=== PATIENT | male | born 1965 | race Caucasian/White ===

== ENCOUNTER 2023-02-14 05:41 | Day surgery (SDC) | payer OTHER ==
[2023-02-14] MEDS ORDERED: ALPRAZolam 0.25 MG TAB PO PRN (05:58)
[2023-02-14] MEDS ORDERED: ASPIRIN 325 MG TAB PO ONE (05:58)
[2023-02-14] MEDS ORDERED: ALPRAZolam 0.5 MG TAB PO PRN (05:58)
[2023-02-14] MEDS ORDERED: NITROGLYCERIN SL TABS 0.4 MG TAB SUBLINGUAL PRN (05:58)
[2023-02-14] MEDS: SODIUM CHLORIDE 0.9% 1,000 ML in EMPTY BAG 1 BAG IV SCH ×2 (06:29→16:43)
[2023-02-14] MEDS ORDERED: ASPIRIN 81 MG ONE (06:32)
[2023-02-14 06:34] LABS: Basophils % (A) 1 %; Eosinophils # (A) 0.3 k/uL (0-0.7); Eosinophils % (A) 4 %; HCT 44.2 % (39.0-53.0); HGB 14.9 gm/dL (13.0-17.5); Lymphocytes # (A) 1.8 k/uL (1.0-4.8); Lymphocytes % (A) 24 %; MCH 29.5 pg (25.0-35.0); MCHC 33.8 g/dL (31.0-37.0); MCV 87.2 fL (80.0-100.0); Monocytes # (A) 0.7 k/uL (0-1.0); Monocytes % (A) 9 %; Neutrophils # (A) 4.8 k/uL (1.3-7.7); Neutrophils % (A) 61 %; Platelet Count 258 k/uL (150-450); RBC 5.06 m/uL (4.30-5.90); RDW 12.5 % (11.5-15.5); WBC 7.8 k/uL (3.8-10.6)
[2023-02-14 06:50] LABS: African American GFR (CKD) >90 (>60 ml/min/1.73 sqM); Anion Gap 8 mmol/L; Blood Urea Nitrogen 16 mg/dL (9-20); Calcium 9.4 mg/dL (8.4-10.2); Carbon Dioxide 26 mmol/L (22-30); Chloride 105 mmol/L (98-107); Glucose 138 mg/dL (74-99); Non-African American GFR(CKD) >90 (>60 ml/min/1.73 sqM); Potassium 4.5 mmol/L (3.5-5.1); Sodium 139 mmol/L (137-145)
[2023-02-14] MEDS ORDERED: HEPARIN SODIUM 1,000 UN/ML (10ML VL) ONE (07:32)
[2023-02-14] MEDS ORDERED: MIDAZOLAM 2 MG/2 ML VIAL IV ONE (07:51)
[2023-02-14] MEDS ORDERED: LIDOCAINE 1% INJ 10MG/ML (20 ML MDV) SQ ONE (07:54)
[2023-02-14] MEDS ORDERED: HEPARIN SODIUM 1,000 UN/ML (10ML VL) IV ONE (07:58)
[2023-02-14] MEDS ORDERED: CLOPIDOGREL 75 MG TAB ONE (08:20)
[2023-02-14] MEDS ORDERED: CLOPIDOGREL 75 MG TAB PO ONE (08:22)
[2023-02-14] MEDS ORDERED: IOPAMIDOL-370 100ML BTL INJ ONE (08:22)
--- NOTE | 2023-02-14 08:28 | P.PCN ---
Date of Procedure: 02/14/23 Operative Findings: PERCUTANEOUS CLOSURE OF FENESTRATED INTERATRIAL SEPTUM PERFORMING PHYSICIAN: Alfredo Tate MD, [facility] PROCEDURE PERFORMED: 1. Successful percutaneous closure of PFO using Amplatzer Occluder with an excellent results and without any residual shunt. 2. Intracardiac echocardiogram imaging. 3. Right atrial angiogram. 4. Ultrasound-guided access of the right common femoral vein 2 INDICATION: This is a 57-year-old gentleman who was diagnosed recently with a stroke. He underwent further workup including transesophageal echocardiogram and that revealed patent foramen ovale with [id number] shunt. APPROACH: Right common femoral vein 2 COMPLICATION: None. LEVEL OF SEDATION: Moderate with sedation length of 29 minutes. PROCEDURE DESCRIPTION: After obtaining informed consent, the patient was brought to the cardiac slab off mill tender. The right common femoral vein was cannulated x2 using micropuncture technique under ultrasound guidance, the micropuncture wire passed easily, then I placed two 8-Honduran sheath in the right groin. Subsequently I cannulated the left common femoral vein with the same technique and I placed an 8-Honduran sheath there as well. At that point, anticoagulation was initiated using heparin and the patient was given a bolus of 4,000 units of heparin IV with continuous ACT monitoring throughout the procedure. After that, the intracardiac echocardiogram probe was advanced through one of the venous sheath all the way to the right atrium where we did interrogate the interatrial septum and identified the patent foramen ovale which was measured about 25 mm. Subsequently, I did cross the defect using 0.035 J-wire with the backup support of multipurpose catheter. The wire was advanced all the way to the left upper pulmonary vein and subsequently the catheter was advanced over the wire to the left upper pulmonary vein. The 0.035 J-wire was pulled out and then I advanced a giovanna wire. Subsequently, the multipurpose catheter was withdrawn out and the wire was left in the left upper pulmonary vein. After that, I did prep the Amplatzer PFO occluder under saline. Subsequently, I did exchange my 8-Honduran sheath into the Shuttle sheath over a 0.035 giovanna wire. The sheath was advanced all the way under fluoroscopy guidance to the left atrium. Subsequently, the dilator of the sheath was withdrawn out along with the wire. After that, I did load the Amplatzer occluder under continuous saline flush to the sheath. The device was advanced all the way through the sheath were I did where I did deploy initially the left atrial occluder and then I pulled back the sheath and the left atrial occluder all the way to the interatrial septum and then I deployed the right atrial occluder after that. Before I released the device, I did interrogate the septum using ice images on multiple views. After I realized that the device was stable enough and in good position the device was released. Interrogation using ice was also performed after the device was released. By the end I did right atrial angiogram. The procedure was completed without any complication. POSTPROCEDURE MANAGEMENT: 1. Dual anti-platelet therapy. 2. An echo in 24 hours, in 1 week, in 4 weeks, as well as in 6 months.
[2023-02-14] MEDS ORDERED: SODIUM CHLORIDE 0.9% 1,000 ML IV SCH (09:00)
[2023-02-14] MEDS ORDERED: CLOPIDOGREL 75 MG TAB PO SCH (21:00)
[2023-02-14] MEDS ORDERED: ATORVASTATIN 80 MG TAB PO SCH (21:00)
[2023-02-15] MEDS: SODIUM CHLORIDE 0.9% 1,000 ML in EMPTY BAG 1 BAG IV SCH (05:09)
[2023-02-15 07:16] VITALS: BP 105/68; PULSE 72; RESP 15; TEMP 97.9
--- NOTE | 2023-02-15 08:38 | XR ---
EXAMINATION TYPE: XR chest 2V DATE OF EXAM: 02/15/2023 COMPARISON: None INDICATION: ASD PFO placement TECHNIQUE: Frontal and lateral views of the chest are obtained. FINDINGS: The heart size is normal. The pulmonary vasculature is normal. The lungs are clear. Loop recorder is over the chest. There is placement of a device in the cardiac region. IMPRESSION: 1. No acute pulmonary process.
[2023-02-15] MEDS ORDERED: ASPIRIN 81 MG PO SCH (09:00)
[2023-02-15 09:55] LABS: African American GFR (CKD) 96.4 (60.0-200.0); Anion Gap 10.2 mmol/L (10.00-18.00); BUN/Creat Ratio 11.9 Ratio (12.00-20.00); Blood Urea Nitrogen 11.9 mg/dL (9.0-27.0); Calcium 9.5 mg/dL (8.7-10.3); Carbon Dioxide 22.8 mmol/L (20.0-27.5); Non-African American GFR(CKD) 83.2 (60.0-200.0); Potassium 4.6 mmol/L (3.5-5.5)
[2023-02-15 10:38] LABS: Basophils # (A) 0.04 X 10*3/uL (0.00-0.10); Basophils % (A) 0.4 %; Eosinophils # (A) 0.22 X 10*3/uL (0.04-0.35); Eosinophils % (A) 2.5 %; HGB 14.6 g/dL (13.0-17.0); Immature Grans, Automated 0.6 %; Lymphocytes # (A) 1.73 X 10*3/uL (0.90-5.00); Lymphocytes % (A) 19.4 %; MCH 28.8 pg (27.0-32.0); MCHC 33.2 g/dL (32.0-37.0); MCV 86.8 fL (80.0-97.0); Mean Platelet Volume 9.6 fL (9.5-12.2); Monocytes # (A) 0.83 X 10*3/uL (0.20-1.00); Monocytes % (A) 9.3 %; NRBC Per 100 WBC 0 /100 WBCS (0.0-0.0); Neutrophils # (A) 6.04 X 10*3/uL (1.80-7.70); Neutrophils % (A) 67.8 %; Platelet Count 231 X 10*3/uL (140-440); RBC 5.07 X 10*6/uL (4.40-5.60); RDW 12.5 % (11.5-14.5); WBC 8.91 X 10*3/uL (4.50-10.00)
--- NOTE | 2023-02-15 20:51 | P.DS ---
Providers Attending physician: Alfredo Tate Primary care physician: Corwin Berger MD Hospital Course: The patient is a pleasant 57-year-old gentleman who underwent yesterday successful percutaneous closure of PFO with a good results and no complication. He was seen this morning. He is asymptomatic and hemodynamically stable. Right groin is soft and nontender with no bruises. The patient is going to be discharged home. Plan - Discharge Summary Discharge Rx Participant: No New Discharge Prescriptions: Continue Clopidogrel [Plavix] 75 mg PO HS Atorvastatin [Lipitor] 80 mg PO HS Aspirin 81 mg PO DAILY Discharge Medication List Atorvastatin [Lipitor] 80 mg PO HS 01/11/23 [History] Clopidogrel [Plavix] 75 mg PO HS 01/11/23 [History] Aspirin 81 mg PO DAILY 02/14/23 [History] Follow up Appointment(s)/Referral(s): Alfredo Tate MD [STAFF PHYSICIAN] - 03/15/23 5:00 pm (NEEDS A 1 WEEK, 1 MONTH, 6 MONTHS, AND 1 YEAR FOLLOW UP APPOINTMENT. patient to go to office in [place].) Patient Instructions/Handouts: Moderate Sedation (DC), Heart Catheterization (DC), Patent Foramen Ovale (DC) Activity/Diet/Wound Care/Special Instructions: *NO LIFTING, PUSHING, OR PULLING ANYTHING OVER 5 POUNDS FOR 5 DAYS *NO DRIVING FOR 3 DAYS *YOU CAN SHOWER TOMORROW BUT DO NOT SUBMERSE YOUR PUNCTURE SITE IN WATER FOR A FEW DAYS TO PREVENT INFECTION - SO NOT TUB BATHS, POOLS, HOT TUBS, DISHES..ETC *ANY SIGNS OF BLEEDING (HARDNESS, SWELLING, OR EXCESSIVE BRUISING) HOLD DIRECT PRESSURE ON YOUR PUNCTURE SITE AND COME TO THE NEAREST EMERGENCY ROOM TO GET YOUR PUNCTURE SITE LOOKED AT - DO NOT DRIVE YOURSELF! EITHER CALL EMS OR HAVE SOMEONE DRIVE YOU! Discharge Disposition: HOME SELF-CARE
--- NOTE | 2023-02-16 13:49 | CA ---
Transthoracic Echo Report Name: Itz Grace Age: 57 Gender: M : 1965 Exam Date: 02/15/2023 07:21 Exam Location: [place] [facility] Ht (in): 67 Wt (lb): 202 Ordering Physician: Alfredo Tate MD ([id number]) Attending/Referring Phys: Alfredo Tate MD ([id number]) Direct Sales Consultant Veronique Patterson RDCS Procedure CPT: Indications: Post ASD/PFO Insertion Cardiac Hx: Technical Quality: Good Contrast 1: Total Dose (mL): Contrast 2: Total Dose (mL): MEASUREMENTS (Male / Female) Normal Values 2D ECHO LV Diastolic Diameter PLAX 4.9 cm 4.2 - 5.9 / 3.9 - 5.3 cm LV Systolic Diameter PLAX 2.5 cm IVS Diastolic Thickness 1.1 cm 0.6 - 1.0 / 0.6 - 0.9 cm LVPW Diastolic Thickness 1.1 cm 0.6 - 1.0 / 0.6 - 0.9 cm LV Relative Wall Thickness 0.4 RV Internal Dim ED PLAX 2.7 cm LA Systolic Diameter LX 3.4 cm 3.0 - 4.0 / 2.7 - 3.8 cm LV Diastolic Volume MOD BP 77.3 cm??? 67 - 155 / 56 - 104 cm??? LV Systolic Volume MOD BP 39.7 cm??? 22 - 58 / 19 - 49 cm??? LV Ejection Fraction MOD BP 48.7 % >= 55 % LV Diastolic Volume MOD 4C 81.9 cm??? LV Systolic Volume MOD 4C 42.2 cm??? LV Ejection Fraction MOD 4C 48.5 % LV Diastolic Length 4C 8.1 cm LV Systolic Length 4C 6.3 cm LV Diastolic Volume MOD 2C 65.5 cm??? LV Systolic Volume MOD 2C 34.9 cm??? LV Ejection Fraction MOD 2C 46.6 % LV Diastolic Length 2C 7.0 cm LV Systolic Length 2C 6.8 cm LA Volume 38.2 cm??? 18 - 58 / 22 - 52 cm??? M-MODE Aortic Root Diameter MM 3.2 cm MV E Point Septal Separation 0.4 cm AV Cusp Separation MM 2.4 cm DOPPLER AV Peak Velocity 101.4 cm/s AV Peak Gradient 4.1 mmHg MV Area PHT 4.0 cm??? Mitral E Point Velocity 52.7 cm/s Mitral A Point Velocity 50.2 cm/s Mitral E to A Ratio 1.1 MV Deceleration Time 189.4 ms MV E' Velocity 6.3 cm/s Mitral E to MV E' Ratio 8.3 FINDINGS Left Ventricle Left ventricular ejection fraction is estimated at 50-55 %. Left ventricular cavity size normal. Borderline left ventricular hypertrophy. Normal left ventricular wall motion. Right Ventricle Normal right ventricular size and function. No TR Right Atrium Normal right atrial size. Closure device seen on the atrial level without evidence of shunt. Left Atrium Normal left atrial size. Mitral Valve Structurally normal mitral valve. No evidence for mitral valve prolapse. Trace mitral regurgitation. Aortic Valve Trileaflet aortic valve. No aortic valve stenosis or regurgitation. Tricuspid Valve Structurally normal tricuspid valve. No tricuspid stenosis, regurgitation or prolapse. Pulmonic Valve Structurally normal pulmonic valve. No pulmonic regurgitation. Pericardium Normal pericardium. No pericardial effusion. Aorta Normal size aortic root and proximal ascending aorta. CONCLUSIONS Left ventricular ejection fraction 50-55% Borderline increased left ventricular wall thickness Closure device seen in the interatrial septum without shunt Trace mitral regurgitation No pericardial effusion Previewed by: Dr. Darin Mendez DO (Electronically Signed) Final Date: 16 February 2023 13:49
== END 2023-02-15 11:20 | disposition home or self-care (01) ==
LOC: CATHCVL 05:41 → 6NMEDSUR 08:20 → CATHCVL 02-15 11:20
PROVIDERS: ATTEND Internal Medicine Interventional Cardiology
DX: Q21.12 Patent foramen ovale (principal); I63.9 Cerebral infarction, unspecified; E78.5 Hyperlipidemia, unspecified; Z95.818 Presence of other cardiac implants and grafts; Z79.01 Long term (current) use of anticoagulants; Z79.899 Other long term (current) drug therapy; Z82.49 Family history of ischemic heart disease and other diseases of the circulatory system
CPT/HCPCS: 93580; 93662; 99152; 99153; 93306; 80048 ×2; 85025 ×2; 71046; J2250; J0690; J2001; J1644; Q9967

== ENCOUNTER 2023-04-18 07:31 | Day surgery (SDC) | payer OTHER ==
[~2023-04-18 07:31] MED LIST: ALPRAZolam 0.25 MG TAB PO PRN; ALPRAZolam 0.5 MG TAB PO PRN; ASPIRIN 325 MG TAB PO STA; ATORVASTATIN 80 MG TAB PO STA; HEPARIN SODIUM,PORCINE 10,000 UNIT in SODIUM CHLORIDE 0.9% 1,000 ML IRRIGATION PRN; HEPARIN SODIUM,PORCINE 2,500 UNIT in SODIUM CHLORIDE 0.9% 250 ML IRRIGATION PRN; NITROGLYCERIN SL TABS 0.4 MG TAB SUBLINGUAL PRN; SODIUM CHLORIDE 0.9% 1,000 ML in EMPTY BAG 1 BAG IV SCH
[2023-04-18] MEDS ORDERED: SODIUM CHLORIDE 0.9% 1,000 ML IV ONE (07:38)
[2023-04-18 07:53] VITALS: RESP 18; TEMP 98.2
[2023-04-18] MEDS ORDERED: VERAPAMIL 2.5 MG/ML 2 ML AMP ONE ×2 (09:12→09:16)
[2023-04-18] MEDS ORDERED: MIDAZOLAM 2 MG/2 ML VIAL IV ONE ×2 (09:16→09:26)
[2023-04-18] MEDS ORDERED: LIDOCAINE 1% INJ 10MG/ML (5 ML VIAL-PF) SQ ONE (09:18)
[2023-04-18] MEDS ORDERED: VERAPAMIL SYRINGE (5 MG/10 ML) INTRAARTER ONE (09:19)
[2023-04-18] MEDS ORDERED: HEPARIN SODIUM 1,000 UN/ML (10ML VL) IV ONE (09:23)
[2023-04-18] MEDS ORDERED: IOPAMIDOL-370 100ML BTL INJ ONE (09:34)
[2023-04-18] MEDS ORDERED: RX INFO: IV CONTRAST WAS GIVEN 1 EACH MISC MISCELLANE PRN (09:37)
--- NOTE | 2023-04-18 09:43 | P.PCN ---
Date of Procedure: 04/18/23 Operative Findings: CARDIAC CATHETERIZATION PERFORMING PHYSICIAN: Alfredo Tate MD, RPVI PROCEDURE PERFORMED: 1. Selective right and left coronary angiogram 2. Left heart catheterization INDICATION: The patient is a 57-year-old gentleman with hypertension and dyslipidemia and recently diagnosed stroke status post percutaneous closure of patent foramen ovale. 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 The test came in to be abnormal. It did show evidence of ischemia. Definitely diagnosed as was requested by the patient. For that reason a heart catheterization was advised. COMPLICATION: None APPROACH: Right radial artery LEVEL OF SEDATION: Moderate with a sedation length of 20 minutes PROCEDURE DESCRIPTION: After obtaining an informed consent, the patient was brought to cardiac wharf labourer. Local anesthesia was performed using lidocaine subcutaneously. The right radial artery was cannulated using Seldinger technique, the guidewire passed easily, following that we advanced a 5-Finnish sheath dilator assembly, the wire and dilator were removed and sheath was flushed. Following that, 2 mg of verapamil along with 3000 unit heparin were given. Selective right and left coronary angiogram using a 6-Finnish JR4 and JL 3.5 catheters. Following that we did left heart catheterization using 6-Finnish pigtail catheter. The procedure was completed there was no complication. SELECTIVE CORONARY ANGIOGRAM: The right coronary artery: Large caliber vessel and a dominant vessel and calcified vessel. The mid RCA has a focal calcified lesion appears to be in the range of 70%. The RCA distally bifurcates into PDA and PLV branches. The PDA branch appeared to be angiographically normal and the PLV branch has a lesion appeared to be in the range of 60%. Left main: Calcified with disease appears to be in the range of 20-30%. Bifurcates into an ulcer he asked and LAD. The left circumflex: The LCx is chronically occluded and fills by ipsilateral collateral. The LCx appeared to be calcified as well. The ramus intermedius: Has an ostial lesion appears to be in the range of 80-90%. The left anterior descending artery: The LAD proximally has a lesion appears to be in the range of 80-90%. The mid and distal LAD appeared to have mild disease only. The LAD gives rises into the first diagonal branch which appeared to be disease as well and is about 2 mm vessel and also second diagonal branch which has an ostial lesion appears to be in the range of 60%. HEMODYNAMICS: The LVEDP was 8 mmHg was no significant gradient across aortic valve CONCLUSION: 1. Calcified right and left coronary system 2. Severe triple-vessel coronary artery disease. 3. Severe disease involving the mid RCA and PLV branch of the RCA 4. Occluded left circumflex coronary system 5. Severe disease involving the ostial ramus intermedius 6. Severe disease involving the proximal LAD POSTPROCEDURE MANAGEMENT: Giving the above anatomy I would advised the patient to be evaluated by cardiothoracic surgeon for evaluation of coronary artery that is grafting. Meanwhile aggressive cholesterol control including high intensity statin and anti-ischemic medications including beta emma.
[2023-04-18] MEDS ORDERED: SODIUM CHLORIDE 0.9% 1,000 ML IV SCH (09:45)
--- NOTE | 2023-04-18 11:48 | CT ---
EXAMINATION TYPE: CT chest wo con DATE OF EXAM: 04/18/2023 COMPARISON: NONE HISTORY: Eval aorta. Pre-op CABG CT DLP: 714 mGycm. Automated Exposure Control for Dose Reduction was Utilized. TECHNIQUE: CT scan of the thorax is performed without IV contrast. FINDINGS: LUNGS: The lungs are grossly clear, there is no concerning parenchymal mass or nodule identified. T here is no pleural effusion or pneumothorax seen. The tracheobronchial tree is patent. MEDIASTINUM: Lack of IV contrast is noted to limit evaluation for mediastinal and especially hilar ad enopathy. There are no definitive greater than 1 cm mediastinal lymph nodes. No cardiomegaly or per icardial effusion is seen. There is three-vessel coronary artery calcification and/or stents. There i s surgical change from atrial septal repair are noted. The aorta measures up to roughly 3.1 cm and th e root. Ascending aorta measures up to 3.5 cm in diameter axial image 27. There is normal three-vesse l origin from the aortic arch. No descending thoracic aortic aneurysm. OTHER: Contrast is being excreted in both kidneys presumed from recent angiogram evaluation. IMPRESSION: No acute findings are evident. Further details as noted above.
--- NOTE | 2023-04-18 12:18 | P.GSCN ---
History of Present Illness Consult date: 04/18/23 Reason for Consult: 3V CAD Requesting physician: Alfredo Tate History of present illness: This is a 57 year old male patient who follows outpatient with Nurse Practitioner Anastasia Nolan for primary care and Dr. Tate for cardiology. He recently had a stroke and workup revealed patent foramen ovale. He underwent PFO closure with Amplatzer Occluder in January 2023. Subsequently he underwent stress test as required by the [employer] for his job, and the stress test was abnormal. He was recommended to undergo heart catheterization which was completed today by Dr. Tate which demonstrated mid RCA stenosis 70%, PLV branch of the RCA 60%, VIDEO CLERK of the left circumflex, ostial ramus 80-90%, and proximal LAD with 80-90% with ostial diagonal #2 60%. Due to these findings consultation was placed for Dr. Barr from cardiothoracic surgery for surgical recommendations, and the case was discussed between Dr. Barr and Dr. Tate. Review of Systems Review of systems was completed and was negative Past Medical History Past Medical History: Coronary Artery Disease (CAD), CVA/TIA, Hyperlipidemia Additional Past Medical History / Comment(s): 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 recent abnormal stress test History of Any Multi-Drug Resistant Organisms: None Reported Additional Past Surgical History / Comment(s): PFO closure with amplatzer occluder 02/14/23 Past Anesthesia/Blood Transfusion Reactions: No Reported Reaction Type of Cardiac Device: Loop Past Psychological History: No Psychological Hx Reported Smoking Status: Never smoker Past Alcohol Use History: Daily Additional Past Alcohol Use History / Comment(s): "few beers daily"(never went thru withdrawal) Past Drug Use History: None Reported - Past Family History Father Family Medical History: No Reported History Additional Family Medical History / Comment(s): after gall bladder surgery Mother Family Medical History: No Reported History Medications and Allergies Home Medications Medication Instructions Recorded Confirmed Type Atorvastatin [Lipitor] 80 mg PO HS 01/11/23 04/18/23 History Clopidogrel [Plavix] 75 mg PO HS 01/11/23 04/18/23 History Allergies Allergy/AdvReac Type Severity Reaction Status Date / Time No Known Allergies Allergy Verified 04/18/23 09:06 Surgical - Exam Vital Signs Temp Pulse Resp BP Pulse Ox 98.2 F 74 18 145/83 97 04/18/23 07:51 04/18/23 07:51 04/18/23 07:51 04/18/23 07:51 04/18/23 07:51 CONSTITUTIONAL: Awake and alert, appears comfortable, cooperative, well- developed, well-nourished, no pain, no acute distress EYES: Pupils equal, round, reactive to light, normal ocular movement ENT: Moist mucous membranes without oral lesions present NECK: No masses, no bruits, trachea midline RESPIRATORY: Lungs sounds clear to auscultation bilaterally. Respirations even, nonlabored. Currently on room air with oxygen saturation 98%. Strong cough. No chest wall deformities. No clubbing or cyanosis present CARDIOVASCULAR: S1, S2 present. Regular rate and rhythm, sinus rhythm on telemetry. Palpable peripheral pulses bilaterally. No edema present. No calf pain or tenderness noted. No significant lower extremity varicosities noted. Left radial Dylan's test less than 8 seconds. GASTROINTESTINAL: Abdomen soft, nontender, nondistended without masses or organomegaly noted. There is no rebound or guarding present. Active bowel sounds present 4 quadrants. GENITOURINARY: Deferred INTEGUMENTARY: Skin is warm and dry with evidence of good perfusion. NEUROLOGIC: Cranial nerves II through XII intact, normal coordination, no obvious motor or sensory deficits, speech is normal MUSKULOSKELETAL: Able to move all extremities, strength equal bilaterally, normal posture PSYCHIATRIC: Alert and oriented to person place and time, appropriate affect, intact judgment and insight Results - Labs 04/18/23 14:35 - Imaging Additional studies: Heart cath films reviewed with Dr. Barr Assessment and Plan Assessment: Triple vessel coronary artery disease Recent CVA History of PFO status post closure in January 2023 Hyperlipidemia, treated Daily EtOH use Plan: The patient was seen and examined in the extended stay unit with Dr. Barr. Chart/diagnostics were reviewed. The case was discussed in detail between Dr. Sarah jean and Dr. Tate. The usual perioperative course of open heart surgery was discussed with the patient as well as his daughter, risks and benefits reviewed, all questions were answered. The patient does consent to surgery. Preoperative testing was initiated, once completed will calculate STS risk score and discuss with the patient. Once testing has been completed patient may be discharged to home to follow-up in the office with Dr. Barr next week to review test results and schedule surgery. This was discussed with the patient and he is agreeable. Recommend initiation of aspirin and beta emma therapy, continue Plavix and Lipitor. Plavix will need to be held for 1 week prior to surgery. More recommendations to follow. I have personally seen and examined the patient, performed the documentation and the assessment and plan as written. Number of minutes spent on the visit: 30. SUMAN FelicianoC Attending Addendum: Pt seen and evaluated with DEBEADER above. Agree with her assessment and plan. This is a 57 y/o M asymptomatic who underwent elective cardiac cath for a positive stress test. Cath reveals significant 3v disease. He is a good candidate for CABG, which we will plan for electively. I spent 35 minutes reviewing the data and discussing findings with the patient.
--- NOTE | 2023-04-18 13:15 | US ---
EXAMINATION TYPE: US carotid duplex BILAT DATE OF EXAM: 04/18/2023 COMPARISON: NONE CLINICAL INDICATION: Male, 57 years old with history of preop cardiac surgery; hx tia per patient. P reOP. No htn. TECHNIQUE: Carotid duplex ultrasound examination. Indirect Doppler criteria was utilized. FINDINGS: EXAM MEASUREMENTS: RIGHT: Peak Systolic Velocity (PSV) cm/sec ----- Right CCA: 72.1 ----- Right ICA: 89.2 ----- Right ECA: 80.1 ICA/CCA ratio: 1.2 RIGHT: End Diastole cm/sec ----- Right CCA: 16.0 ----- Right ICA: 16.7 ----- Right ECA: 12.8 LEFT: Peak Systolic Velocity (PSV) cm/sec ----- Left CCA: 88.5 ----- Left ICA: 114.5 ----- Left ECA: 89.2 ICA/CCA ratio: 1.3 LEFT: End Diastole cm/sec ----- Left CCA: 18.4 ----- Left ICA: 25.7 ----- Left ECA: 7.6 VERTEBRALS (direction of flow): Right Vertebral: Antegrade Left Vertebral: Antegrade Rhythm: Normal SHOW OPERATIONS SUPERVISOR NOTES: No significant stenosis, plaque, elevated velocities or wall thickening. IMPRESSION: No significant stenosis, plaque, elevated velocities or wall thickening. Criteria for Assigning % of Stenosis / Diameter reduction (Estimation based on the indirect measurements of the internal carotid artery velocities (ICA PSV). 1. Normal (no stenosis)=ICA PSV < 125 cm/s: ratio < 2.0: ICA EDV<40 cm/s. 2. Less than 50% stenosis=ICA PSV < 125 cm/s: ratio < 2.0: ICA EDV<40 cm/s. 3. 50 to 69% stenosis=ICA PSV of 125 to 230 cm/s: ration 2.0 ? 4.0: ICA EDV 40-100 cm/s. 4. Greater than 70% stenosis to near occlusion= ICA PSV > 230 cm/s: ratio > 4.0: ICA EDV > 100 cm/s. 5. Near occlusion= ICA PSV velocities may be low or undetectable: variable ratio and ICA EDV. 6. Total occlusion=unable to detect flow.
[2023-04-18 15:05] LABS: ALT 31 U/L (4-49); AST 28 U/L (17-59); African American GFR (CKD) >90 (>60 ml/min/1.73 sqM); Alkaline Phosphatase 101 U/L (38-126); Anion Gap 11 mmol/L; Blood Urea Nitrogen 13 mg/dL (9-20); Calcium 8.8 mg/dL (8.4-10.2); Carbon Dioxide 22 mmol/L (22-30); Chloride 105 mmol/L (98-107); Glucose 96 mg/dL (74-99); Magnesium 2.1 mg/dL (1.6-2.3); Non-African American GFR(CKD) >90 (>60 ml/min/1.73 sqM); Potassium 4.2 mmol/L (3.5-5.1); Sodium 138 mmol/L (137-145); Total Bilirubin 1.1 mg/dL (0.2-1.3); Total Protein 7.1 g/dL (6.3-8.2)
[2023-04-18 15:13] VITALS: BP 133/75; PULSE 76
[2023-04-18 16:23] LABS: Appearance,Urine Clear (Clear); Bilirubin,Urine Negative (Negative); Blood,Urine Negative (Negative); Color,Urine Yellow; Glucose,Urine (UA) 2+ (Negative); Ketones,Urine Negative (Negative); Leukocyte Esterase,Urine Negative (Negative); Nitrite,Urine Negative (Negative); Protein,Urine Negative (Negative); Specific Gravity,Urine 1.036 (1.001-1.035)
--- NOTE | 2023-04-18 17:11 | CA ---
Transthoracic Echo Report Name: Itz Grace Age: 57 Gender: M : 1965 Exam Date: 04/18/2023 10:39 Exam Location: [place] [facility] Ht (in): 67 Wt (lb): 204 Ordering Physician: Janet Adrian Attending/Referring Phys: [id number], [employer] Assembler Skinny Ramirez Procedure CPT: Indications: preop cardiac surgery Cardiac Hx: Technical Quality: Fair Contrast 1: Total Dose (mL): Contrast 2: Total Dose (mL): MEASUREMENTS (Male / Female) Normal Values 2D ECHO LV Diastolic Diameter PLAX 2.9 cm 4.2 - 5.9 / 3.9 - 5.3 cm LV Systolic Diameter PLAX 2.1 cm IVS Diastolic Thickness 0.9 cm 0.6 - 1.0 / 0.6 - 0.9 cm LVPW Diastolic Thickness 1.4 cm 0.6 - 1.0 / 0.6 - 0.9 cm LV Relative Wall Thickness 0.8 RV Internal Dim ED PLAX 2.5 cm LVOT Diameter 2.3 cm Aortic Root Diameter 3.0 cm LA Systolic Diameter LX 2.7 cm 3.0 - 4.0 / 2.7 - 3.8 cm LV Diastolic Volume MOD BP 50.4 cm??? 67 - 155 / 56 - 104 cm??? LV Systolic Volume MOD BP 19.1 cm??? 22 - 58 / 19 - 49 cm??? LV Ejection Fraction MOD BP 62.2 % >= 55 % LV Diastolic Volume MOD 4C 59.3 cm??? LV Systolic Volume MOD 4C 18.6 cm??? LV Ejection Fraction MOD 4C 68.7 % LV Diastolic Length 4C 6.8 cm LV Systolic Length 4C 5.9 cm LV Diastolic Volume MOD 2C 41.5 cm??? LV Systolic Volume MOD 2C 18.1 cm??? LV Ejection Fraction MOD 2C 56.3 % LV Diastolic Length 2C 6.6 cm LV Systolic Length 2C 5.4 cm LA Volume 40.6 cm??? 18 - 58 / 22 - 52 cm??? Ascending Aorta Diameter 2.8 cm DOPPLER AV Peak Velocity 116.4 cm/s AV Peak Gradient 5.4 mmHg LVOT Peak Velocity 69.2 cm/s LVOT Peak Gradient 1.9 mmHg AV Area Cont Eq pk 2.4 cm??? MV Peak Velocity 71.9 cm/s MV Peak Gradient 2.1 mmHg MV Mean Velocity 38.6 cm/s MV Mean Gradient 0.7 mmHg MV Velocity Time Integral 25.0 cm Mitral E Point Velocity 66.7 cm/s Mitral A Point Velocity 58.9 cm/s Mitral E to A Ratio 1.1 MV Deceleration Time 223.8 ms TR Peak Velocity 125.7 cm/s TR Peak Gradient 6.3 mmHg Right Ventricular Systolic Press 11.3 mmHg FINDINGS Left Ventricle Left ventricular ejection fraction is estimated at 55-60__ %. Right Ventricle Normal right ventricular size. Right Atrium Normal right atrial size. Left Atrium Normal left atrial size. Mitral Valve Structurally normal mitral valve. Mild MR. Aortic Valve Trileaflet aortic valve. No aortic valve stenosis or regurgitation. Tricuspid Valve Structurally normal tricuspid valve. Trace TR. Pulmonic Valve Pulmonic valve not well visualized. No pulmonic regurgitation. Pericardium Normal pericardium. Aorta Normal size aortic root and proximal ascending aorta. CONCLUSIONS Normal LV function Mild mitral regurgitation Previewed by: Dr. Braden Juárez MD (Electronically Signed) Final Date: 18 Apr 2023 17:10
[2023-04-18 20:37] LABS: Chol/HDL Ratio 4.87 Ratio; LDL Cholesterol,Calculated 101.4 mg/dL (0.0-131.0)
[2023-04-19 10:30] LABS: Hepatitis A Antibody IgM Nonreactive (Nonreactive); Hepatitis B Core IgM Nonreactive (Nonreactive); Hepatitis B Surface Antigen Nonreactive (Nonreactive); Hepatitis C IgG Antibody Nonreactive (Nonreactive)
--- NOTE | 2023-04-20 09:51 | US ---
EXAMINATION TYPE: US vein mapping BILAT DATE OF EXAM: 04/18/2023 1:02 PM COMPARISON: NONE CLINICAL INDICATION: Male, 57 years old with history of preop cardiac surgery; PreCABG SIDE PERFORMED: Bilateral TECHNIQUE: Lower extremity saphenous vein is examined and measured utilizing real time linear array sonography. Patient History: Heart Disease: Yes Vascular Surgery: No Discoloration: No Hypertension: No Diabetes: Unknown Paralysis: No Varicosities: No Edema: No DUPLEX FINDINGS: Greater Saphenous: Color flow seen Measurements in mm: Right Greater Saphenous: Groin: 5.9 x 5.9 mm High Thigh: 5.0 x 5.0 mm Mid Thigh: 4.1 x 3.7 mm Above Knee: 4.3 x 3.5 mm Knee: 4.2 x 3.2 mm Below Knee: 3.9 x 3.3 mm Mid Calf: 3.3 x 2.3 mm At Ankle: 3.2 x 2.3 mm Left Greater Saphenous: Groin: 6.0 x 5.1 mm High Thigh: 4.8 x 4.0 mm Mid Thigh: 4.4 x 3.2 mm Above Knee: 4.6 x 3.8 mm Knee: 3.9 x 3.5 mm Below Knee: 3.7 x 2.9 mm Mid Calf: 2.9 x 2.5 mm At Ankle: 3.3 x 2.5 mm IMPRESSION: 1. Bilateral GSV measurements listed above. 2. Performing surgeon to determine viability as conduit.
--- NOTE | 2023-04-20 09:51 | US ---
EXAMINATION TYPE: Pre-Operative Non-Invasive Evaluation of the hand for Potential Radial Artery Ba , Measurements only DATE OF EXAM: 04/18/2023 1:02 PM CLINICAL INDICATION: Male, 57 years old with history of measurements only; PreCABG. SIDE PERFORMED: Left TECHNIQUE: Radial artery is measured utilizing real time linear array sonography. Dominant hand: Left Duplex Findings: Radial Artery: Color flow seen Measurements in mm, transverse view: Left Radial: Proximal: 2.1 x 2.5 mm Mid: 2.8 x 2.3 mm Distal: 3.3 x 1.8 mm IMPRESSION: 1. Left radial artery measurements listed above. 2. Performing surgeon to determine viability as conduit.
--- NOTE | 2023-04-20 09:52 | US ---
EXAMINATION TYPE: US arterial LE single level DATE OF EXAM: 04/18/2023 1:55 PM CLINICAL INDICATION: Male, 57 years old with history of Ankle Brachial Index (LINDA); PreCabg History of: Hypertension: No Diabetic: No TIA/CVA: Yes Previous Vascular Surgery: No CAD: Yes Vascular Ulcers: No Claudication: No Gangrene: No Doppler Waveforms: Right: Monophasic to biphasic Left: Monophasic to biphasic Pulse Volume Recording: Pressure Gradients: Right Brachial Pressure: Deferred due to right radial heart cath approach today Left Brachial Pressure: 116 Ankle-Brachial Indices: Right: 1.2 Left: 1.2 Loss of phasicity is nonspecific. IMPRESSION: Normal bilateral LINDA values.
== END 2023-04-18 15:00 | disposition home or self-care (01) ==
LOC: CATHCVL 07:31
PROVIDERS: ATTEND Internal Medicine Interventional Cardiology
DX: I25.10 Atherosclerotic heart disease of native coronary artery without angina pectoris (principal); I10 Essential (primary) hypertension; E78.5 Hyperlipidemia, unspecified; I25.9 Chronic ischemic heart disease, unspecified; Z86.73 Personal history of transient ischemic attack (TIA), and cerebral infarction without residual deficits; Z98.890 Other specified postprocedural states; Z79.899 Other long term (current) drug therapy; Z79.02 Long term (current) use of antithrombotics/antiplatelets
CPT/HCPCS: 99152 ×2; 94150; 93306; 93458; 80061; 80053; 80074; 84443; 83735; 85730; 81003; 87070; 83036; 93931; 93970; 93922; 93880; 71250; C1769; C1894; J2250; J2001; J1644; Q9967

== ENCOUNTER → 2023-04-24 | Outpatient (CLI) | payer OTHER | END | disposition home or self-care (01) | LOC: LABPAT 15:37 | PROVIDERS: ATTEND Thoracic Surgery (Cardiothoracic Vascular Surgery) | DX: I25.10 Atherosclerotic heart disease of native coronary artery without angina pectoris (principal) | CPT/HCPCS: 86850; 86900; 86901 ==

== ENCOUNTER 2023-05-01 05:39 | Inpatient (IN) | payer OTHER ==
[~2023-05-01 05:39] MED LIST changes: +ALBUMIN HUMAN 25% 50 ML IV ONE; +ALBUMIN HUMAN 5% 500 ML IVPB ONE; -ALPRAZolam 0.25 MG TAB PO PRN; -ALPRAZolam 0.5 MG TAB PO PRN; +ASPIRIN 325 MG TAB PO ONE; -ASPIRIN 325 MG TAB PO STA; +ATORVASTATIN 10 MG TAB PO ONE; -ATORVASTATIN 80 MG TAB PO STA; +CALCIUM CHLORIDE 100 MG/ML 10 ML SYRINGE IV ONE; +CHLORHEXIDINE GLUCONATE 15 ML CUP MUCOUS MEM ONE; +CLEVIDIPINE BUTYRATE 25 MG in EMPTY BAG 1 BAG IV ONE; +DILTIAZEM 125 MG in SODIUM CHLORIDE 0.9% 100 ML IV ONE; +ELECTROLYTE-A SOLUTION 1,000 ML with POTASSIUM CHLORIDE 100 MEQ, MAGNESIUM SULFATE 16 M... IV ONE; +ELECTROLYTE-A SOLUTION 1,000 ML with POTASSIUM CHLORIDE 40 MEQ, MAGNESIUM SULFATE 16 ME... IV ONE; +HEPARIN SODIUM 1,000 UN/ML (10ML VL) IV ONE; -HEPARIN SODIUM,PORCINE 10,000 UNIT in SODIUM CHLORIDE 0.9% 1,000 ML IRRIGATION PRN; -HEPARIN SODIUM,PORCINE 2,500 UNIT in SODIUM CHLORIDE 0.9% 250 ML IRRIGATION PRN; +HEPARIN SODIUM,PORCINE 5,000 UNIT in SODIUM CHLORIDE 0.9% 500 ML 500 ML IV ONE; +INSULIN REGULAR 100 UNIT in SODIUM CHLORIDE 0.9% 100 ML IV ONE; +LACTATED RINGERS 1,000 ML IV ONE; +MAGNESIUM SULFATE 16.24 MEQ in EMPTY SYRINGE 1 SYR IV ONE; +MANNITOL 25% 12.5 GM/50 ML VIAL IV ONE; +METOPROLOL TARTRATE 12.5 MG TAB PO ONE; +NITROGLYCERIN SL TABS 0.4 MG TAB SUBLINGUAL ONE; -NITROGLYCERIN SL TABS 0.4 MG TAB SUBLINGUAL PRN; +NITROGLYCERIN-D5W PMX 25 MG/250 ML BTL IV ONE; +NITROGLYCERIN-D5W PMX 50 MG in DEXTROSE/WATER 1 250ML.BAG IV ONE; +NOREPINEPHRINE 4 MG in SODIUM CHLORIDE 0.9% 250 ML IV ONE; +PAPAVERINE 360 MG in SODIUM CHLORIDE 0.9% 90 ML IV ONE; +PHENYLEPHRINE 10 MG/ML VIAL IV ONE; +PHENYLEPHRINE 40 MG in SODIUM CHLORIDE 0.9% 250 ML IV ONE; +PROTAMINE SULFATE 10 MG/ML 25 ML VIAL IV ONE; +PROTAMINE SULFATE 250 MG in EMPTY BAG 1 BAG IV ONE; +SODIUM BICARB 8.4% 50 ML SYR (1 MEQ/ML) IV ONE; +SODIUM CHLORIDE 0.9% 1,000 ML IV ONE; -SODIUM CHLORIDE 0.9% 1,000 ML in EMPTY BAG 1 BAG IV SCH; +TRANEXAMIC ACID 2,000 MG in SODIUM CHLORIDE 0.9% 80 ML IV ONE; +ceFAZolin 1,000 MG in SODIUM CHLORIDE 0.9% IRRIGATIO 1,000 ML IRRIGATION ONE; +propofoL 1,000 MG/100 ML VIAL IV ONE
[2023-05-01 06:26] LABS: Glucose,Whole Blood 136 mg/dL (70-110)
[2023-05-01 07:04] LABS: Prothrombin Time 10.3 sec (9.0-12.0)
[2023-05-01] MEDS ORDERED: PROPOFOL 10 MG/ML 20 ML VIAL IV ONE (07:15)
[2023-05-01] MEDS ORDERED: MIDAZOLAM HCL 10 MG/10 ML VIAL ONE (07:15)
[2023-05-01] MEDS ORDERED: fentaNYL (PF) 50 MCG/ML 50 ML VIAL ONE (07:15)
[2023-05-01] MEDS ORDERED: SUCCINYLCHOLINE CHLORIDE 200 MG/10 ML VIAL IV ONE (07:15)
[2023-05-01] MEDS ORDERED: HEPARIN SODIUM,PORCINE 5,000 UNIT/ML 1 ML VIAL ONE (07:15)
[2023-05-01] MEDS ORDERED: HEPARIN SODIUM,PORCINE 10,000 UNIT/ML 1 ML VIAL ONE (07:15)
[2023-05-01] MEDS ORDERED: MAGNESIUM SULFATE 4 MEQ/ML 10ML VIAL ONE (07:15)
[2023-05-01] MEDS ORDERED: VECURONIUM 10 MG VIAL IV ONE (07:15)
[2023-05-01] MEDS ORDERED: ELECTROLYTE-R (PH 7.4) 1,000 ML IV.SOLN IV ONE (07:15)
[2023-05-01] MEDS ORDERED: TRANEXAMIC 1,000 MG/100ML-NACL PREMIX BAG ONE (07:15)
[2023-05-01] MEDS ORDERED: LIDOCAINE 2% INJ 20 MG/ML (2 ML VIAL) ONE (07:15)
[2023-05-01 07:19] LABS: Basophils % (A) 0 %; Eosinophils # (A) 0.2 k/uL (0-0.7); Eosinophils % (A) 2 %; HCT 39.3 % (39.0-53.0); HGB 13.3 gm/dL (13.0-17.5); Lymphocytes # (A) 1.3 k/uL (1.0-4.8); Lymphocytes % (A) 15 %; MCH 29.2 pg (25.0-35.0); MCHC 33.9 g/dL (31.0-37.0); Mean Platelet Volume 7.8; Monocytes # (A) 0.6 k/uL (0-1.0); Monocytes % (A) 7 %; Neutrophils # (A) 6.2 k/uL (1.3-7.7); Neutrophils % (A) 74 %; Platelet Count 240 k/uL (150-450); RBC 4.56 m/uL (4.30-5.90); RDW 12.6 % (11.5-15.5); WBC 8.4 k/uL (3.8-10.6)
[2023-05-01 08:13] LABS: ABG Base Excess -1.2 mmol/L; ABG Glucose Whole Blood 127 mg/dL (75-99); ABG HCO3 25 mmol/L (21-25); ABG Hematocrit 41 % (34.0-46.0); ABG Ionized Calcium 4.8 mg/dL (4.5-5.3); ABG Lactic Acid Whole Blood 1.3 mmol/L (0.5-1.6); ABG Oxygen Saturation 99.3 % (94-97); ABG PCO2 45 mmHg (35-45); ABG PH 7.35 (7.35-7.45); ABG PO2 333 mmHg (83-108); ABG Potassium Whole Blood 4.8 mmol/L (3.4-4.5); ABG Sodium Whole Blood 139 mmol/L (135-146); ABG TCO2 26 mmol/L (19-24)
--- NOTE | 2023-05-01 09:23 | P.ANPRN ---
Procedure Note - Anesthesia - Invasive Line Right Central Line Time Out Performed: Yes ([id number]) Date of Procedure: 05/01/23 Time of Procedure: 07:14 Location of Patient: Phase I Preparation: Sterile Prep, Sterile Dressing Arterial Line Location: Radial (already placed) Central Line Location: Internal Jugular (right) Ultrasound Used: Yes Purpose - Visualization and Identification of Vasculature: Yes Needle Guage: 18g angio Image Stored and Saved: Yes Narrative: Central line placement per sterile protocol utilized. right ij neck prepped and draped. Sterile protocol. local angio cvp jwire uneventful dilation and introduction right IJ cordis. Lumen bled and flushed
--- NOTE | 2023-05-01 09:24 | P.ANPRN ---
Procedure Note - Anesthesia - Invasive Line Right [place] Time Out Performed: Yes ([id number]) Date of Procedure: 05/01/23 Time of Procedure: 07:33 Location of Patient: PreOp Preparation: Sterile Prep, Sterile Dressing [place] Line Location: Internal Jugular (right) Ultrasound Used: No Purpose - Visualization and Identification of Vasculature: No Image Stored and Saved: No Narrative: Central line placement per sterile protocol utilized. swan floated in sheath to wedge at 53cm. b/d. w/d 5 cm and secured at 48cm.
--- NOTE | 2023-05-01 09:26 | P.ANPRN ---
Procedure Note - Anesthesia - GREGORY Intraop Pre Bypass GREGORY Intraop - Anesthesia Indication: CAD Date of Procedure: 05/01/23 Pre-operative Diagnosis: CAD Post-operative Diagnosis: CAD Surgeon: Azar Barr Left Ventricle: wnl Ejection Fraction: Normal Regional Wall Motion Abnormalities: None Left Ventricle Hypertrophy: No R. Ventricle Function: Normal Anatomy: Trileaflet Aortic Stenosis: None Aortic Regurgitation: None Mitral Stenosis: None Mitral Regurgitation: None Tricuspid Stenosis: None Tricuspid Regurgitation: None Pulmonic Stenosis: None Pulmonic Regurgitation: None R. Atrial Dilation: No R. Atrial PFO: No (previous closure) L. Atrial Dilation: No Aortic Dissection: No Aortic Calcification: Mild Plural Effusion: None
[2023-05-01 10:10] LABS: ABG Base Excess -1.8 mmol/L; ABG Glucose Whole Blood 192 mg/dL (75-99); ABG HCO3 22 mmol/L (21-25); ABG Hematocrit 38 % (34.0-46.0); ABG Ionized Calcium 4.6 mg/dL (4.5-5.3); ABG Lactic Acid Whole Blood 1.3 mmol/L (0.5-1.6); ABG PCO2 35 mmHg (35-45); ABG PH 7.41 (7.35-7.45); ABG PO2 207 mmHg (83-108); ABG Potassium Whole Blood 5.7 mmol/L (3.4-4.5); ABG Sodium Whole Blood 135 mmol/L (135-146); ABG TCO2 23 mmol/L (19-24)
[2023-05-01 10:42] LABS: ABG Base Excess -3.7 mmol/L; ABG Glucose Whole Blood 155 mg/dL (75-99); ABG HCO3 22 mmol/L (21-25); ABG Hematocrit 30 % (34.0-46.0); ABG Ionized Calcium 4.1 mg/dL (4.5-5.3); ABG Lactic Acid Whole Blood 1.5 mmol/L (0.5-1.6); ABG Oxygen Saturation 99.5 % (94-97); ABG PCO2 41 mmHg (35-45); ABG PH 7.34 (7.35-7.45); ABG PO2 353 mmHg (83-108); ABG Potassium Whole Blood 4.7 mmol/L (3.4-4.5); ABG Sodium Whole Blood 132 mmol/L (135-146); ABG TCO2 23 mmol/L (19-24)
[2023-05-01 11:20] LABS: ABG Base Excess -0.4 mmol/L; ABG Glucose Whole Blood 142 mg/dL (75-99); ABG HCO3 25 mmol/L (21-25); ABG Hematocrit 28 % (34.0-46.0); ABG Ionized Calcium 4.2 mg/dL (4.5-5.3); ABG Lactic Acid Whole Blood 1.8 mmol/L (0.5-1.6); ABG Oxygen Saturation 99.7 % (94-97); ABG PCO2 41 mmHg (35-45); ABG PH 7.39 (7.35-7.45); ABG PO2 378 mmHg (83-108); ABG Potassium Whole Blood 4.2 mmol/L (3.4-4.5); ABG Sodium Whole Blood 137 mmol/L (135-146); ABG TCO2 26 mmol/L (19-24)
[2023-05-01 11:50] LABS: ABG Base Excess -0.7 mmol/L; ABG Glucose Whole Blood 136 mg/dL (75-99); ABG HCO3 25 mmol/L (21-25); ABG Hematocrit 27 % (34.0-46.0); ABG Ionized Calcium 4.1 mg/dL (4.5-5.3); ABG Lactic Acid Whole Blood 1.9 mmol/L (0.5-1.6); ABG Oxygen Saturation 99.5 % (94-97); ABG PCO2 43 mmHg (35-45); ABG PH 7.37 (7.35-7.45); ABG PO2 350 mmHg (83-108); ABG Sodium Whole Blood 139 mmol/L (135-146); ABG TCO2 26 mmol/L (19-24)
[2023-05-01 12:48] LABS: ABG Base Excess -0.6 mmol/L; ABG Glucose Whole Blood 142 mg/dL (75-99); ABG HCO3 25 mmol/L (21-25); ABG Hematocrit 27 % (34.0-46.0); ABG Ionized Calcium 4.2 mg/dL (4.5-5.3); ABG Oxygen Saturation 99.4 % (94-97); ABG PCO2 45 mmHg (35-45); ABG PH 7.35 (7.35-7.45); ABG PO2 351 mmHg (83-108); ABG Potassium Whole Blood 4.1 mmol/L (3.4-4.5); ABG Sodium Whole Blood 139 mmol/L (135-146); ABG TCO2 27 mmol/L (19-24)
[2023-05-01 13:19] LABS: ABG Base Excess -0.5 mmol/L; ABG Glucose Whole Blood 178 mg/dL (75-99); ABG HCO3 25 mmol/L (21-25); ABG Hematocrit 26 % (34.0-46.0); ABG Ionized Calcium 4.2 mg/dL (4.5-5.3); ABG Lactic Acid Whole Blood 1.9 mmol/L (0.5-1.6); ABG Oxygen Saturation 99.5 % (94-97); ABG PCO2 42 mmHg (35-45); ABG PH 7.38 (7.35-7.45); ABG PO2 335 mmHg (83-108); ABG Potassium Whole Blood 4.2 mmol/L (3.4-4.5); ABG Sodium Whole Blood 140 mmol/L (135-146); ABG TCO2 26 mmol/L (19-24)
[2023-05-01 13:49] LABS: ABG Base Excess -1.7 mmol/L; ABG Glucose Whole Blood 169 mg/dL (75-99); ABG HCO3 25 mmol/L (21-25); ABG Hematocrit 26 % (34.0-46.0); ABG Ionized Calcium 4.2 mg/dL (4.5-5.3); ABG Oxygen Saturation 99.4 % (94-97); ABG PCO2 49 mmHg (35-45); ABG PH 7.31 (7.35-7.45); ABG PO2 336 mmHg (83-108); ABG Potassium Whole Blood 4.1 mmol/L (3.4-4.5); ABG Sodium Whole Blood 140 mmol/L (135-146); ABG TCO2 26 mmol/L (19-24)
[2023-05-01 14:09] LABS: ABG Lactic Acid Whole Blood 2.1 mmol/L (0.5-1.6)
[2023-05-01 14:11] LABS: ABG Lactic Acid Whole Blood 2.6 mmol/L (0.5-1.6)
[2023-05-01 14:39] LABS: ABG Base Excess -1.5 mmol/L; ABG Glucose Whole Blood 126 mg/dL (75-99); ABG HCO3 25 mmol/L (21-25); ABG Hematocrit 31 % (34.0-46.0); ABG Ionized Calcium 4.5 mg/dL (4.5-5.3); ABG Oxygen Saturation 98.2 % (94-97); ABG PCO2 49 mmHg (35-45); ABG PH 7.32 (7.35-7.45); ABG PO2 133 mmHg (83-108); ABG Sodium Whole Blood 141 mmol/L (135-146); ABG TCO2 27 mmol/L (19-24)
--- NOTE | 2023-05-01 15:03 | P.OP ---
Date of Procedure: 05/01/23 Preoperative Diagnosis: 3v CAD CVA HLD PFO s/p percutaneous closure Postoperative Diagnosis: Same Procedure(s) Performed: 1. Coronary artery bypass grafting x 5. Left internal thoracic artery sequential to 1st diagonal branch and left anterior descending artery. Radial artery from aorta to ramus intermedius. Saphenous vein from aorta sequential to posterior descending artery and postero-lateral artery. 2. Endoscopic left radial and left greater saphenous vein harvest 3. Left atrial appendage ligation with #35mm AtriClip 4. Trans-esophageal echo 5. Graft flow measurements using the medi-stim flow meter. Anesthesia: GETA Surgeon: Azar Barr Fast Food Assistant Restaurant Manager #1: Gabrielle Pulido Fast Food Assistant Restaurant Manager #2: Calvin Oshea Estimated Blood Loss (ml): 500 Condition: critical Disposition: ICU Indications for Procedure: This patient is a 57 year-old male with a history of CVA, PFO closure, HTN and HLD who had a stress test performed which was positive. He underwent elective coronary angiography which showed 3v CAD.
[2023-05-01 15:10] LABS: ABG Lactic Acid Whole Blood 2.5 mmol/L (0.5-1.6)
[2023-05-01] MEDS ORDERED: Magnesium Replacement Protocol 1 EACH MISC MISCELLANE PRN (15:12)
[2023-05-01] MEDS ORDERED: METOCLOPRAMIDE 5 MG/ML 2 ML VIAL IVP PRN (15:12)
[2023-05-01] MEDS ORDERED: ONDANSETRON 4 MG/2 ML VIAL IVP PRN (15:12)
[2023-05-01] MEDS ORDERED: DEXTROSE 5% IN WATER 100 ML with AMIODARONE 150 MG IV PRN (15:12)
[2023-05-01] MEDS ORDERED: AMIODARONE 450 MG in DEXTROSE 5% IN WATER 250 ML IV PRN ×2 (15:12)
[2023-05-01] MEDS ORDERED: hydrALAZINE HCL 20 MG/ML 1 ML VIAL IVP PRN (15:12)
[2023-05-01] MEDS ORDERED: Potassium Replacement Protocol 1 EACH MISC MISCELLANE PRN (15:12)
[2023-05-01] MEDS ORDERED: AMIODARONE 360 MG in DEXTROSE 5% IN WATER 200 ML IV PRN ×2 (15:12)
[2023-05-01] MEDS ORDERED: DEXTROSE 50% SYRINGE 50 ML IVP PRN ×2 (15:12)
[2023-05-01] MEDS ORDERED: BENZOCAINE/MENTHOL LOZENG 1 EACH LOZENGE MUCOUS MEM PRN (15:12)
[2023-05-01] MEDS ORDERED: IPRATROPIUM-ALBUTEROL 3 ML NEB INHALATION PRN (15:12)
[2023-05-01] MEDS ORDERED: DEXMEDETOMIDINE/0.9% NACL(PMX) 400 MCG in EMPTY BAG 1 BAG IV SCH (15:15)
[2023-05-01] MEDS ORDERED: NITROGLYCERIN-D5W PMX 50 MG in DEXTROSE/WATER 1 250ML.BAG IV SCH (15:15)
[2023-05-01] MEDS ORDERED: CLEVIDIPINE BUTYRATE 25 MG in EMPTY BAG 1 BAG IV SCH (15:15)
[2023-05-01 15:32] LABS: Glucose,Whole Blood 111 mg/dL (70-110)
[2023-05-01] MEDS: LACTATED RINGERS 1,000 ML IV SCH (15:38)
[2023-05-01] MEDS: NOREPINEPHRINE 4 MG in SODIUM CHLORIDE 0.9% 250 ML IV SCH (15:40)
[2023-05-01] MEDS: ALBUMIN HUMAN 5% 250 ML in EMPTY BAG 1 BAG IVPB PRN ×5 (15:41→23:09)
[2023-05-01 15:50] LABS: Basophils % (A) 0 %; Eosinophils % (A) 0 %; HGB 11.4 gm/dL (13.0-17.5); Lymphocytes # (A) 0.8 k/uL (1.0-4.8); Lymphocytes % (A) 3 %; MCH 29.7 pg (25.0-35.0); MCHC 33.5 g/dL (31.0-37.0); MCV 88.5 fL (80.0-100.0); Mean Platelet Volume 8.1; Monocytes # (A) 1.3 k/uL (0-1.0); Monocytes % (A) 5 %; Neutrophils # (A) 22.3 k/uL (1.3-7.7); Neutrophils % (A) 91 %; Platelet Count 160 k/uL (150-450); RBC 3.84 m/uL (4.30-5.90); RDW 12.7 % (11.5-15.5); WBC 24.5 k/uL (3.8-10.6)
[2023-05-01 15:55] LABS: ABG Base Excess -0.4 mmol/L; ABG HCO3 25 mmol/L (21-25); ABG PCO2 44 mmHg (35-45); ABG PH 7.36 (7.35-7.45); ABG PO2 246 mmHg (83-108); ABG TCO2 26 mmol/L (19-24); Allen Test Performed? Yes
[2023-05-01 15:59] LABS: Ionized Calcium 4.8 mg/dL (4.5-5.3)
[2023-05-01 16:02] LABS: INR 1.1 (<1.2); Prothrombin Time 11.4 sec (9.0-12.0)
--- NOTE | 2023-05-01 16:13 | XR ---
EXAMINATION TYPE: XR chest 1V portable DATE OF EXAM: 05/01/2023 Comparison: 02/15/2023 Clinical History: 57-year-old male Post Operative Cardiac Surgery Findings: Median sternotomy wires are present with post-CABG clips. Retained epicardial pacer leads. NG tube is present. ET tube tip may be low just at the entry of the right mainstem bronchus. Right IJ [place] cath eter catheter in place. Heart mildly enlarged. Interstitial prominence. Suspect trace effusions. No a ppreciable pneumothorax. Impression: 1. ET tube low, tip probably just entering the right mainstem bronchus opening. Pull back 3 cm and re assess at follow-up. Called to Nurse Rodriguez on 2SICU at 4:08pm. 2. Mild cardiomegaly. Trace pleural effusions and mild patchy postoperative atelectasis in the lower lungs.
[2023-05-01 16:16] LABS: ALT 28 U/L (4-49); AST 58 U/L (17-59); African American GFR (CKD) >90 (>60 ml/min/1.73 sqM); Albumin 2.9 g/dL (3.5-5.0); Alkaline Phosphatase 72 U/L (38-126); Anion Gap 6 mmol/L; Blood Urea Nitrogen 13 mg/dL (9-20); Calcium 7.8 mg/dL (8.4-10.2); Carbon Dioxide 25 mmol/L (22-30); Chloride 108 mmol/L (98-107); Glucose 98 mg/dL (74-99); Magnesium 2.7 mg/dL (1.6-2.3); Non-African American GFR(CKD) >90 (>60 ml/min/1.73 sqM); Potassium 4.4 mmol/L (3.5-5.1); Sodium 139 mmol/L (137-145); Total Bilirubin 0.8 mg/dL (0.2-1.3); Total Protein 5.1 g/dL (6.3-8.2)
[2023-05-01] MEDS: HEPARIN SODIUM,PORCINE/PF 5,000 UNIT/0.5 ML SYRINGE SQ SCH (16:19)
[2023-05-01 16:37] LABS: Glucose,Whole Blood 148 mg/dL (70-110)
[2023-05-01] MEDS: IPRATROPIUM-ALBUTEROL 3 ML NEB INHALATION SCH ×2 (16:52→20:28)
[2023-05-01] MEDS ORDERED: MILRINONE-D5W PMX 20 MG in DEXTROSE/WATER 1 100ML.BAG IV SCH (17:00)
[2023-05-01] MEDS: INSULIN REGULAR 100 UNIT in SODIUM CHLORIDE 0.9% 100 ML IV SCH (17:05)
[2023-05-01 17:37] LABS: Glucose,Whole Blood 176 mg/dL (70-110)
--- NOTE | 2023-05-01 17:43 | P.CONS ---
History of Present Illness - Reason for Consult Consult date: 05/01/23 - Chief Complaint post-CABG, medical management - History of Present Illness 57-year-old man with medical history of CAD, hyperlipidemia history of TIA present for CABG. Medicine consulted by cardio's thoracic surgery team for medical management. Patient recently had a left heart catheterization which showed mid RCA stenosis of 70%, PLV branch of the RCA was 60%, RN HOUSE SUPERVISOR of the left circumflex, ostial ramus was a 90%, proximal LAD was 8090% with ostial diagonal of 60% disease. He underwent CABG today with grafts from the OSPINA-D1-LAD, RA- Ramus, SVG-PDA-NIEVES, without any immediate postop complications. He is intubated and sedated at the time I examined cannot participate in history or review of systems. Upon my evaluation, patient was afebrile, 105/66, pulmonary artery pressure was 35/21, central venous pressure was 15, last cardiac output was noted to be 30.9, cardiac index is 1.9, heart rate was 101. CBC demonstrated leukocytosis to 24.5, hemoglobin of 11.4. Basic metabolic panel is unremarkable. Liver function tests showed low total protein of 5.1, albumin of 2.9. ABG demonst rated pH of 7.36, pO2 of 246, pCO2 of 44. EKG demonstrated normal sinus rhythm with normal axis, normal LA interval, normal QRS duration, normal R-wave progression, but overall low voltage. Chest x-ray showed cardiomegaly with left-sided pleural effusion. General: intubated, sedated HEENT: normocephalic, atraumatic, no tracheal deviation Respiratory: symmetric chest rise, no cyanosis, ventilator dependent CVS: perfusing all extremities, no distal gangrene, present pitting edema GI: soft, ND : no SPT, no CVAT, hutton is present Neuro: sedated Assessment: CAD status post CABG, postop day 0 Hyperlipidemia History of TIA Plan: Vital signs reviewed and noted in the HPI Lab work reviewed and noted in the HPI EKG and CXR are personally interpreted and noted in the HPI Continue insulin drip with target sugars between 140-180 Resume atorvastatin, but increase home dose from 10 mg daily to 80 mg at bedtime Continue aspirin, Plavix daily Continue metoprolol 12.5 mg twice a day Patient is full code Past Medical History Past Medical History: Coronary Artery Disease (CAD), CVA/TIA, Hyperlipidemia Additional Past Medical History / Comment(s): 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 recent abnormal stress test History of Any Multi-Drug Resistant Organisms: None Reported Past Surgical History: Heart Catheterization Additional Past Surgical History / Comment(s): PFO closure with amplatzer occluder 02/14/23 Past Anesthesia/Blood Transfusion Reactions: No Reported Reaction Additional Past Anesthesia/Blood Transfusion Reaction / Comm: no hx blood transfusion Type of Cardiac Device: Loop Smoking Status: Never smoker - Past Family History Father Family Medical History: No Reported History Additional Family Medical History / Comment(s): after gall bladder surgery Mother Family Medical History: No Reported History Medications and Allergies Home Medications Medication Instructions Recorded Confirmed Type Atorvastatin [Lipitor] 80 mg PO HS 01/11/23 04/25/23 History Clopidogrel [Plavix] 75 mg PO HS 01/11/23 04/25/23 History Allergies Allergy/AdvReac Type Severity Reaction Status Date / Time No Known Allergies Allergy Verified 05/01/23 06:13 Physical Exam Osteopathic Statement: *. No significant issues noted on an osteopathic structural exam other than those noted in the History and Physical/Consult. Vitals: Vital Signs Temp Pulse Pulse Pulse Resp BP BP 05/01/23 17:15 101 H 25 H 05/01/23 17:00 98.6 F 93 15 05/01/23 16:55 96 05/01/23 16:48 05/01/23 16:45 93 25 H 05/01/23 16:30 92 21 05/01/23 16:15 88 24 05/01/23 16:00 97.5 F L 88 18 05/01/23 15:45 85 18 05/01/23 15:30 97.5 F L 82 17 05/01/23 06:13 97.7 F 81 82 16 127/81 134/82 Pulse Ox FiO2 05/01/23 17:15 96 05/01/23 17:00 98 05/01/23 16:55 05/01/23 16:48 50 05/01/23 16:45 99 05/01/23 16:30 97 05/01/23 16:15 98 05/01/23 16:00 98 100 05/01/23 15:45 98 05/01/23 15:30 98 100 05/01/23 06:13 96 Intake and Output 05/01/23 05/01/23 05/01/23 06:59 14:59 22:59 Intake Total 54 739.552 Output Total 2450 600 Balance -2396 139.552 Intake: IV 54 80 cardiac output ns 80 Intake, IV Titration 659.552 Amount Albumin Human 5% 250 ml 500 In Empty Bag 1 bag @ 250 mls/hr IVPB Q1HR PRN Rx#: [id number] Lactated Ringers 1,000 ml 100 @ 50 mls/hr IV .Q20H ANITA Rx#:[id number] Norepinephrine 4 mg In 6.328 Sodium Chloride 0.9% 250 ml @ 0.02 MCG/KG/MIN 7. 445 mls/hr IV .Q24H ANITA Rx#:[id number] ceFAZolin 2 gm In Sodium 50 Chloride 0.9% 50 ml @ 100 mls/hr IVPB Q8HR ANITA Rx# :[id number] propofoL 1,000 mg In 3.224 Empty Bag 1 bag @ Titrate IV .Q0M ANITA Rx#: [id number] Output: Chest Tube Drainage [address] 70 Rt pleural Lt pleural CT 190 Drainage 0 Left Arm 0 Urine 650 340 Estimated Blood Loss 1800 Other: Weight 97.7 kg ABP, PAP, CO, CI - Last 8 Hours Arterial Blood Pressure 105/66 Arterial Blood Pressure 99/64 Arterial Blood Pressure 108/67 Arterial Blood Pressure 94/59 Arterial Blood Pressure 106/65 Arterial Blood Pressure 111/60 Arterial Blood Pressure 108/63 Pulmonary Artery Pressure 35/21 Pulmonary Artery Pressure 38/23 Pulmonary Artery Pressure 38/25 Pulmonary Artery Pressure 37/22 Pulmonary Artery Pressure 34/22 Pulmonary Artery Pressure 34/20 Pulmonary Artery Pressure 32/18 Pulmonary Artery Pressure 31/14 Cardiac Output 3.9 Cardiac Output 3.6 Cardiac Output 4.0 Cardiac Index 1.9 Cardiac Index 1.7 Cardiac Index 2.0 Results CBC & Chem 7: 05/01/23 15:30 05/01/23 15:30 Labs: Abnormal Lab Results - Last 24 Hours (Table) 04/24/23 05/01/23 05/01/23 Range/Units 16:00 06:25 08:16 WBC (3.8-10.6) k/uL RBC (4.30-5.90) m/uL Hgb (13.0-17.5) gm/dL Hct (39.0-53.0) % Neutrophils # (1.3-7.7) k/uL Lymphocytes # (1.0-4.8) k/uL Monocytes # (0-1.0) k/uL ABG pH (7.35-7.45) ABG pCO2 (35-45) mmHg ABG pO2 333 H (83-108) mmHg ABG Total CO2 26 H (19-24) mmol/L ABG O2 Saturation 99.3 H (94-97) % ABG Hematocrit (34.0-46.0) % ABG Sodium (135-146) mmol/L ABG Potassium 4.8 H (3.4-4.5) mmol/L ABG Ionized Calcium (4.5-5.3) mg/dL ABG Glucose 127 H (75-99) mg/dL ABG Lactic Acid (0.5-1.6) mmol/L Hemoglobin (13.0-17.5) gm/dL Chloride (98-107) mmol/L POC Glucose (mg/dL) 136 H (70-110) mg/dL Calcium (8.4-10.2) mg/dL Magnesium (1.6-2.3) mg/dL Total Protein (6.3-8.2) g/dL Albumin (3.5-5.0) g/dL Arterial Blood Potassium 4.8 H (3.4-4.5) mmol/L Arterial Blood Glucose 127 H (75-99) mg/dL Crossmatch See Detail 05/01/23 05/01/23 05/01/23 Range/Units 10:13 10:45 11:21 WBC (3.8-10.6) k/uL RBC (4.30-5.90) m/uL Hgb (13.0-17.5) gm/dL Hct (39.0-53.0) % Neutrophils # (1.3-7.7) k/uL Lymphocytes # (1.0-4.8) k/uL Monocytes # (0-1.0) k/uL ABG pH 7.34 L (7.35-7.45) ABG pCO2 (35-45) mmHg ABG pO2 207 H 353 H 378 H (83-108) mmHg ABG Total CO2 26 H (19-24) mmol/L ABG O2 Saturation 99.0 H 99.5 H 99.7 H (94-97) % ABG Hematocrit 30 L 28 L (34.0-46.0) % ABG Sodium 132 L (135-146) mmol/L ABG Potassium 5.7 H 4.7 H (3.4-4.5) mmol/L ABG Ionized Calcium 4.1 L 4.2 L (4.5-5.3) mg/dL ABG Glucose 192 H 155 H 142 H (75-99) mg/dL ABG Lactic Acid 1.8 H (0.5-1.6) mmol/L Hemoglobin 12.5 L 9.8 L 9.2 L (13.0-17.5) gm/dL Chloride (98-107) mmol/L POC Glucose (mg/dL) (70-110) mg/dL Calcium (8.4-10.2) mg/dL Magnesium (1.6-2.3) mg/dL Total Protein (6.3-8.2) g/dL Albumin (3.5-5.0) g/dL Arterial Blood Potassium 5.7 H 4.7 H (3.4-4.5) mmol/L Arterial Blood Glucose 192 H 155 H 142 H (75-99) mg/dL Crossmatch 05/01/23 05/01/23 05/01/23 Range/Units 11:53 12:51 13:21 WBC (3.8-10.6) k/uL RBC (4.30-5.90) m/uL Hgb (13.0-17.5) gm/dL Hct (39.0-53.0) % Neutrophils # (1.3-7.7) k/uL Lymphocytes # (1.0-4.8) k/uL Monocytes # (0-1.0) k/uL ABG pH (7.35-7.45) ABG pCO2 (35-45) mmHg ABG pO2 350 H 351 H 335 H (83-108) mmHg ABG Total CO2 26 H 27 H 26 H (19-24) mmol/L ABG O2 Saturation 99.5 H 99.4 H 99.5 H (94-97) % ABG Hematocrit 27 L 27 L 26 L (34.0-46.0) % ABG Sodium (135-146) mmol/L ABG Potassium (3.4-4.5) mmol/L ABG Ionized Calcium 4.1 L 4.2 L 4.2 L (4.5-5.3) mg/dL ABG Glucose 136 H 142 H 178 H (75-99) mg/dL ABG Lactic Acid 1.9 H 2.1 H 1.9 H (0.5-1.6) mmol/L Hemoglobin 8.9 L 8.8 L 8.6 L (13.0-17.5) gm/dL Chloride (98-107) mmol/L POC Glucose (mg/dL) (70-110) mg/dL Calcium (8.4-10.2) mg/dL Magnesium (1.6-2.3) mg/dL Total Protein (6.3-8.2) g/dL Albumin (3.5-5.0) g/dL Arterial Blood Potassium (3.4-4.5) mmol/L Arterial Blood Glucose 136 H 142 H 178 H (75-99) mg/dL Crossmatch 05/01/23 05/01/23 05/01/23 Range/Units 13:51 14:42 15:30 WBC (3.8-10.6) k/uL RBC (4.30-5.90) m/uL Hgb (13.0-17.5) gm/dL Hct (39.0-53.0) % Neutrophils # (1.3-7.7) k/uL Lymphocytes # (1.0-4.8) k/uL Monocytes # (0-1.0) k/uL ABG pH 7.31 L 7.32 L (7.35-7.45) ABG pCO2 49 H 49 H (35-45) mmHg ABG pO2 336 H 133 H (83-108) mmHg ABG Total CO2 26 H 27 H (19-24) mmol/L ABG O2 Saturation 99.4 H 98.2 H (94-97) % ABG Hematocrit 26 L 31 L (34.0-46.0) % ABG Sodium (135-146) mmol/L ABG Potassium (3.4-4.5) mmol/L ABG Ionized Calcium 4.2 L (4.5-5.3) mg/dL ABG Glucose 169 H 126 H (75-99) mg/dL ABG Lactic Acid 2.6 H* 2.5 H* (0.5-1.6) mmol/L Hemoglobin 8.4 L 10.2 L (13.0-17.5) gm/dL Chloride (98-107) mmol/L POC Glucose (mg/dL) 111 H (70-110) mg/dL Calcium (8.4-10.2) mg/dL Magnesium (1.6-2.3) mg/dL Total Protein (6.3-8.2) g/dL Albumin (3.5-5.0) g/dL Arterial Blood Potassium (3.4-4.5) mmol/L Arterial Blood Glucose 169 H 126 H (75-99) mg/dL Crossmatch 05/01/23 05/01/23 05/01/23 Range/Units 15:30 15:30 15:52 WBC 24.5 H (3.8-10.6) k/uL RBC 3.84 L (4.30-5.90) m/uL Hgb 11.4 L (13.0-17.5) gm/dL Hct 34.0 L (39.0-53.0) % Neutrophils # 22.3 H (1.3-7.7) k/uL Lymphocytes # 0.8 L (1.0-4.8) k/uL Monocytes # 1.3 H (0-1.0) k/uL ABG pH (7.35-7.45) ABG pCO2 (35-45) mmHg ABG pO2 246 H (83-108) mmHg ABG Total CO2 26 H (19-24) mmol/L ABG O2 Saturation 100.0 H (94-97) % ABG Hematocrit (34.0-46.0) % ABG Sodium (135-146) mmol/L ABG Potassium (3.4-4.5) mmol/L ABG Ionized Calcium (4.5-5.3) mg/dL ABG Glucose (75-99) mg/dL ABG Lactic Acid (0.5-1.6) mmol/L Hemoglobin (13.0-17.5) gm/dL Chloride 108 H (98-107) mmol/L POC Glucose (mg/dL) (70-110) mg/dL Calcium 7.8 L (8.4-10.2) mg/dL Magnesium 2.7 H (1.6-2.3) mg/dL Total Protein 5.1 L (6.3-8.2) g/dL Albumin 2.9 L (3.5-5.0) g/dL Arterial Blood Potassium (3.4-4.5) mmol/L Arterial Blood Glucose (75-99) mg/dL Crossmatch 05/01/23 Range/Units 16:35 WBC (3.8-10.6) k/uL RBC (4.30-5.90) m/uL Hgb (13.0-17.5) gm/dL Hct (39.0-53.0) % Neutrophils # (1.3-7.7) k/uL Lymphocytes # (1.0-4.8) k/uL Monocytes # (0-1.0) k/uL ABG pH (7.35-7.45) ABG pCO2 (35-45) mmHg ABG pO2 (83-108) mmHg ABG Total CO2 (19-24) mmol/L ABG O2 Saturation (94-97) % ABG Hematocrit (34.0-46.0) % ABG Sodium (135-146) mmol/L ABG Potassium (3.4-4.5) mmol/L ABG Ionized Calcium (4.5-5.3) mg/dL ABG Glucose (75-99) mg/dL ABG Lactic Acid (0.5-1.6) mmol/L Hemoglobin (13.0-17.5) gm/dL Chloride (98-107) mmol/L POC Glucose (mg/dL) 148 H (70-110) mg/dL Calcium (8.4-10.2) mg/dL Magnesium (1.6-2.3) mg/dL Total Protein (6.3-8.2) g/dL Albumin (3.5-5.0) g/dL Arterial Blood Potassium (3.4-4.5) mmol/L Arterial Blood Glucose (75-99) mg/dL Crossmatch
[2023-05-01] MEDS: ACETAMINOPHEN IV (For NPO) 1,000 MG in EMPTY BAG 1 BAG IVPB SCH (17:59)
[2023-05-01] MEDS ORDERED: MUPIROCIN 2% OINT 22 GM TUBE NASAL ONE (18:15)
[2023-05-01 18:46] LABS: Basophils % (A) 0 %; Eosinophils % (A) 0 %; HCT 29.8 % (39.0-53.0); HGB 10.1 gm/dL (13.0-17.5); Lymphocytes # (A) 0.4 k/uL (1.0-4.8); Lymphocytes % (A) 2 %; MCH 29.8 pg (25.0-35.0); MCHC 33.9 g/dL (31.0-37.0); Mean Platelet Volume 9.8; Monocytes # (A) 1.1 k/uL (0-1.0); Monocytes % (A) 5 %; Neutrophils % (A) 92 %; Platelet Count 174 k/uL (150-450); RBC 3.39 m/uL (4.30-5.90); RDW 12.6 % (11.5-15.5); WBC 20.6 k/uL (3.8-10.6)
[2023-05-01] MEDS ORDERED: ALBUMIN HUMAN 5% 250 ML in EMPTY BAG 1 BAG IVPB ONE (19:03)
[2023-05-01 19:11] LABS: Glucose,Whole Blood 160 mg/dL (70-110)
[2023-05-01] MEDS: VASOPRESSIN 60 UNIT in SODIUM CHLORIDE 0.9% 150 ML IV SCH (19:31)
[2023-05-01 19:48] LABS: Glucose,Whole Blood 175 mg/dL (70-110)
[2023-05-01 20:29] LABS: Basophils % (A) 0 %; Eosinophils # (A) 0.1 k/uL (0-0.7); Eosinophils % (A) 0 %; HCT 27.6 % (39.0-53.0); HGB 9.4 gm/dL (13.0-17.5); Lymphocytes # (A) 0.4 k/uL (1.0-4.8); Lymphocytes % (A) 2 %; MCH 29.9 pg (25.0-35.0); MCHC 33.9 g/dL (31.0-37.0); MCV 88.1 fL (80.0-100.0); Mean Platelet Volume 8.2; Monocytes # (A) 0.8 k/uL (0-1.0); Monocytes % (A) 5 %; Neutrophils # (A) 16.6 k/uL (1.3-7.7); Neutrophils % (A) 92 %; Platelet Count 176 k/uL (150-450); RBC 3.13 m/uL (4.30-5.90); RDW 12.7 % (11.5-15.5)
[2023-05-01 21:04] LABS: INR 1.1 (<1.2); Partial Thromboplastin Time 33.3 sec (22.0-30.0); Prothrombin Time 11.4 sec (9.0-12.0)
[2023-05-01 21:24] LABS: Glucose,Whole Blood 185 mg/dL (70-110)
[2023-05-01] MEDS ORDERED: HYDROmorphone 0.5 MG/0.5 ML SYRINGE IVP STA (21:25)
[2023-05-01] MEDS: PANTOPRAZOLE 40 MG/10 ML VIAL IVP SCH (21:31)
[2023-05-01] MEDS: ATORVASTATIN 80 MG TAB PO SCH (21:50)
[2023-05-01] MEDS: SENNOSIDES-DOCUSATE SODIUM 1 EACH TAB PO SCH (21:50)
[2023-05-01 22:10] LABS: ABG Base Excess -1.8 mmol/L; ABG HCO3 23 mmol/L (21-25); ABG PCO2 37 mmHg (35-45); ABG PO2 157 mmHg (83-108); ABG TCO2 24 mmol/L (19-24); Allen Test Performed? Yes; Glucose,Whole Blood 173 mg/dL (70-110)
[2023-05-01 23:23] LABS: Glucose,Whole Blood 167 mg/dL (70-110)
[2023-05-02] MEDS: ACETAMINOPHEN IV (For NPO) 1,000 MG in EMPTY BAG 1 BAG IVPB SCH (00:11)
[2023-05-02 00:20] LABS: Glucose,Whole Blood 156 mg/dL (70-110)
[2023-05-02] MEDS: HEPARIN SODIUM,PORCINE/PF 5,000 UNIT/0.5 ML SYRINGE SQ SCH ×3 (00:29→16:21)
[2023-05-02] MEDS: NOREPINEPHRINE 4 MG in SODIUM CHLORIDE 0.9% 250 ML IV SCH (00:32)
[2023-05-02] MEDS: HYDROcodone/APAP 5-325MG 1 EACH TAB PO PRN ×3 (00:41→22:21)
[2023-05-02 01:01] LABS: Glucose,Whole Blood 150 mg/dL (70-110)
--- NOTE | 2023-05-02 01:12 | P.CNPUL ---
History of Present Illness Consult date: 05/02/23 Requesting physician: Janet Adrian Reason for consult: other (ICU management) Chief complaint: Elective CABG History of present illness: I am seeing this patient in new consultation today 05/02/2023 in the intensive care unit status post operative day #1 for an elective coronary artery bypass g rafting 5 with a OSPINA to the diagonal branch and sequentially to the left anterior descending artery, radial artery from aorta to the ramus intermedius, saphenous vein graft from aorta sequential to the posterior descending artery and posteriolateral artery. Patient also had a left atrial appendage ligation. Patient is a 57-year-old white male with past medical history significant for CVA and patent PFO which was closed with Amplatzer Occluder in January,, coronary artery disease, hyperlipidemia. He is a never smoker. He did have a pulmonary function test preoperatively, which had poor patient effort. Based on the patient's best spirometry, he was at no increased operative risk. Po stoperatively, the patient was transferred to the intensive care unit intubated and on mechanical ventilator. On my evaluation, the patient was on pressure support of 5 and CPAP of 5 with an FiO2 of 50%. He is awake and alert and able to follow commands. Follow-up ABGs after 30 minutes on these settings show a PaO2 157, pCO2 of 37, pH of 7.4. Weaning parameters were all adequate with a positive cuff leak, RSBI 58, respiratory rate of 23, tidal volume 441, MV 9.5, and NIF -20, VC 5.79L. The patient was then extubated uneventfully to 4 L nasal cannula. He is comfortable without any respiratory distress. He appears neurologically intact without any focal deficits. Blood pressure and cardiac output/index are marginal with a blood pressure 80s over 40s and the last CO/CI of 4.6 and 2.2 respectively. PA pressures are 31/9, indicating some volume deficit. Patient has reportedly artery received 750 ML's of 5% albumin. He also received 2 L of crystalloid intraoperatively. Estimated blood loss was 1.8 L. Chest tube output has a total of 300 ML's of sanguinous drainage total from the mediastinal chest tube and 800 ML's of serosanguineous output from the right and left pleural chest tubes total. He has not required any blood product. Urine output is in order of 20 ML's per hour. Lactated Ringer's is infusing at 50 ML's per hour. He is requiring vasopressor support in the form of norepinephrine at 0.13 mcg/kg/m or approximately 13 mics per minute, vasopressin at physiological dose, and milrinone at 0.2 mcg/kg/m. Patient's nitroglycerin is currently on hold for hypotension. Patient does have a epicardial pacemaker and a backup of 60 bpm and settings of DDD. Intrinsic heart rhythm is normal sinus and heart rate is currently 96 bpm. Most recent CBC shows a WBC count of 18, hemoglobin 9.4, hematocrit 27.6, platelets 176. Most recent BMP shows a sodium 139, potassium 4.4, chloride 108, serum CO2 25, BUN 13, creatinine 0.74, glucose 98. LFTs are not elevated. Insulin is infusing at 4.5 units per hour per protocol. Patient will be monitored in intensive care unit. Review of Systems REVIEW OF SYSTEMS: CONSTITUTIONAL: Denies any recent significant weight loss or weight gain. EYES: Denies change in vision. EARS, NOSE, MOUTH, THROAT: Denies headaches, denies sore throat. CARDIOVASCULAR: Denies chest pain, palpitations or syncopal episodes. RESPIRATORY: Denies shortness of breath, cough, congestion or hemoptysis. GASTROINTESTINAL: Denies change in appetite, abdominal pain, nausea and vomiting, or diarrhea GENITOURINARY: Denies hematuria, denies infections. MUSKULOSKELETAL: Denies pain, denies swelling. INTEGUMENTARY: Denies rash, denies eczema. NEUROLOGICAL: Denies recent memory loss, no recent seizure activity. PSYCHIATRIC: Denies anxiety, denies depression. HEMATOLOGIC/LYMPHATIC: Denies anemia, denies enlarged lymph node Past Medical History Past Medical History: Coronary Artery Disease (CAD), CVA/TIA, Hyperlipidemia Additional Past Medical History / Comment(s): 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 recent abnormal stress test History of Any Multi-Drug Resistant Organisms: None Reported Past Surgical History: Heart Catheterization Additional Past Surgical History / Comment(s): PFO closure with amplatzer occluder 02/14/23 Past Anesthesia/Blood Transfusion Reactions: No Reported Reaction Additional Past Anesthesia/Blood Transfusion Reaction / Comment(s): no hx blood transfusion Type of Cardiac Device: Loop Smoking Status: Never smoker - Past Family History Father Family Medical History: No Reported History Additional Family Medical History / Comment(s): after gall bladder surgery Mother Family Medical History: No Reported History Medications and Allergies Home Medications Medication Instructions Recorded Confirmed Type Atorvastatin [Lipitor] 80 mg PO HS 01/11/23 04/25/23 History Clopidogrel [Plavix] 75 mg PO HS 01/11/23 04/25/23 History Allergies Allergy/AdvReac Type Severity Reaction Status Date / Time No Known Allergies Allergy Verified 05/01/23 06:13 Physical Exam Vitals: Vital Signs Temp Pulse Pulse Pulse Resp BP BP 05/01/23 23:45 105 H 12 87/46 05/01/23 23:30 106 H 21 05/01/23 23:15 107 H 21 87/46 05/01/23 23:00 106 H 12 05/01/23 22:45 120 H 20 05/01/23 22:31 05/01/23 22:30 112 H 22 05/01/23 22:15 120 H 23 86/53 05/01/23 22:00 120 H 24 05/01/23 21:45 116 H 25 H 05/01/23 21:41 05/01/23 21:30 107 H 22 05/01/23 21:16 105 H 25 H 78/59 05/01/23 21:00 110 H 23 05/01/23 20:45 108 H 25 H 05/01/23 20:30 110 H 23 05/01/23 20:29 105 H 05/01/23 20:24 05/01/23 20:15 101 H 24 81/55 05/01/23 20:00 99.9 F H 105 H 23 05/01/23 19:45 108 H 24 05/01/23 19:30 111 H 29 H 05/01/23 19:15 101 H 25 H 85/57 05/01/23 19:00 99.5 F 103 H 25 H 83/58 05/01/23 18:45 103 H 21 79/59 05/01/23 18:30 113 H 26 H 05/01/23 18:15 110 H 26 H 05/01/23 18:00 99.3 F 106 H 26 H 05/01/23 17:45 105 H 28 H 05/01/23 17:30 104 H 28 H 05/01/23 17:15 101 H 25 H 05/01/23 17:00 98.6 F 93 15 05/01/23 16:55 96 05/01/23 16:48 05/01/23 16:45 93 25 H 05/01/23 16:30 92 21 05/01/23 16:15 88 24 05/01/23 16:00 97.5 F L 88 18 05/01/23 15:45 85 18 05/01/23 15:30 97.5 F L 82 17 05/01/23 06:13 97.7 F 81 82 16 127/81 BP Pulse Ox FiO2 05/01/23 23:45 96 05/01/23 23:30 92 L 05/01/23 23:15 96 05/01/23 23:00 96 05/01/23 22:45 96 05/01/23 22:31 97 05/01/23 22:30 96 05/01/23 22:15 98 50 05/01/23 22:00 98 50 05/01/23 21:45 98 50 05/01/23 21:41 50 05/01/23 21:30 98 05/01/23 21:16 98 50 05/01/23 21:00 97 50 05/01/23 20:45 97 50 05/01/23 20:30 98 50 05/01/23 20:29 05/01/23 20:24 50 05/01/23 20:15 99 50 05/01/23 20:00 99 50 05/01/23 19:45 99 50 05/01/23 19:30 98 50 05/01/23 19:15 99 50 05/01/23 19:00 98 05/01/23 18:45 98 05/01/23 18:30 98 05/01/23 18:15 98 05/01/23 18:00 98 05/01/23 17:45 97 05/01/23 17:30 98 05/01/23 17:15 96 05/01/23 17:00 98 05/01/23 16:55 05/01/23 16:48 50 05/01/23 16:45 99 05/01/23 16:30 97 05/01/23 16:15 98 05/01/23 16:00 98 100 05/01/23 15:45 98 05/01/23 15:30 98 100 05/01/23 06:13 134/82 96 Intake and Output 05/01/23 05/01/23 05/02/23 14:59 22:59 06:59 Intake Total 54 1573.255 58.767 Output Total 2450 1593 108 Balance -2396 -19.745 -49.233 Intake: IV 54 210 30 cardiac output ns 210 30 Intake, IV Titration 1363.255 28.767 Amount ACETAMINOPHEN IV (For NPO 100 ) 1,000 mg In Empty Bag 1 bag @ 400 mls/hr IVPB Q6HR [facility] Rx#:[id number] Albumin Human 5% 250 ml 250 In Empty Bag 1 bag @ 250 mls/hr IVPB ONCE ONE Rx#: [id number] Albumin Human 5% 250 ml 500 In Empty Bag 1 bag @ 250 mls/hr IVPB Q1HR PRN Rx#: [id number] Dexmedetomidine/0.9% NaCl 15.795 (Pmx) 400 mcg In Empty Bag 1 bag @ Titrate IV . Q0M [facility] Rx#:[id number] Insulin Regular 100 unit 15.697 5.378 In Sodium Chloride 0.9% 100 ml @ Per Protocol IV .Q0M [facility] Rx#:[id number] Lactated Ringers 1,000 ml 200 @ 50 mls/hr IV .Q20H [facility] Rx#:[id number] Milrinone-D5w Pmx 20 mg 11.6 In Dextrose/Water 1 100ml .bag @ 0.2 MCG/KG/MIN 5. 862 mls/hr IV .Q17H4M [facility] Rx#:[id number] Norepinephrine 4 mg In 162.667 23.389 Sodium Chloride 0.9% 250 ml @ 0.02 MCG/KG/MIN 7. 445 mls/hr IV .Q24H [facility] Rx#:[id number] ceFAZolin 2 gm In Sodium 50 Chloride 0.9% 50 ml @ 100 mls/hr IVPB Q8HR [facility] Rx# :[id number] propofoL 1,000 mg In 57.496 Empty Bag 1 bag @ Titrate IV .Q0M [facility] Rx#: [id number] Output: Chest Tube Drainage [address] 290 20 Rt pleural Lt pleural CT 740 60 Drainage 0 Left Arm 0 Urine 650 563 28 Estimated Blood Loss 1800 Other: Voiding Method Indwelling Catheter ABP, PAP, CO, CI - Last 8 Hours Arterial Blood Pressure 104/55 Arterial Blood Pressure 99/50 Arterial Blood Pressure 95/53 Arterial Blood Pressure 91/52 Arterial Blood Pressure 75/45 Arterial Blood Pressure 79/48 Arterial Blood Pressure 85/43 Arterial Blood Pressure 86/51 Arterial Blood Pressure 70/41 Arterial Blood Pressure 85/53 Arterial Blood Pressure 81/52 Arterial Blood Pressure 78/51 Arterial Blood Pressure 71/45 Arterial Blood Pressure 74/49 Arterial Blood Pressure 80/51 Arterial Blood Pressure 83/55 Arterial Blood Pressure 79/52 Arterial Blood Pressure 95/60 Arterial Blood Pressure 88/55 Arterial Blood Pressure 94/57 Arterial Blood Pressure 85/52 Arterial Blood Pressure 90/54 Arterial Blood Pressure 92/57 Arterial Blood Pressure 93/56 Arterial Blood Pressure 97/56 Arterial Blood Pressure 98/59 Arterial Blood Pressure 105/66 Arterial Blood Pressure 99/64 Arterial Blood Pressure 108/67 Arterial Blood Pressure 94/59 Pulmonary Artery Pressure 30/10 Pulmonary Artery Pressure 31/12 Pulmonary Artery Pressure 29/11 Pulmonary Artery Pressure 28/12 Pulmonary Artery Pressure 29/12 Pulmonary Artery Pressure 29/15 Pulmonary Artery Pressure 31/14 Pulmonary Artery Pressure 35/16 Pulmonary Artery Pressure 31/12 Pulmonary Artery Pressure 32/19 Pulmonary Artery Pressure 27/14 Pulmonary Artery Pressure 25/15 Pulmonary Artery Pressure 30/16 Pulmonary Artery Pressure 35/17 Pulmonary Artery Pressure 28/15 Pulmonary Artery Pressure 29/16 Pulmonary Artery Pressure 28/17 Pulmonary Artery Pressure 33/16 Pulmonary Artery Pressure 33/17 Pulmonary Artery Pressure 29/15 Pulmonary Artery Pressure 30/15 Pulmonary Artery Pressure 33/18 Pulmonary Artery Pressure 32/21 Pulmonary Artery Pressure 37/23 Pulmonary Artery Pressure 36/17 Pulmonary Artery Pressure 40/20 Pulmonary Artery Pressure 35/21 Pulmonary Artery Pressure 38/23 Pulmonary Artery Pressure 38/25 Pulmonary Artery Pressure 37/22 Cardiac Output 4.7 Cardiac Output 4.6 Cardiac Output 4.6 Cardiac Output 4.5 Cardiac Output 4.5 Cardiac Output 4.8 Cardiac Output 4.4 Cardiac Output 5.8 Cardiac Output 3.9 Cardiac Index 2.2 Cardiac Index 2.2 Cardiac Index 2.2 Cardiac Index 2.2 Cardiac Index 2.2 Cardiac Index 2.3 Cardiac Index 2.1 Cardiac Index 2.8 Cardiac Index 1.9 GENERAL EXAM: Alert, 57-year-old white male, comfortable in no apparent distress. HEAD: Normocephalic and atraumatic EYES: Normal reaction of pupils, equal size. NOSE: Clear with pink turbinates. THROAT: No erythema or exudates. NECK: No masses, no JVD. There is a right-sided introducer sheath with [place]- [place] catheter coursing through the right internal jugular vein CHEST: No chest wall deformity or crepitus. There is a midline sternal incision which is approximated. Chest tubes are in place LUNGS: Equal air entry with no crackles, wheeze, rhonchi or dullness. On 4 L nasal cannula. No conversational dyspnea or accessory muscle use.. CVS: S1 and S2 normal with no audible murmur, regular rhythm. There is a faint pericardial friction rub. ABDOMEN: No hepatosplenomegaly, hypoactive bowel sounds, no guarding or rigidity. SPINE: No scoliosis or deformity SKIN: No rashes CENTRAL NERVOUS SYSTEM: No focal deficits, tone is normal in all 4 extremities. EXTREMITIES: There is no peripheral edema, clubbing, or cyanosis. Peripheral pulses are intact. Bilateral lower extremities are dressed and compression bandages. Left radial harvest site is clean, dry, approximated. Results - Laboratory Findings CBC and BMP: 05/01/23 19:58 05/01/23 15:30 ABG ABG pH 7.40 (7.35-7.45) 05/01/23 22:08 ABG pCO2 37 mmHg (35-45) 05/01/23 22:08 ABG pO2 157 mmHg (83-108) H 05/01/23 22:08 ABG O2 Saturation 100.0 % (94-97) H 05/01/23 22:08 PT/INR, D-dimer PT 11.4 sec (9.0-12.0) 05/01/23 19:58 INR 1.1 (<1.2) 05/01/23 19:58 Abnormal lab findings: Abnormal Labs 04/24/23 05/01/23 05/01/23 16:00 06:25 08:16 WBC RBC Hgb Hct Neutrophils # Lymphocytes # Monocytes # APTT ABG pH ABG pCO2 ABG pO2 333 H ABG Total CO2 26 H ABG O2 Saturation 99.3 H ABG Hematocrit ABG Sodium ABG Potassium 4.8 H ABG Ionized Calcium ABG Glucose 127 H ABG Lactic Acid Hemoglobin Chloride POC Glucose (mg/dL) 136 H Calcium Magnesium Total Protein Albumin Arterial Blood Potassium 4.8 H Arterial Blood Glucose 127 H Crossmatch See Detail 05/01/23 05/01/23 05/01/23 10:13 10:45 11:21 WBC RBC Hgb Hct Neutrophils # Lymphocytes # Monocytes # APTT ABG pH 7.34 L ABG pCO2 ABG pO2 207 H 353 H 378 H ABG Total CO2 26 H ABG O2 Saturation 99.0 H 99.5 H 99.7 H ABG Hematocrit 30 L 28 L ABG Sodium 132 L ABG Potassium 5.7 H 4.7 H ABG Ionized Calcium 4.1 L 4.2 L ABG Glucose 192 H 155 H 142 H ABG Lactic Acid 1.8 H Hemoglobin 12.5 L 9.8 L 9.2 L Chloride POC Glucose (mg/dL) Calcium Magnesium Total Protein Albumin Arterial Blood Potassium 5.7 H 4.7 H Arterial Blood Glucose 192 H 155 H 142 H Crossmatch 05/01/23 05/01/23 05/01/23 11:53 12:51 13:21 WBC RBC Hgb Hct Neutrophils # Lymphocytes # Monocytes # APTT ABG pH ABG pCO2 ABG pO2 350 H 351 H 335 H ABG Total CO2 26 H 27 H 26 H ABG O2 Saturation 99.5 H 99.4 H 99.5 H ABG Hematocrit 27 L 27 L 26 L ABG Sodium ABG Potassium ABG Ionized Calcium 4.1 L 4.2 L 4.2 L ABG Glucose 136 H 142 H 178 H ABG Lactic Acid 1.9 H 2.1 H 1.9 H Hemoglobin 8.9 L 8.8 L 8.6 L Chloride POC Glucose (mg/dL) Calcium Magnesium Total Protein Albumin Arterial Blood Potassium Arterial Blood Glucose 136 H 142 H 178 H Crossmatch 05/01/23 05/01/23 05/01/23 13:51 14:42 15:30 WBC RBC Hgb Hct Neutrophils # Lymphocytes # Monocytes # APTT ABG pH 7.31 L 7.32 L ABG pCO2 49 H 49 H ABG pO2 336 H 133 H ABG Total CO2 26 H 27 H ABG O2 Saturation 99.4 H 98.2 H ABG Hematocrit 26 L 31 L ABG Sodium ABG Potassium ABG Ionized Calcium 4.2 L ABG Glucose 169 H 126 H ABG Lactic Acid 2.6 H* 2.5 H* Hemoglobin 8.4 L 10.2 L Chloride POC Glucose (mg/dL) 111 H Calcium Magnesium Total Protein Albumin Arterial Blood Potassium Arterial Blood Glucose 169 H 126 H Crossmatch 05/01/23 05/01/23 05/01/23 15:30 15:30 15:52 WBC 24.5 H RBC 3.84 L Hgb 11.4 L Hct 34.0 L Neutrophils # 22.3 H Lymphocytes # 0.8 L Monocytes # 1.3 H APTT ABG pH ABG pCO2 ABG pO2 246 H ABG Total CO2 26 H ABG O2 Saturation 100.0 H ABG Hematocrit ABG Sodium ABG Potassium ABG Ionized Calcium ABG Glucose ABG Lactic Acid Hemoglobin Chloride 108 H POC Glucose (mg/dL) Calcium 7.8 L Magnesium 2.7 H Total Protein 5.1 L Albumin 2.9 L Arterial Blood Potassium Arterial Blood Glucose Crossmatch 05/01/23 05/01/23 05/01/23 16:35 17:36 18:40 WBC 20.6 H RBC 3.39 L Hgb 10.1 L Hct 29.8 L Neutrophils # 19.0 H Lymphocytes # 0.4 L Monocytes # 1.1 H APTT ABG pH ABG pCO2 ABG pO2 ABG Total CO2 ABG O2 Saturation ABG Hematocrit ABG Sodium ABG Potassium ABG Ionized Calcium ABG Glucose ABG Lactic Acid Hemoglobin Chloride POC Glucose (mg/dL) 148 H 176 H Calcium Magnesium Total Protein Albumin Arterial Blood Potassium Arterial Blood Glucose Crossmatch 05/01/23 05/01/23 05/01/23 19:09 19:46 19:58 WBC RBC Hgb Hct Neutrophils # Lymphocytes # Monocytes # APTT 33.3 H ABG pH ABG pCO2 ABG pO2 ABG Total CO2 ABG O2 Saturation ABG Hematocrit ABG Sodium ABG Potassium ABG Ionized Calcium ABG Glucose ABG Lactic Acid Hemoglobin Chloride POC Glucose (mg/dL) 160 H 175 H Calcium Magnesium Total Protein Albumin Arterial Blood Potassium Arterial Blood Glucose Crossmatch 05/01/23 05/01/23 05/01/23 19:58 21:23 22:08 WBC 18.0 H RBC 3.13 L Hgb 9.4 L Hct 27.6 L Neutrophils # 16.6 H Lymphocytes # 0.4 L Monocytes # APTT ABG pH ABG pCO2 ABG pO2 157 H ABG Total CO2 ABG O2 Saturation 100.0 H ABG Hematocrit ABG Sodium ABG Potassium ABG Ionized Calcium ABG Glucose ABG Lactic Acid Hemoglobin Chloride POC Glucose (mg/dL) 185 H Calcium Magnesium Total Protein Albumin Arterial Blood Potassium Arterial Blood Glucose Crossmatch 05/01/23 05/01/23 22:08 23:21 WBC RBC Hgb Hct Neutrophils # Lymphocytes # Monocytes # APTT ABG pH ABG pCO2 ABG pO2 ABG Total CO2 ABG O2 Saturation ABG Hematocrit ABG Sodium ABG Potassium ABG Ionized Calcium ABG Glucose ABG Lactic Acid Hemoglobin Chloride POC Glucose (mg/dL) 173 H 167 H Calcium Magnesium Total Protein Albumin Arterial Blood Potassium Arterial Blood Glucose Crossmatch - Diagnostic Findings Chest x-ray: image reviewed Assessment and Plan Assessment: Post operative day #1 for an elective coronary artery bypass grafting 5 with a OSPINA to the diagonal branch and sequentially to the left anterior descending artery, radial artery from aorta to the ramus intermedius, saphenous vein graft from aorta sequential to the posterior descending artery and posteriolateral artery. Patient also had a left atrial appendage ligation. CO/CIs are marginal but adequate on milrinone infusion. Acute hypoxemic respiratory failure, was successfully extubated from mechanical ventilator to 4 L nasal cannula. Hypotension, requiring vasopressor support in the form of norepinephrine and vasopressin infusions Acute blood loss anemia, expected outcome surgery Leukocytosis, secondary to above Coronary artery disease History of CVA and patent dor[place] ovale status post closure with Amplatzer Occluder in January, Hyperlipidemia Plan: Patient's medications, labs, chest x-ray were reviewed Patient was extubated successfully to 4 L nasal cannula Continue supplemental oxygen and maintain oxygen saturation of 92% or greater Continue hemodynamic support in the form of norepinephrine, vasopressin, and m ilrinone infusions. Would recommend an additional dose of 5% albumin, PA diastolic was low at 9 Monitor chest tube output Repeat chest x-ray in the morning Encourage incentive spirometer Insulin infusion per protocol Heparin for DVT prophylaxis Protonix for GI prophylaxis Pain appears adequately managed We will continue to follow I have personally seen and examined the patient, performed the documentation and the assessment and plan as written. Number of minutes spent on the visit:20 Time with Patient: Greater than 30
[2023-05-02 02:08] LABS: Glucose,Whole Blood 138 mg/dL (70-110)
[2023-05-02 02:56] LABS: Glucose,Whole Blood 127 mg/dL (70-110)
[2023-05-02 04:07] LABS: Glucose,Whole Blood 112 mg/dL (70-110)
[2023-05-02 04:24] LABS: Basophils % (A) 0 %; Eosinophils % (A) 0 %; HCT 22.6 % (39.0-53.0); Lymphocytes # (A) 0.6 k/uL (1.0-4.8); Lymphocytes % (A) 6 %; MCH 29.9 pg (25.0-35.0); MCHC 33.9 g/dL (31.0-37.0); MCV 88.2 fL (80.0-100.0); Mean Platelet Volume 9.3; Monocytes # (A) 0.8 k/uL (0-1.0); Monocytes % (A) 7 %; Neutrophils # (A) 9.1 k/uL (1.3-7.7); Neutrophils % (A) 86 %; Platelet Count 130 k/uL (150-450); RBC 2.56 m/uL (4.30-5.90); RDW 12.6 % (11.5-15.5); WBC 10.6 k/uL (3.8-10.6)
[2023-05-02 04:33] LABS: Ionized Calcium 4.7 mg/dL (4.5-5.3)
[2023-05-02 04:39] LABS: ALT 22 U/L (4-49); AST 51 U/L (17-59); African American GFR (CKD) >90 (>60 ml/min/1.73 sqM); Albumin 3.1 g/dL (3.5-5.0); Alkaline Phosphatase 46 U/L (38-126); Anion Gap 5 mmol/L; Blood Urea Nitrogen 15 mg/dL (9-20); Calcium 7.7 mg/dL (8.4-10.2); Carbon Dioxide 25 mmol/L (22-30); Chloride 107 mmol/L (98-107); Glucose 99 mg/dL (74-99); Magnesium 2.2 mg/dL (1.6-2.3); Non-African American GFR(CKD) >90 (>60 ml/min/1.73 sqM); Potassium 4.4 mmol/L (3.5-5.1); Sodium 137 mmol/L (137-145); Total Bilirubin 1.1 mg/dL (0.2-1.3); Total Protein 5.1 g/dL (6.3-8.2)
[2023-05-02 04:47] LABS: HGB 7.7 gm/dL (13.0-17.5)
[2023-05-02 05:09] LABS: Glucose,Whole Blood 156 mg/dL (70-110)
[2023-05-02 06:14] LABS: Glucose,Whole Blood 197 mg/dL (70-110)
[2023-05-02] MEDS: ALBUMIN HUMAN 5% 250 ML in EMPTY BAG 1 BAG IVPB PRN (06:36)
[2023-05-02] MEDS ORDERED: ACETAMINOPHEN TAB 325 MG TAB PO PRN (06:53)
[2023-05-02 07:04] LABS: Glucose,Whole Blood 190 mg/dL (70-110)
[2023-05-02] MEDS: FERROUS SULFATE 325 MG TAB PO SCH ×2 (07:21→16:21)
[2023-05-02] MEDS: ASCORBIC ACID 500 MG TAB PO SCH ×2 (07:22→16:21)
[2023-05-02 08:08] LABS: Glucose,Whole Blood 151 mg/dL (70-110)
--- NOTE | 2023-05-02 08:16 | P.PN ---
Subjective Progress Note Date: 05/02/23 Principal diagnosis: Triple-vessel coronary artery disease. History of recent CVA without residual effect, PFO status post closure in January 2023, hyperlipidemia, daily EtOH use, n ever smoker POD #1 coronary artery bypass grafting 5, left internal mammary artery sequential to the first diagonal branch then left anterior descending artery, left radial artery from the aorta to the ramus intermedius, reverse saphenous vein graft from the aorta sequentially to the posterior descending artery and posterior lateral branch of the right coronary artery, endoscopic left radial and left greater saphenous vein harvest, left atrial appendage ligation with a 35 mm AtriClip, intraoperative transesophageal echocardiogram performed by anesthesia, graft flow measurements using the Sparkbuystim Postoperative acute blood loss anemia and thrombocytopenia, expected given hemodilution and cardiopulmonary bypass pump Hypotension, currently on pressors The patient was seen and examined this morning sitting up in a recliner in no acute distress although he does complain of postsurgical pain with deep inspiration and coughing. He was successfully extubated last night at 22:25. Currently in sinus tach with heart rate in the low 100s, blood pressure soft on IV levo, vaso-, Primacor. Patient has had approximately 1.5 L output from his 3 chest tubes, and has received approximately 1.5 L of albumin since surgery. Urine output stable this time. Chest x-ray, lab work reviewed. Right internal jugular [place]/Cordis, mediastinal/left/right pleural chest tubes, right radial arterial line, left radial SEGUNDO drain all remain. Objective - Vital Signs Vital signs: Vital Signs Temp 99.7 F H 05/02/23 04:00 Pulse 107 H 05/02/23 04:15 Resp 15 05/02/23 04:15 BP 100/62 05/02/23 04:15 Pulse Ox 97 05/02/23 04:15 FiO2 50 05/01/23 22:15 Intake & Output 05/01/23 05/01/23 05/02/23 06:59 18:59 06:59 Intake Total 8542.865 6429.414 Output Total 3420 1536 Balance -2370.318 109.414 Weight 97.7 kg Intake: IV 154 900 ACETAMINOPHEN IV (For NPO 100 ) 1,000 mg In Empty Bag 1 bag @ 400 mls/hr IVPB Q6HR [facility] Rx#:[id number] Lactated Ringers 1,000 ml 550 @ 50 mls/hr IV .Q20H [facility] Rx#:[id number] cardiac output ns 100 200 ceFAZolin 2 gm In Sodium 50 Chloride 0.9% 50 ml @ 100 mls/hr IVPB Q8HR [facility] Rx# :[id number] Intake, IV Titration 895.682 745.414 Amount ACETAMINOPHEN IV (For NPO 100 ) 1,000 mg In Empty Bag 1 bag @ 400 mls/hr IVPB Q6HR [facility] Rx#:[id number] Albumin Human 5% 250 ml 250 In Empty Bag 1 bag @ 250 mls/hr IVPB ONCE ONE Rx#: [id number] Albumin Human 5% 250 ml 500 In Empty Bag 1 bag @ 250 mls/hr IVPB Q1HR [facility]N Rx#: [id number] Dexmedetomidine/0.9% NaCl 35.378 (Pmx) 400 mcg In Empty Bag 1 bag @ Titrate IV . Q0M [facility] Rx#:[id number] Insulin Regular 100 unit 0.808 51.400 In Sodium Chloride 0.9% 100 ml @ Per Protocol IV .Q0M [facility] Rx#:[id number] Lactated Ringers 1,000 ml 150 50 @ 50 mls/hr IV .Q20H [facility] Rx#:[id number] Milrinone-D5w Pmx 20 mg 5.8 59.633 In Dextrose/Water 1 100ml .bag @ 0.2 MCG/KG/MIN 5. 862 mls/hr IV .Q17H4M [facility] Rx#:[id number] Nitroglycerin-D5w Pmx 50 8.225 mg In Dextrose/Water 1 250ml.bag @ 5 MCG/MIN 1.5 mls/hr IV .Q24H [facility] Rx#: [id number] Norepinephrine 4 mg In 31.578 290.778 Sodium Chloride 0.9% 250 ml @ 0.02 MCG/KG/MIN 7. 445 mls/hr IV .Q24H [facility] Rx#:[id number] ceFAZolin 2 gm In Sodium 50 Chloride 0.9% 50 ml @ 100 mls/hr IVPB Q8HR [facility] Rx# :[id number] propofoL 1,000 mg In 57.496 Empty Bag 1 bag @ Titrate IV .Q0M [facility] Rx#: [id number] Output: Chest Tube Drainage [address] 140 240 Rt pleural Lt pleural CT 370 710 Gastric Drainage 125 Drainage 0 Left Arm 0 Urine 1110 461 Estimated Blood Loss 1800 Other: Voiding Method Indwelling Catheter Indwelling Catheter ABP, PAP, CO, CI - Last Documented Arterial Blood Pressure 111/60 Pulmonary Artery Pressure 35/16 Cardiac Output 6.5 Cardiac Index 3.1 - Exam CONSTITUTIONAL: Appears somewhat comfortable, cooperative, no acute distress RESPIRATORY: Lungs sounds diminished bilaterally. Respirations even, nonlabored. Currently on 3 L nasal cannula with oxygen saturation 97%. Able to achieve 750 mL on incentive spirometry. Weak cough. CARDIOVASCULAR: S1, S2 present. Tachy but regular rate and rhythm, sinus tach on telemetry. Sternum stable. Palpable peripheral pulses bilaterally. No ed jessika present. No calf pain or tenderness noted. Heart hugger in place with patient demonstrating appropriate use. Antiembolism stockings, SCDs present. GASTROINTESTINAL: Abdomen soft, nontender, nondistended. Hypoactive bowel sounds present 4 quadrants. Tolerating minimal clear liquids. Denies flatus GENITOURINARY: Hutton present draining clear, yellow urine. Output overnight 20-75 mL per hour INTEGUMENTARY: Skin is warm and dry with evidence of good perfusion. Anterior chest incision well approximated and covered with dry intact dressing. Left radial artery harvest site as well as left lower extremity EVH site well approximated without redness NEUROLOGIC: Cranial nerves II through XII intact MUSKULOSKELETAL: Able to move all extremities, strength equal bilaterally PSYCHIATRIC: Alert and oriented to person place and time, appropriate affect, intact judgment and insight INVASIVE LINES AND TUBES: Mediastinal/left/right pleural chest tubes present and connected to wall suction, no air leaks present. Mediastinal tube with 80 mL serosanguineous drainage overnight, 380 mL since surgery. Left/right pleural chest tubes with 340 mL sanguineous drainage overnight, 1150 mL since surgery. A/V epicardial pacemaker wires present, connected to generator, generator off. Right internal jugular [place]ordis, right radial arterial line present. Last CO/CI 6.5/3.1, PA 34/12, CVP 9. - Labs CBC & Chem 7: 05/02/23 04:05 05/02/23 04:05 Labs: Abnormal Lab Results - Last 24 Hours (Table) 04/24/23 05/01/23 05/01/23 Range/Units 16:00 08:16 10:13 WBC (3.8-10.6) k/uL RBC (4.30-5.90) m/uL Hgb (13.0-17.5) gm/dL Hct (39.0-53.0) % Plt Count (150-450) k/uL Neutrophils # (1.3-7.7) k/uL Lymphocytes # (1.0-4.8) k/uL Monocytes # (0-1.0) k/uL APTT (22.0-30.0) sec ABG pH (7.35-7.45) ABG pCO2 (35-45) mmHg ABG pO2 333 H 207 H (83-108) mmHg ABG Total CO2 26 H (19-24) mmol/L ABG O2 Saturation 99.3 H 99.0 H (94-97) % ABG Hematocrit (34.0-46.0) % ABG Sodium (135-146) mmol/L ABG Potassium 4.8 H 5.7 H (3.4-4.5) mmol/L ABG Ionized Calcium (4.5-5.3) mg/dL ABG Glucose 127 H 192 H (75-99) mg/dL ABG Lactic Acid (0.5-1.6) mmol/L Hemoglobin 12.5 L (13.0-17.5) gm/dL Chloride (98-107) mmol/L POC Glucose (mg/dL) (70-110) mg/dL Calcium (8.4-10.2) mg/dL Magnesium (1.6-2.3) mg/dL Total Protein (6.3-8.2) g/dL Albumin (3.5-5.0) g/dL Arterial Blood Potassium 4.8 H 5.7 H (3.4-4.5) mmol/L Arterial Blood Glucose 127 H 192 H (75-99) mg/dL Crossmatch See Detail 05/01/23 05/01/23 05/01/23 Range/Units 10:45 11:21 11:53 WBC (3.8-10.6) k/uL RBC (4.30-5.90) m/uL Hgb (13.0-17.5) gm/dL Hct (39.0-53.0) % Plt Count (150-450) k/uL Neutrophils # (1.3-7.7) k/uL Lymphocytes # (1.0-4.8) k/uL Monocytes # (0-1.0) k/uL APTT (22.0-30.0) sec ABG pH 7.34 L (7.35-7.45) ABG pCO2 (35-45) mmHg ABG pO2 353 H 378 H 350 H (83-108) mmHg ABG Total CO2 26 H 26 H (19-24) mmol/L ABG O2 Saturation 99.5 H 99.7 H 99.5 H (94-97) % ABG Hematocrit 30 L 28 L 27 L (34.0-46.0) % ABG Sodium 132 L (135-146) mmol/L ABG Potassium 4.7 H (3.4-4.5) mmol/L ABG Ionized Calcium 4.1 L 4.2 L 4.1 L (4.5-5.3) mg/dL ABG Glucose 155 H 142 H 136 H (75-99) mg/dL ABG Lactic Acid 1.8 H 1.9 H (0.5-1.6) mmol/L Hemoglobin 9.8 L 9.2 L 8.9 L (13.0-17.5) gm/dL Chloride (98-107) mmol/L POC Glucose (mg/dL) (70-110) mg/dL Calcium (8.4-10.2) mg/dL Magnesium (1.6-2.3) mg/dL Total Protein (6.3-8.2) g/dL Albumin (3.5-5.0) g/dL Arterial Blood Potassium 4.7 H (3.4-4.5) mmol/L Arterial Blood Glucose 155 H 142 H 136 H (75-99) mg/dL Crossmatch 05/01/23 05/01/23 05/01/23 Range/Units 12:51 13:21 13:51 WBC (3.8-10.6) k/uL RBC (4.30-5.90) m/uL Hgb (13.0-17.5) gm/dL Hct (39.0-53.0) % Plt Count (150-450) k/uL Neutrophils # (1.3-7.7) k/uL Lymphocytes # (1.0-4.8) k/uL Monocytes # (0-1.0) k/uL APTT (22.0-30.0) sec ABG pH 7.31 L (7.35-7.45) ABG pCO2 49 H (35-45) mmHg ABG pO2 351 H 335 H 336 H (83-108) mmHg ABG Total CO2 27 H 26 H 26 H (19-24) mmol/L ABG O2 Saturation 99.4 H 99.5 H 99.4 H (94-97) % ABG Hematocrit 27 L 26 L 26 L (34.0-46.0) % ABG Sodium (135-146) mmol/L ABG Potassium (3.4-4.5) mmol/L ABG Ionized Calcium 4.2 L 4.2 L 4.2 L (4.5-5.3) mg/dL ABG Glucose 142 H 178 H 169 H (75-99) mg/dL ABG Lactic Acid 2.1 H 1.9 H 2.6 H* (0.5-1.6) mmol/L Hemoglobin 8.8 L 8.6 L 8.4 L (13.0-17.5) gm/dL Chloride (98-107) mmol/L POC Glucose (mg/dL) (70-110) mg/dL Calcium (8.4-10.2) mg/dL Magnesium (1.6-2.3) mg/dL Total Protein (6.3-8.2) g/dL Albumin (3.5-5.0) g/dL Arterial Blood Potassium (3.4-4.5) mmol/L Arterial Blood Glucose 142 H 178 H 169 H (75-99) mg/dL Crossmatch 05/01/23 05/01/23 05/01/23 Range/Units 14:42 15:30 15:30 WBC 24.5 H (3.8-10.6) k/uL RBC 3.84 L (4.30-5.90) m/uL Hgb 11.4 L (13.0-17.5) gm/dL Hct 34.0 L (39.0-53.0) % Plt Count (150-450) k/uL Neutrophils # 22.3 H (1.3-7.7) k/uL Lymphocytes # 0.8 L (1.0-4.8) k/uL Monocytes # 1.3 H (0-1.0) k/uL APTT (22.0-30.0) sec ABG pH 7.32 L (7.35-7.45) ABG pCO2 49 H (35-45) mmHg ABG pO2 133 H (83-108) mmHg ABG Total CO2 27 H (19-24) mmol/L ABG O2 Saturation 98.2 H (94-97) % ABG Hematocrit 31 L (34.0-46.0) % ABG Sodium (135-146) mmol/L ABG Potassium (3.4-4.5) mmol/L ABG Ionized Calcium (4.5-5.3) mg/dL ABG Glucose 126 H (75-99) mg/dL ABG Lactic Acid 2.5 H* (0.5-1.6) mmol/L Hemoglobin 10.2 L (13.0-17.5) gm/dL Chloride (98-107) mmol/L POC Glucose (mg/dL) 111 H (70-110) mg/dL Calcium (8.4-10.2) mg/dL Magnesium (1.6-2.3) mg/dL Total Protein (6.3-8.2) g/dL Albumin (3.5-5.0) g/dL Arterial Blood Potassium (3.4-4.5) mmol/L Arterial Blood Glucose 126 H (75-99) mg/dL Crossmatch 05/01/23 05/01/23 05/01/23 Range/Units 15:30 15:52 16:35 WBC (3.8-10.6) k/uL RBC (4.30-5.90) m/uL Hgb (13.0-17.5) gm/dL Hct (39.0-53.0) % Plt Count (150-450) k/uL Neutrophils # (1.3-7.7) k/uL Lymphocytes # (1.0-4.8) k/uL Monocytes # (0-1.0) k/uL APTT (22.0-30.0) sec ABG pH (7.35-7.45) ABG pCO2 (35-45) mmHg ABG pO2 246 H (83-108) mmHg ABG Total CO2 26 H (19-24) mmol/L ABG O2 Saturation 100.0 H (94-97) % ABG Hematocrit (34.0-46.0) % ABG Sodium (135-146) mmol/L ABG Potassium (3.4-4.5) mmol/L ABG Ionized Calcium (4.5-5.3) mg/dL ABG Glucose (75-99) mg/dL ABG Lactic Acid (0.5-1.6) mmol/L Hemoglobin (13.0-17.5) gm/dL Chloride 108 H (98-107) mmol/L POC Glucose (mg/dL) 148 H (70-110) mg/dL Calcium 7.8 L (8.4-10.2) mg/dL Magnesium 2.7 H (1.6-2.3) mg/dL Total Protein 5.1 L (6.3-8.2) g/dL Albumin 2.9 L (3.5-5.0) g/dL Arterial Blood Potassium (3.4-4.5) mmol/L Arterial Blood Glucose (75-99) mg/dL Crossmatch 05/01/23 05/01/23 05/01/23 Range/Units 17:36 18:40 19:09 WBC 20.6 H (3.8-10.6) k/uL RBC 3.39 L (4.30-5.90) m/uL Hgb 10.1 L (13.0-17.5) gm/dL Hct 29.8 L (39.0-53.0) % Plt Count (150-450) k/uL Neutrophils # 19.0 H (1.3-7.7) k/uL Lymphocytes # 0.4 L (1.0-4.8) k/uL Monocytes # 1.1 H (0-1.0) k/uL APTT (22.0-30.0) sec ABG pH (7.35-7.45) ABG pCO2 (35-45) mmHg ABG pO2 (83-108) mmHg ABG Total CO2 (19-24) mmol/L ABG O2 Saturation (94-97) % ABG Hematocrit (34.0-46.0) % ABG Sodium (135-146) mmol/L ABG Potassium (3.4-4.5) mmol/L ABG Ionized Calcium (4.5-5.3) mg/dL ABG Glucose (75-99) mg/dL ABG Lactic Acid (0.5-1.6) mmol/L Hemoglobin (13.0-17.5) gm/dL Chloride (98-107) mmol/L POC Glucose (mg/dL) 176 H 160 H (70-110) mg/dL Calcium (8.4-10.2) mg/dL Magnesium (1.6-2.3) mg/dL Total Protein (6.3-8.2) g/dL Albumin (3.5-5.0) g/dL Arterial Blood Potassium (3.4-4.5) mmol/L Arterial Blood Glucose (75-99) mg/dL Crossmatch 05/01/23 05/01/23 05/01/23 Range/Units 19:46 19:58 19:58 WBC 18.0 H (3.8-10.6) k/uL RBC 3.13 L (4.30-5.90) m/uL Hgb 9.4 L (13.0-17.5) gm/dL Hct 27.6 L (39.0-53.0) % Plt Count (150-450) k/uL Neutrophils # 16.6 H (1.3-7.7) k/uL Lymphocytes # 0.4 L (1.0-4.8) k/uL Monocytes # (0-1.0) k/uL APTT 33.3 H (22.0-30.0) sec ABG pH (7.35-7.45) ABG pCO2 (35-45) mmHg ABG pO2 (83-108) mmHg ABG Total CO2 (19-24) mmol/L ABG O2 Saturation (94-97) % ABG Hematocrit (34.0-46.0) % ABG Sodium (135-146) mmol/L ABG Potassium (3.4-4.5) mmol/L ABG Ionized Calcium (4.5-5.3) mg/dL ABG Glucose (75-99) mg/dL ABG Lactic Acid (0.5-1.6) mmol/L Hemoglobin (13.0-17.5) gm/dL Chloride (98-107) mmol/L POC Glucose (mg/dL) 175 H (70-110) mg/dL Calcium (8.4-10.2) mg/dL Magnesium (1.6-2.3) mg/dL Total Protein (6.3-8.2) g/dL Albumin (3.5-5.0) g/dL Arterial Blood Potassium (3.4-4.5) mmol/L Arterial Blood Glucose (75-99) mg/dL Crossmatch 05/01/23 05/01/23 05/01/23 Range/Units 21:23 22:08 22:08 WBC (3.8-10.6) k/uL RBC (4.30-5.90) m/uL Hgb (13.0-17.5) gm/dL Hct (39.0-53.0) % Plt Count (150-450) k/uL Neutrophils # (1.3-7.7) k/uL Lymphocytes # (1.0-4.8) k/uL Monocytes # (0-1.0) k/uL APTT (22.0-30.0) sec ABG pH (7.35-7.45) ABG pCO2 (35-45) mmHg ABG pO2 157 H (83-108) mmHg ABG Total CO2 (19-24) mmol/L ABG O2 Saturation 100.0 H (94-97) % ABG Hematocrit (34.0-46.0) % ABG Sodium (135-146) mmol/L ABG Potassium (3.4-4.5) mmol/L ABG Ionized Calcium (4.5-5.3) mg/dL ABG Glucose (75-99) mg/dL ABG Lactic Acid (0.5-1.6) mmol/L Hemoglobin (13.0-17.5) gm/dL Chloride (98-107) mmol/L POC Glucose (mg/dL) 185 H 173 H (70-110) mg/dL Calcium (8.4-10.2) mg/dL Magnesium (1.6-2.3) mg/dL Total Protein (6.3-8.2) g/dL Albumin (3.5-5.0) g/dL Arterial Blood Potassium (3.4-4.5) mmol/L Arterial Blood Glucose (75-99) mg/dL Crossmatch 05/01/23 05/02/2323 Range/Units 23:21 00:18 00:59 WBC (3.8-10.6) k/uL RBC (4.30-5.90) m/uL Hgb (13.0-17.5) gm/dL Hct (39.0-53.0) % Plt Count (150-450) k/uL Neutrophils # (1.3-7.7) k/uL Lymphocytes # (1.0-4.8) k/uL Monocytes # (0-1.0) k/uL APTT (22.0-30.0) sec ABG pH (7.35-7.45) ABG pCO2 (35-45) mmHg ABG pO2 (83-108) mmHg ABG Total CO2 (19-24) mmol/L ABG O2 Saturation (94-97) % ABG Hematocrit (34.0-46.0) % ABG Sodium (135-146) mmol/L ABG Potassium (3.4-4.5) mmol/L ABG Ionized Calcium (4.5-5.3) mg/dL ABG Glucose (75-99) mg/dL ABG Lactic Acid (0.5-1.6) mmol/L Hemoglobin (13.0-17.5) gm/dL Chloride (98-107) mmol/L POC Glucose (mg/dL) 167 H 156 H 150 H (70-110) mg/dL Calcium (8.4-10.2) mg/dL Magnesium (1.6-2.3) mg/dL Total Protein (6.3-8.2) g/dL Albumin (3.5-5.0) g/dL Arterial Blood Potassium (3.4-4.5) mmol/L Arterial Blood Glucose (75-99) mg/dL Crossmatch 05/02/23 05/02/23 05/02/23 Range/Units 02:06 02:55 04:05 WBC (3.8-10.6) k/uL RBC 2.56 L (4.30-5.90) m/uL Hgb 7.7 L D (13.0-17.5) gm/dL Hct 22.6 L (39.0-53.0) % Plt Count 130 L (150-450) k/uL Neutrophils # 9.1 H (1.3-7.7) k/uL Lymphocytes # 0.6 L (1.0-4.8) k/uL Monocytes # (0-1.0) k/uL APTT (22.0-30.0) sec ABG pH (7.35-7.45) ABG pCO2 (35-45) mmHg ABG pO2 (83-108) mmHg ABG Total CO2 (19-24) mmol/L ABG O2 Saturation (94-97) % ABG Hematocrit (34.0-46.0) % ABG Sodium (135-146) mmol/L ABG Potassium (3.4-4.5) mmol/L ABG Ionized Calcium (4.5-5.3) mg/dL ABG Glucose (75-99) mg/dL ABG Lactic Acid (0.5-1.6) mmol/L Hemoglobin (13.0-17.5) gm/dL Chloride (98-107) mmol/L POC Glucose (mg/dL) 138 H 127 H (70-110) mg/dL Calcium (8.4-10.2) mg/dL Magnesium (1.6-2.3) mg/dL Total Protein (6.3-8.2) g/dL Albumin (3.5-5.0) g/dL Arterial Blood Potassium (3.4-4.5) mmol/L Arterial Blood Glucose (75-99) mg/dL Crossmatch 05/02/23 05/02/23 05/02/23 Range/Units 04:05 04:05 05:06 WBC (3.8-10.6) k/uL RBC (4.30-5.90) m/uL Hgb (13.0-17.5) gm/dL Hct (39.0-53.0) % Plt Count (150-450) k/uL Neutrophils # (1.3-7.7) k/uL Lymphocytes # (1.0-4.8) k/uL Monocytes # (0-1.0) k/uL APTT (22.0-30.0) sec ABG pH (7.35-7.45) ABG pCO2 (35-45) mmHg ABG pO2 (83-108) mmHg ABG Total CO2 (19-24) mmol/L ABG O2 Saturation (94-97) % ABG Hematocrit (34.0-46.0) % ABG Sodium (135-146) mmol/L ABG Potassium (3.4-4.5) mmol/L ABG Ionized Calcium (4.5-5.3) mg/dL ABG Glucose (75-99) mg/dL ABG Lactic Acid (0.5-1.6) mmol/L Hemoglobin (13.0-17.5) gm/dL Chloride (98-107) mmol/L POC Glucose (mg/dL) 112 H 156 H (70-110) mg/dL Calcium 7.7 L (8.4-10.2) mg/dL Magnesium (1.6-2.3) mg/dL Total Protein 5.1 L (6.3-8.2) g/dL Albumin 3.1 L (3.5-5.0) g/dL Arterial Blood Potassium (3.4-4.5) mmol/L Arterial Blood Glucose (75-99) mg/dL Crossmatch 05/02/23 Range/Units 06:13 WBC (3.8-10.6) k/uL RBC (4.30-5.90) m/uL Hgb (13.0-17.5) gm/dL Hct (39.0-53.0) % Plt Count (150-450) k/uL Neutrophils # (1.3-7.7) k/uL Lymphocytes # (1.0-4.8) k/uL Monocytes # (0-1.0) k/uL APTT (22.0-30.0) sec ABG pH (7.35-7.45) ABG pCO2 (35-45) mmHg ABG pO2 (83-108) mmHg ABG Total CO2 (19-24) mmol/L ABG O2 Saturation (94-97) % ABG Hematocrit (34.0-46.0) % ABG Sodium (135-146) mmol/L ABG Potassium (3.4-4.5) mmol/L ABG Ionized Calcium (4.5-5.3) mg/dL ABG Glucose (75-99) mg/dL ABG Lactic Acid (0.5-1.6) mmol/L Hemoglobin (13.0-17.5) gm/dL Chloride (98-107) mmol/L POC Glucose (mg/dL) 197 H (70-110) mg/dL Calcium (8.4-10.2) mg/dL Magnesium (1.6-2.3) mg/dL Total Protein (6.3-8.2) g/dL Albumin (3.5-5.0) g/dL Arterial Blood Potassium (3.4-4.5) mmol/L Arterial Blood Glucose (75-99) mg/dL Crossmatch Assessment and Plan Assessment: Triple-vessel coronary artery disease, status post 5 vessel CABG History of recent CVA without residual effect PFO status post closure in January 2023 Hyperlipidemia, Daily EtOH use Never smoker Postoperative acute blood loss anemia and thrombocytopenia, expected Hypotension Plan: Continue to maximize medical therapy with aspirin, statin, plavix, beta emma. Will increase beta emma therapy when able Wean pressors as able, will give more albumin. Primacor DC'd Wean oxygen as tolerated. Encourage incentive spirometry 10x every hour while awake. Bronchodilators per pulmonology Increase activity, ambulate as tolerated. PT/OT/cardiac rehab consulted Will monitor daily labs and CXRs. Electrolyte replacement per protocol. Will obtain coags STAT GI/DVT prophylaxis Pain control with current medication regimen Insulin managment per internal medicine, patient is not diabetic, preoperative HgA1c 6% Will continue swan for now Continue chest tubes for another 24 hours, monitor output Continue hutton catheter for another 24 hours for strict accurate intake and output Daily weights Will discontinue SEGUNDO drain More recommendations to follow depending on patient's progress
[2023-05-02] MEDS: IPRATROPIUM-ALBUTEROL 3 ML NEB INHALATION SCH ×4 (08:26→19:35)
--- NOTE | 2023-05-02 08:28 | XR ---
EXAMINATION TYPE: XR chest 1V portable DATE OF EXAM: 05/02/2023 COMPARISON: 05/01/2023 HISTORY: ET tube TECHNIQUE: Single frontal view of the chest is obtained. FINDINGS: ET tube and NG tube have been removed. There is postoperative change with mediastinal drai n, [place] catheter and chest tubes stable in position. Bilateral consolidation and small effusion. Tiny less than 5%. Epicardial leads noted. Atrophic degenerative changes of the spine. IMPRESSION: 1. There is a tiny less than 5% right pneumothorax. Bilateral infiltrate and small effusion are stabl e.
[2023-05-02] MEDS: HYDROcodone/APAP 10-325MG 1 EACH TAB PO PRN ×3 (08:42→16:21)
[2023-05-02 08:49] LABS: INR 1.1 (<1.2); Partial Thromboplastin Time 22.9 sec (22.0-30.0); Prothrombin Time 11.2 sec (9.0-12.0)
[2023-05-02] MEDS ORDERED: PANTOPRAZOLE 40 MG/10 ML VIAL IVP SCH (09:00)
[2023-05-02] MEDS ORDERED: bisacodyL 10 MG SUPP RECTAL PRN (09:00)
[2023-05-02] MEDS ORDERED: MAGNESIUM HYDROXIDE 2,400 MG/10 ML CUP PO PRN (09:00)
[2023-05-02 09:05] LABS: Glucose,Whole Blood 140 mg/dL (70-110)
[2023-05-02] MEDS: CLOPIDOGREL 75 MG TAB PO SCH (09:20)
[2023-05-02] MEDS: PANTOPRAZOLE 40 MG/10 ML VIAL IVP SCH (09:20)
[2023-05-02] MEDS: ASPIRIN 325 MG TAB PO SCH (09:20)
[2023-05-02] MEDS: METOPROLOL TARTRATE 12.5 MG TAB PO SCH ×3 (09:20→21:02)
[2023-05-02 10:06] LABS: Glucose,Whole Blood 121 mg/dL (70-110)
[2023-05-02] MEDS: AMIODARONE 200 MG TAB PO SCH ×2 (10:14→16:21)
[2023-05-02 11:04] LABS: Glucose,Whole Blood 109 mg/dL (70-110)
--- NOTE | 2023-05-02 11:44 | P.PN ---
Subjective Progress Note Date: 05/02/23 Subjective: Patient seen and examined at bedside. No acute events overnight. He is on 3 L nasal cannula. Continues to have [address] and SEGUNDO drain. Also has a Crystal catheter in place. Pertinent positives and negatives as discussed above, a complete review of systems was performed and all other systems are negative. Vitals Signs Reviewed. General: nontoxic, no distress, appears at stated age Derm: warm, dry, dressing clean, dry, intact Head: atraumatic, normocephalic, symmetric Eyes: EOMI, no lid lag, anicteric sclera Mouth: no lip lesion, mucus membranes moist Cardiovascular: S1S2 reg, tachycardic, no murmur Lungs: CTA bilateral, no rhonchi, no rales , no accessory muscle use, supplemental oxygen Abdominal: soft, nontender to palpation, no guarding, no appreciable organomegaly Ext: no gross muscle atrophy, no edema, no contractures Neuro: CN II-XI grossly intact, no focal neuro deficits Psych: Alert, oriented, appropriate affect Data Reviewed Today: Pertinent Labs: WBC 10.6, hemoglobin 7.7, platelet 130, sodium 137, potassium 4.4, creatinine 0.89, magnesium 2.2, blood glucose range between 99-190 Imaging: Chest x-ray independently interpreted, shows poor inspiratory effort, bilateral pleural effusions, chest tubes in place, pulmonary vascular congestion Assessment and Plan: CAD status post CABG Postoperative hypotension, expected outcome Postoperative acute blood loss anemia, expected outcome Dyslipidemia History of TIA Sinus tachycardia Prediabetes, A1c 6.0 -Cardiothoracic surgery note reviewed, likely discontinue SEGUNDO drain today -Pulmonology note reviewed, continue supportive care, recommending albumin infusion if surgery agrees -Continue aspirin, Plavix, atorvastatin -Continue to wean norepinephrine, patient already off of vasopressin -Continue to monitor for any acute blood loss, CBC tomorrow -Also on IV amiodarone, being transitioned to oral amiodarone -Not requiring any IV insulin at the moment, we'll transition to sliding scale insulin once oral intake improves -Continue to monitor sugars -DVT prophylaxis and pain management per surgery Thank you for allowing us to participate in the care of this pleasant patient. Do not hesitate to contact us with questions. Someone can be reached from the [facility] hospitalist group all hours of the day at [phone] or via perfect serve. Objective - Vital Signs Vital signs: Vital Signs Temp 99.3 F 05/02/23 08:00 Pulse 109 H 05/02/23 11:15 Resp 13 05/02/23 11:15 BP 109/70 05/02/23 11:15 Pulse Ox 96 05/02/23 11:15 FiO2 50 05/01/23 22:15 Intake & Output 05/01/23 05/02/23 05/02/23 18:59 06:59 18:59 Intake Total 6111.487 9290.179 394.185 Output Total 3420 1536 415 Balance -2370.318 154.179 -20.815 Weight 95.6 kg Intake: IV 154 930 310 ACETAMINOPHEN IV (For NPO 100 ) 1,000 mg In Empty Bag 1 bag @ 400 mls/hr IVPB Q6HR ANITA Rx#:[id number] Lactated Ringers 1,000 ml 550 250 @ 20 mls/hr IV .Q24H ANITA Rx#:[id number] cardiac output ns 100 230 60 ceFAZolin 2 gm In Sodium 50 Chloride 0.9% 50 ml @ 100 mls/hr IVPB Q8HR ANITA Rx# :[id number] Intake, IV Titration 895.682 760.179 84.185 Amount ACETAMINOPHEN IV (For NPO 100 ) 1,000 mg In Empty Bag 1 bag @ 400 mls/hr IVPB Q6HR ANITA Rx#:[id number] Albumin Human 5% 250 ml 250 In Empty Bag 1 bag @ 250 mls/hr IVPB ONCE ONE Rx#: [id number] Albumin Human 5% 250 ml 500 In Empty Bag 1 bag @ 250 mls/hr IVPB Q1HR PRN Rx#: [id number] Dexmedetomidine/0.9% NaCl 35.378 (Pmx) 400 mcg In Empty Bag 1 bag @ Titrate IV . Q0M ANITA Rx#:[id number] Insulin Regular 100 unit 0.808 51.400 35.543 In Sodium Chloride 0.9% 100 ml @ Per Protocol IV .Q0M ANITA Rx#:[id number] Lactated Ringers 1,000 ml 150 50 @ 20 mls/hr IV .Q24H ANITA Rx#:[id number] Milrinone-D5w Pmx 20 mg 5.8 59.633 15.388 In Dextrose/Water 1 100ml .bag @ 0.2 MCG/KG/MIN 5. 862 mls/hr IV .Q17H4M ANITA Rx#:[id number] Nitroglycerin-D5w Pmx 50 8.225 mg In Dextrose/Water 1 250ml.bag @ 5 MCG/MIN 1.5 mls/hr IV .Q24H ANITA Rx#: [id number] Norepinephrine 4 mg In 31.578 305.543 33.254 Sodium Chloride 0.9% 250 ml @ 0.02 MCG/KG/MIN 7. 445 mls/hr IV .Q24H ANITA Rx#:[id number] ceFAZolin 2 gm In Sodium 50 Chloride 0.9% 50 ml @ 100 mls/hr IVPB Q8HR ANITA Rx# :[id number] propofoL 1,000 mg In 57.496 Empty Bag 1 bag @ Titrate IV .Q0M ANITA Rx#: [id number] Output: Chest Tube Drainage [address] 140 240 60 Rt pleural Lt pleural CT 370 710 210 Gastric Drainage 125 Drainage 0 Left Arm 0 Urine 1110 461 145 Estimated Blood Loss 1800 Other: Voiding Method Indwelling Catheter Indwelling Catheter Indwelling Catheter ABP, PAP, CO, CI - Last Documented Arterial Blood Pressure 109/51 Pulmonary Artery Pressure 34/12 Cardiac Output 5.7 Cardiac Index 2.7 - Labs CBC & Chem 7: 05/02/23 04:05 05/02/23 04:05 Labs: Abnormal Lab Results - Last 24 Hours (Table) 04/24/23 05/01/23 05/01/23 Range/Units 16:00 08:16 10:13 WBC (3.8-10.6) k/uL RBC (4.30-5.90) m/uL Hgb (13.0-17.5) gm/dL Hct (39.0-53.0) % Plt Count (150-450) k/uL Neutrophils # (1.3-7.7) k/uL Lymphocytes # (1.0-4.8) k/uL Monocytes # (0-1.0) k/uL APTT (22.0-30.0) sec ABG pH (7.35-7.45) ABG pCO2 (35-45) mmHg ABG pO2 333 H 207 H (83-108) mmHg ABG Total CO2 26 H (19-24) mmol/L ABG O2 Saturation 99.3 H 99.0 H (94-97) % ABG Hematocrit (34.0-46.0) % ABG Sodium (135-146) mmol/L ABG Potassium 4.8 H 5.7 H (3.4-4.5) mmol/L ABG Ionized Calcium (4.5-5.3) mg/dL ABG Glucose 127 H 192 H (75-99) mg/dL ABG Lactic Acid (0.5-1.6) mmol/L Hemoglobin 12.5 L (13.0-17.5) gm/dL Chloride (98-107) mmol/L POC Glucose (mg/dL) (70-110) mg/dL Calcium (8.4-10.2) mg/dL Magnesium (1.6-2.3) mg/dL Total Protein (6.3-8.2) g/dL Albumin (3.5-5.0) g/dL Arterial Blood Potassium 4.8 H 5.7 H (3.4-4.5) mmol/L Arterial Blood Glucose 127 H 192 H (75-99) mg/dL Crossmatch See Detail 05/01/23 05/01/23 05/01/23 Range/Units 10:45 11:21 11:53 WBC (3.8-10.6) k/uL RBC (4.30-5.90) m/uL Hgb (13.0-17.5) gm/dL Hct (39.0-53.0) % Plt Count (150-450) k/uL Neutrophils # (1.3-7.7) k/uL Lymphocytes # (1.0-4.8) k/uL Monocytes # (0-1.0) k/uL APTT (22.0-30.0) sec ABG pH 7.34 L (7.35-7.45) ABG pCO2 (35-45) mmHg ABG pO2 353 H 378 H 350 H (83-108) mmHg ABG Total CO2 26 H 26 H (19-24) mmol/L ABG O2 Saturation 99.5 H 99.7 H 99.5 H (94-97) % ABG Hematocrit 30 L 28 L 27 L (34.0-46.0) % ABG Sodium 132 L (135-146) mmol/L ABG Potassium 4.7 H (3.4-4.5) mmol/L ABG Ionized Calcium 4.1 L 4.2 L 4.1 L (4.5-5.3) mg/dL ABG Glucose 155 H 142 H 136 H (75-99) mg/dL ABG Lactic Acid 1.8 H 1.9 H (0.5-1.6) mmol/L Hemoglobin 9.8 L 9.2 L 8.9 L (13.0-17.5) gm/dL Chloride (98-107) mmol/L POC Glucose (mg/dL) (70-110) mg/dL Calcium (8.4-10.2) mg/dL Magnesium (1.6-2.3) mg/dL Total Protein (6.3-8.2) g/dL Albumin (3.5-5.0) g/dL Arterial Blood Potassium 4.7 H (3.4-4.5) mmol/L Arterial Blood Glucose 155 H 142 H 136 H (75-99) mg/dL Crossmatch 05/01/23 05/01/23 05/01/23 Range/Units 12:51 13:21 13:51 WBC (3.8-10.6) k/uL RBC (4.30-5.90) m/uL Hgb (13.0-17.5) gm/dL Hct (39.0-53.0) % Plt Count (150-450) k/uL Neutrophils # (1.3-7.7) k/uL Lymphocytes # (1.0-4.8) k/uL Monocytes # (0-1.0) k/uL APTT (22.0-30.0) sec ABG pH 7.31 L (7.35-7.45) ABG pCO2 49 H (35-45) mmHg ABG pO2 351 H 335 H 336 H (83-108) mmHg ABG Total CO2 27 H 26 H 26 H (19-24) mmol/L ABG O2 Saturation 99.4 H 99.5 H 99.4 H (94-97) % ABG Hematocrit 27 L 26 L 26 L (34.0-46.0) % ABG Sodium (135-146) mmol/L ABG Potassium (3.4-4.5) mmol/L ABG Ionized Calcium 4.2 L 4.2 L 4.2 L (4.5-5.3) mg/dL ABG Glucose 142 H 178 H 169 H (75-99) mg/dL ABG Lactic Acid 2.1 H 1.9 H 2.6 H* (0.5-1.6) mmol/L Hemoglobin 8.8 L 8.6 L 8.4 L (13.0-17.5) gm/dL Chloride (98-107) mmol/L POC Glucose (mg/dL) (70-110) mg/dL Calcium (8.4-10.2) mg/dL Magnesium (1.6-2.3) mg/dL Total Protein (6.3-8.2) g/dL Albumin (3.5-5.0) g/dL Arterial Blood Potassium (3.4-4.5) mmol/L Arterial Blood Glucose 142 H 178 H 169 H (75-99) mg/dL Crossmatch 05/01/23 05/01/23 05/01/23 Range/Units 14:42 15:30 15:30 WBC 24.5 H (3.8-10.6) k/uL RBC 3.84 L (4.30-5.90) m/uL Hgb 11.4 L (13.0-17.5) gm/dL Hct 34.0 L (39.0-53.0) % Plt Count (150-450) k/uL Neutrophils # 22.3 H (1.3-7.7) k/uL Lymphocytes # 0.8 L (1.0-4.8) k/uL Monocytes # 1.3 H (0-1.0) k/uL APTT (22.0-30.0) sec ABG pH 7.32 L (7.35-7.45) ABG pCO2 49 H (35-45) mmHg ABG pO2 133 H (83-108) mmHg ABG Total CO2 27 H (19-24) mmol/L ABG O2 Saturation 98.2 H (94-97) % ABG Hematocrit 31 L (34.0-46.0) % ABG Sodium (135-146) mmol/L ABG Potassium (3.4-4.5) mmol/L ABG Ionized Calcium (4.5-5.3) mg/dL ABG Glucose 126 H (75-99) mg/dL ABG Lactic Acid 2.5 H* (0.5-1.6) mmol/L Hemoglobin 10.2 L (13.0-17.5) gm/dL Chloride (98-107) mmol/L POC Glucose (mg/dL) 111 H (70-110) mg/dL Calcium (8.4-10.2) mg/dL Magnesium (1.6-2.3) mg/dL Total Protein (6.3-8.2) g/dL Albumin (3.5-5.0) g/dL Arterial Blood Potassium (3.4-4.5) mmol/L Arterial Blood Glucose 126 H (75-99) mg/dL Crossmatch 05/01/23 05/01/23 05/01/23 Range/Units 15:30 15:52 16:35 WBC (3.8-10.6) k/uL RBC (4.30-5.90) m/uL Hgb (13.0-17.5) gm/dL Hct (39.0-53.0) % Plt Count (150-450) k/uL Neutrophils # (1.3-7.7) k/uL Lymphocytes # (1.0-4.8) k/uL Monocytes # (0-1.0) k/uL APTT (22.0-30.0) sec ABG pH (7.35-7.45) ABG pCO2 (35-45) mmHg ABG pO2 246 H (83-108) mmHg ABG Total CO2 26 H (19-24) mmol/L ABG O2 Saturation 100.0 H (94-97) % ABG Hematocrit (34.0-46.0) % ABG Sodium (135-146) mmol/L ABG Potassium (3.4-4.5) mmol/L ABG Ionized Calcium (4.5-5.3) mg/dL ABG Glucose (75-99) mg/dL ABG Lactic Acid (0.5-1.6) mmol/L Hemoglobin (13.0-17.5) gm/dL Chloride 108 H (98-107) mmol/L POC Glucose (mg/dL) 148 H (70-110) mg/dL Calcium 7.8 L (8.4-10.2) mg/dL Magnesium 2.7 H (1.6-2.3) mg/dL Total Protein 5.1 L (6.3-8.2) g/dL Albumin 2.9 L (3.5-5.0) g/dL Arterial Blood Potassium (3.4-4.5) mmol/L Arterial Blood Glucose (75-99) mg/dL Crossmatch 05/01/23 05/01/23 05/01/23 Range/Units 17:36 18:40 19:09 WBC 20.6 H (3.8-10.6) k/uL RBC 3.39 L (4.30-5.90) m/uL Hgb 10.1 L (13.0-17.5) gm/dL Hct 29.8 L (39.0-53.0) % Plt Count (150-450) k/uL Neutrophils # 19.0 H (1.3-7.7) k/uL Lymphocytes # 0.4 L (1.0-4.8) k/uL Monocytes # 1.1 H (0-1.0) k/uL APTT (22.0-30.0) sec ABG pH (7.35-7.45) ABG pCO2 (35-45) mmHg ABG pO2 (83-108) mmHg ABG Total CO2 (19-24) mmol/L ABG O2 Saturation (94-97) % ABG Hematocrit (34.0-46.0) % ABG Sodium (135-146) mmol/L ABG Potassium (3.4-4.5) mmol/L ABG Ionized Calcium (4.5-5.3) mg/dL ABG Glucose (75-99) mg/dL ABG Lactic Acid (0.5-1.6) mmol/L Hemoglobin (13.0-17.5) gm/dL Chloride (98-107) mmol/L POC Glucose (mg/dL) 176 H 160 H (70-110) mg/dL Calcium (8.4-10.2) mg/dL Magnesium (1.6-2.3) mg/dL Total Protein (6.3-8.2) g/dL Albumin (3.5-5.0) g/dL Arterial Blood Potassium (3.4-4.5) mmol/L Arterial Blood Glucose (75-99) mg/dL Crossmatch 05/01/23 05/01/23 05/01/23 Range/Units 19:46 19:58 19:58 WBC 18.0 H (3.8-10.6) k/uL RBC 3.13 L (4.30-5.90) m/uL Hgb 9.4 L (13.0-17.5) gm/dL Hct 27.6 L (39.0-53.0) % Plt Count (150-450) k/uL Neutrophils # 16.6 H (1.3-7.7) k/uL Lymphocytes # 0.4 L (1.0-4.8) k/uL Monocytes # (0-1.0) k/uL APTT 33.3 H (22.0-30.0) sec ABG pH (7.35-7.45) ABG pCO2 (35-45) mmHg ABG pO2 (83-108) mmHg ABG Total CO2 (19-24) mmol/L ABG O2 Saturation (94-97) % ABG Hematocrit (34.0-46.0) % ABG Sodium (135-146) mmol/L ABG Potassium (3.4-4.5) mmol/L ABG Ionized Calcium (4.5-5.3) mg/dL ABG Glucose (75-99) mg/dL ABG Lactic Acid (0.5-1.6) mmol/L Hemoglobin (13.0-17.5) gm/dL Chloride (98-107) mmol/L POC Glucose (mg/dL) 175 H (70-110) mg/dL Calcium (8.4-10.2) mg/dL Magnesium (1.6-2.3) mg/dL Total Protein (6.3-8.2) g/dL Albumin (3.5-5.0) g/dL Arterial Blood Potassium (3.4-4.5) mmol/L Arterial Blood Glucose (75-99) mg/dL Crossmatch 05/01/23 05/01/23 05/01/23 Range/Units 21:23 22:08 22:08 WBC (3.8-10.6) k/uL RBC (4.30-5.90) m/uL Hgb (13.0-17.5) gm/dL Hct (39.0-53.0) % Plt Count (150-450) k/uL Neutrophils # (1.3-7.7) k/uL Lymphocytes # (1.0-4.8) k/uL Monocytes # (0-1.0) k/uL APTT (22.0-30.0) sec ABG pH (7.35-7.45) ABG pCO2 (35-45) mmHg ABG pO2 157 H (83-108) mmHg ABG Total CO2 (19-24) mmol/L ABG O2 Saturation 100.0 H (94-97) % ABG Hematocrit (34.0-46.0) % ABG Sodium (135-146) mmol/L ABG Potassium (3.4-4.5) mmol/L ABG Ionized Calcium (4.5-5.3) mg/dL ABG Glucose (75-99) mg/dL ABG Lactic Acid (0.5-1.6) mmol/L Hemoglobin (13.0-17.5) gm/dL Chloride (98-107) mmol/L POC Glucose (mg/dL) 185 H 173 H (70-110) mg/dL Calcium (8.4-10.2) mg/dL Magnesium (1.6-2.3) mg/dL Total Protein (6.3-8.2) g/dL Albumin (3.5-5.0) g/dL Arterial Blood Potassium (3.4-4.5) mmol/L Arterial Blood Glucose (75-99) mg/dL Crossmatch 05/01/23 05/02/23 05/02/23 Range/Units 23:21 00:18 00:59 WBC (3.8-10.6) k/uL RBC (4.30-5.90) m/uL Hgb (13.0-17.5) gm/dL Hct (39.0-53.0) % Plt Count (150-450) k/uL Neutrophils # (1.3-7.7) k/uL Lymphocytes # (1.0-4.8) k/uL Monocytes # (0-1.0) k/uL APTT (22.0-30.0) sec ABG pH (7.35-7.45) ABG pCO2 (35-45) mmHg ABG pO2 (83-108) mmHg ABG Total CO2 (19-24) mmol/L ABG O2 Saturation (94-97) % ABG Hematocrit (34.0-46.0) % ABG Sodium (135-146) mmol/L ABG Potassium (3.4-4.5) mmol/L ABG Ionized Calcium (4.5-5.3) mg/dL ABG Glucose (75-99) mg/dL ABG Lactic Acid (0.5-1.6) mmol/L Hemoglobin (13.0-17.5) gm/dL Chloride (98-107) mmol/L POC Glucose (mg/dL) 167 H 156 H 150 H (70-110) mg/dL Calcium (8.4-10.2) mg/dL Magnesium (1.6-2.3) mg/dL Total Protein (6.3-8.2) g/dL Albumin (3.5-5.0) g/dL Arterial Blood Potassium (3.4-4.5) mmol/L Arterial Blood Glucose (75-99) mg/dL Crossmatch 05/02/23 05/02/23 05/02/23 Range/Units 02:06 02:55 04:05 WBC (3.8-10.6) k/uL RBC 2.56 L (4.30-5.90) m/uL Hgb 7.7 L D (13.0-17.5) gm/dL Hct 22.6 L (39.0-53.0) % Plt Count 130 L (150-450) k/uL Neutrophils # 9.1 H (1.3-7.7) k/uL Lymphocytes # 0.6 L (1.0-4.8) k/uL Monocytes # (0-1.0) k/uL APTT (22.0-30.0) sec ABG pH (7.35-7.45) ABG pCO2 (35-45) mmHg ABG pO2 (83-108) mmHg ABG Total CO2 (19-24) mmol/L ABG O2 Saturation (94-97) % ABG Hematocrit (34.0-46.0) % ABG Sodium (135-146) mmol/L ABG Potassium (3.4-4.5) mmol/L ABG Ionized Calcium (4.5-5.3) mg/dL ABG Glucose (75-99) mg/dL ABG Lactic Acid (0.5-1.6) mmol/L Hemoglobin (13.0-17.5) gm/dL Chloride (98-107) mmol/L POC Glucose (mg/dL) 138 H 127 H (70-110) mg/dL Calcium (8.4-10.2) mg/dL Magnesium (1.6-2.3) mg/dL Total Protein (6.3-8.2) g/dL Albumin (3.5-5.0) g/dL Arterial Blood Potassium (3.4-4.5) mmol/L Arterial Blood Glucose (75-99) mg/dL Crossmatch 05/02/23 05/02/23 05/02/23 Range/Units 04:05 04:05 05:06 WBC (3.8-10.6) k/uL RBC (4.30-5.90) m/uL Hgb (13.0-17.5) gm/dL Hct (39.0-53.0) % Plt Count (150-450) k/uL Neutrophils # (1.3-7.7) k/uL Lymphocytes # (1.0-4.8) k/uL Monocytes # (0-1.0) k/uL APTT (22.0-30.0) sec ABG pH (7.35-7.45) ABG pCO2 (35-45) mmHg ABG pO2 (83-108) mmHg ABG Total CO2 (19-24) mmol/L ABG O2 Saturation (94-97) % ABG Hematocrit (34.0-46.0) % ABG Sodium (135-146) mmol/L ABG Potassium (3.4-4.5) mmol/L ABG Ionized Calcium (4.5-5.3) mg/dL ABG Glucose (75-99) mg/dL ABG Lactic Acid (0.5-1.6) mmol/L Hemoglobin (13.0-17.5) gm/dL Chloride (98-107) mmol/L POC Glucose (mg/dL) 112 H 156 H (70-110) mg/dL Calcium 7.7 L (8.4-10.2) mg/dL Magnesium (1.6-2.3) mg/dL Total Protein 5.1 L (6.3-8.2) g/dL Albumin 3.1 L (3.5-5.0) g/dL Arterial Blood Potassium (3.4-4.5) mmol/L Arterial Blood Glucose (75-99) mg/dL Crossmatch 05/02/23 05/02/23 05/02/23 Range/Units 06:13 07:02 08:07 WBC (3.8-10.6) k/uL RBC (4.30-5.90) m/uL Hgb (13.0-17.5) gm/dL Hct (39.0-53.0) % Plt Count (150-450) k/uL Neutrophils # (1.3-7.7) k/uL Lymphocytes # (1.0-4.8) k/uL Monocytes # (0-1.0) k/uL APTT (22.0-30.0) sec ABG pH (7.35-7.45) ABG pCO2 (35-45) mmHg ABG pO2 (83-108) mmHg ABG Total CO2 (19-24) mmol/L ABG O2 Saturation (94-97) % ABG Hematocrit (34.0-46.0) % ABG Sodium (135-146) mmol/L ABG Potassium (3.4-4.5) mmol/L ABG Ionized Calcium (4.5-5.3) mg/dL ABG Glucose (75-99) mg/dL ABG Lactic Acid (0.5-1.6) mmol/L Hemoglobin (13.0-17.5) gm/dL Chloride (98-107) mmol/L POC Glucose (mg/dL) 197 H 190 H 151 H (70-110) mg/dL Calcium (8.4-10.2) mg/dL Magnesium (1.6-2.3) mg/dL Total Protein (6.3-8.2) g/dL Albumin (3.5-5.0) g/dL Arterial Blood Potassium (3.4-4.5) mmol/L Arterial Blood Glucose (75-99) mg/dL Crossmatch 05/02/23 05/02/23 Range/Units 09:03 10:04 WBC (3.8-10.6) k/uL RBC (4.30-5.90) m/uL Hgb (13.0-17.5) gm/dL Hct (39.0-53.0) % Plt Count (150-450) k/uL Neutrophils # (1.3-7.7) k/uL Lymphocytes # (1.0-4.8) k/uL Monocytes # (0-1.0) k/uL APTT (22.0-30.0) sec ABG pH (7.35-7.45) ABG pCO2 (35-45) mmHg ABG pO2 (83-108) mmHg ABG Total CO2 (19-24) mmol/L ABG O2 Saturation (94-97) % ABG Hematocrit (34.0-46.0) % ABG Sodium (135-146) mmol/L ABG Potassium (3.4-4.5) mmol/L ABG Ionized Calcium (4.5-5.3) mg/dL ABG Glucose (75-99) mg/dL ABG Lactic Acid (0.5-1.6) mmol/L Hemoglobin (13.0-17.5) gm/dL Chloride (98-107) mmol/L POC Glucose (mg/dL) 140 H 121 H (70-110) mg/dL Calcium (8.4-10.2) mg/dL Magnesium (1.6-2.3) mg/dL Total Protein (6.3-8.2) g/dL Albumin (3.5-5.0) g/dL Arterial Blood Potassium (3.4-4.5) mmol/L Arterial Blood Glucose (75-99) mg/dL Crossmatch
[2023-05-02 12:10] LABS: Glucose,Whole Blood 155 mg/dL (70-110)
[2023-05-02 13:06] LABS: Glucose,Whole Blood 211 mg/dL (70-110)
--- NOTE | 2023-05-02 13:24 | CONS ---
CONSULTATION HISTORY OF PRESENT ILLNESS: This is a 57-year-old gentleman, who underwent aortocoronary bypass surgery yesterday performed by Dr. Azar Barr. This gentleman had severe triple-vessel disease and total occlusion of circumflex based on a cardiac catheterization by Dr. Tate that was performed on April 18, 2023. The patient had severe triple-vessel disease involving mid RCA, PLV branch of RCA, occluded circumflex system, severe disease in the ramus, and also proximal LAD. He underwent aortocoronary bypass surgery yesterday. He had OSPINA to LAD sequentially to the diagonal, a free radial artery graft from aorta to the ramus intermedius, and another saphenous vein graft sequentially to PDA and PLV branches of RCA. The patient is doing well. He has been extubated. He is on a small dose of Levophed, making fairly decent urine output. EKG did not reveal any acute changes. He is resting comfortably, working with incentive spirometry. He also received some albumin infusions. He is on a small dose of Levophed and slightly tachycardic with a heart rate of 100 in sinus rhythm and also just beta-blockers have been started. PAST MEDICAL HISTORY: 1. CAD with severe triple-vessel disease. 2. History of hypertension. 3. TIA in the past. 4. Hyperlipidemia. Please refer to the detailed note by Dr. Tate from April 18, and also note from Dr. Barr. PHYSICAL EXAMINATION: VITAL SIGNS: Blood pressure is 108/70. Pulse rate is about 100, sinus. HEENT: Unremarkable. Fundus not examined. HEART: Reveals S1 and S2. No significant murmurs. LUNGS: Reveal bilateral fair air entry. ABDOMEN: Soft. EXTREMITIES: Lower extremities reveal diminished pulses. CENTRAL NERVOUS SYSTEM: No focal deficits. IMPRESSION: 1. Status post five-vessel bypass surgery. 2. Hypertension. 3. History of transient ischemic attack in the past. RECOMMENDATIONS: I have recommended that we continue current medications, gradually wean off the pressors, and do incentive spirometry and pulmonary toilet. The patient is making decent progress. MMODL / IJN: [id number] /
[2023-05-02 13:33] VITALS: BMI 33.0
[2023-05-02 14:19] LABS: Glucose,Whole Blood 192 mg/dL (70-110)
[2023-05-02 15:08] LABS: Glucose,Whole Blood 169 mg/dL (70-110)
[2023-05-02] MEDS: INSULIN REGULAR 100 UNIT in SODIUM CHLORIDE 0.9% 100 ML IV SCH (16:23)
[2023-05-02 16:31] LABS: Glucose,Whole Blood 137 mg/dL (70-110)
[2023-05-02 17:09] LABS: Glucose,Whole Blood 182 mg/dL (70-110)
[2023-05-02 18:04] LABS: Glucose,Whole Blood 174 mg/dL (70-110)
[2023-05-02 19:09] LABS: Glucose,Whole Blood 146 mg/dL (70-110)
[2023-05-02] MEDS: LACTATED RINGERS 1,000 ML IV SCH (20:00)
[2023-05-02 20:59] LABS: Glucose,Whole Blood 159 mg/dL (70-110)
[2023-05-02] MEDS: INSULIN ASPART (NovoLOG) 100 UNIT/ML VIAL SQ SCH (21:02)
[2023-05-02] MEDS: ATORVASTATIN 80 MG TAB PO SCH (21:02)
[2023-05-02] MEDS: SENNOSIDES-DOCUSATE SODIUM 1 EACH TAB PO SCH (21:02)
[2023-05-02] MEDS: VASOPRESSIN 60 UNIT in SODIUM CHLORIDE 0.9% 150 ML IV SCH (21:03)
[2023-05-03] MEDS: HEPARIN SODIUM,PORCINE/PF 5,000 UNIT/0.5 ML SYRINGE SQ SCH ×3 (00:34→15:59)
[2023-05-03] MEDS: AMIODARONE 200 MG TAB PO SCH ×3 (00:34→15:59)
[2023-05-03 03:04] LABS: Glucose,Whole Blood 179 mg/dL (70-110)
[2023-05-03] MEDS: HYDROcodone/APAP 5-325MG 1 EACH TAB PO PRN ×3 (04:18→15:59)
[2023-05-03 04:52] LABS: Basophils % (A) 0 %; Eosinophils % (A) 0 %; Lymphocytes # (A) 0.8 k/uL (1.0-4.8); Lymphocytes % (A) 6 %; MCH 30.1 pg (25.0-35.0); MCHC 33.5 g/dL (31.0-37.0); MCV 89.8 fL (80.0-100.0); Mean Platelet Volume 9.2; Monocytes # (A) 0.9 k/uL (0-1.0); Monocytes % (A) 7 %; Neutrophils # (A) 12.2 k/uL (1.3-7.7); Neutrophils % (A) 87 %; Platelet Count 106 k/uL (150-450); RDW 13.2 % (11.5-15.5)
[2023-05-03 04:57] LABS: HCT 19.8 % (39.0-53.0); HGB 6.6 gm/dL (13.0-17.5)
[2023-05-03 05:05] LABS: Ionized Calcium 4.7 mg/dL (4.5-5.3)
[2023-05-03 05:11] LABS: ALT 22 U/L (4-49); AST 54 U/L (17-59); African American GFR (CKD) >90 (>60 ml/min/1.73 sqM); Alkaline Phosphatase 55 U/L (38-126); Anion Gap 5 mmol/L; Blood Urea Nitrogen 15 mg/dL (9-20); Calcium 7.8 mg/dL (8.4-10.2); Carbon Dioxide 24 mmol/L (22-30); Chloride 104 mmol/L (98-107); Glucose 158 mg/dL (74-99); Non-African American GFR(CKD) >90 (>60 ml/min/1.73 sqM); Potassium 4.5 mmol/L (3.5-5.1); Sodium 133 mmol/L (137-145); Total Bilirubin 1.2 mg/dL (0.2-1.3); Total Protein 5.1 g/dL (6.3-8.2)
[2023-05-03 06:41] LABS: Glucose,Whole Blood 197 mg/dL (70-110)
[2023-05-03] MEDS: INSULIN ASPART (NovoLOG) 100 UNIT/ML VIAL SQ SCH ×4 (07:03→21:18)
[2023-05-03] MEDS: FERROUS SULFATE 325 MG TAB PO SCH ×2 (07:04→18:26)
[2023-05-03] MEDS: ASCORBIC ACID 500 MG TAB PO SCH ×2 (07:04→18:26)
[2023-05-03] MEDS: PANTOPRAZOLE 40 MG TABLET PO SCH (07:04)
--- NOTE | 2023-05-03 07:13 | XR ---
EXAMINATION TYPE: XR chest 1V portable DATE OF EXAM: 05/03/2023 COMPARISON: 05/02/2023 HISTORY: Posterior TECHNIQUE: Single frontal view of the chest is obtained. FINDINGS: There is postoperative change with mediastinal drain, [place]-Randall catheter and chest tubes s table in position. Bilateral consolidation and small effusion. Tiny less than 5%. Epicardial leads no kathryn. Atrophic degenerative changes of the spine. IMPRESSION: Stable postoperative change with bilateral consolidation and pleural effusion. Less than 5% right apical stable
--- NOTE | 2023-05-03 07:37 | P.PN ---
Subjective Progress Note Date: 05/03/23 Principal diagnosis: Triple-vessel coronary artery disease. History of recent CVA without residual effect, PFO status post closure in January 2023, hyperlipidemia, daily EtOH use, n ever smoker POD #2 coronary artery bypass grafting 5, left internal mammary artery sequential to the first diagonal branch then left anterior descending artery, left radial artery from the aorta to the ramus intermedius, reverse saphenous vein graft from the aorta sequentially to the posterior descending artery and posterior lateral branch of the right coronary artery, endoscopic left radial and left greater saphenous vein harvest, left atrial appendage ligation with a 35 mm AtriClip, intraoperative transesophageal echocardiogram performed by anesthesia, graft flow measurements using the Lumetastim Postoperative acute blood loss anemia and thrombocytopenia, expected given hemodilution and cardiopulmonary bypass pump Hypotension, currently off pressors The patient was seen and examined this morning sitting up in a recliner in no acute distress eating breakfast. States post surgical pain is slightly better controlled, appears comfortable, denies shortness of breath. Currently in sinus tach with heart rate in the low 100s, blood pressure stable off levo, vaso-, Primacor. Hemoglobin 6.6 this morning, receiving 1 unit packed red blood cells. Urine output stable this time. Chest x-ray, lab work reviewed. Patient to ambulate short distances history with assistance which he tolerated well. Right internal jugular [place]/Cordis, mediastinal/left/right pleural chest tubes, right radial arterial line all remain. No other new concerns. Objective - Vital Signs Vital signs: Vital Signs Temp 99.5 F 05/03/23 07:15 Pulse 101 H 05/03/23 07:15 Resp 22 05/03/23 07:15 BP 110/49 05/03/23 07:15 Pulse Ox 96 05/03/23 07:15 FiO2 50 05/01/23 22:15 Intake & Output 05/02/23 05/03/23 05/03/23 18:59 06:59 18:59 Intake Total 1264.607 707.372 50 Output Total 775 740 40 Balance 489.607 -32.628 10 Weight 95.6 kg 97.4 kg Intake: IV 720 690 50 Lactated Ringers 1,000 ml 600 600 50 @ 20 mls/hr IV .Q24H [facility] Rx#:[id number] cardiac output ns 120 90 Intake, IV Titration 244.607 17.372 Amount Insulin Regular 100 unit 49.667 17.372 In Sodium Chloride 0.9% 100 ml @ Per Protocol IV .Q0M [facility] Rx#:[id number] Milrinone-D5w Pmx 20 mg 15.388 In Dextrose/Water 1 100ml .bag @ 0.2 MCG/KG/MIN 5. 862 mls/hr IV .Q17H4M [facility] Rx#:[id number] Norepinephrine 4 mg In 46.901 Sodium Chloride 0.9% 250 ml @ 0.02 MCG/KG/MIN 7. 445 mls/hr IV .Q24H [facility] Rx#:[id number] Vasopressin 60 unit In 132.651 Sodium Chloride 0.9% 150 ml @ 0.04 UNITS/MIN 6.12 mls/hr IV .Q24H [facility] Rx#: [id number] Oral 300 Blood Product 0 Rc Pheresis 2 As3 Unit 0 [id number] Output: Chest Tube Drainage [address] 120 60 0 Rt pleural Lt pleural CT 310 200 20 Urine 345 480 20 Other: Voiding Method Indwelling Catheter Indwelling Catheter ABP, PAP, CO, CI - Last Documented Arterial Blood Pressure 107/54 Pulmonary Artery Pressure 34/13 Cardiac Output 8 Cardiac Index 3.9 - Exam CONSTITUTIONAL: Appears comfortable, cooperative, no acute distress RESPIRATORY: Lungs sounds diminished bilaterally. Respirations even, nonlabored. Currently on 2 L nasal cannula with oxygen saturation 95%. Able to achieve 750 mL on incentive spirometry. Weak cough. CARDIOVASCULAR: S1, S2 present. Tachy but regular rate and rhythm, sinus tach on telemetry. Sternum stable. Palpable peripheral pulses bilaterally. No edema present. No calf pain or tenderness noted. Heart hugger in place with patient demonstrating appropriate use. Antiembolism stockings, SCDs present. GASTROINTESTINAL: Abdomen soft, nontender, nondistended. Active bowel sounds present 4 quadrants. Tolerating clear liquids. Positive flatus GENITOURINARY: Hutton present draining clear, yellow urine. Output overnight 30-75 mL per hour, 825 mL in the last 24 hours INTEGUMENTARY: Skin is warm and dry with evidence of good perfusion. Anterior chest incision well approximated and covered with dry intact dressing. Left radial artery harvest site as well as left lower extremity EVH site well approximated without redness NEUROLOGIC: Cranial nerves II through XII intact MUSKULOSKELETAL: Able to move all extremities, strength equal bilaterally PSYCHIATRIC: Alert and oriented to person place and time, appropriate affect, intact judgment and insight INVASIVE LINES AND TUBES: Mediastinal/left/right pleural chest tubes present and connected to wall suction, no air leaks present. Mediastinal tube with 50 mL serosanguineous drainage overnight, 150 mL in the last 24 hours. Left/right pleural chest tubes with 150 mL sanguineous drainage overnight, 500 mL in the last 24 hours. A/V epicardial pacemaker wires present, connected to generator, generator off. Right internal jugular [place]/Cordis, right radial arterial line present. Last CO/CI 8.0/3.9, PA 36/15, CVP 9. - Allied health notes Allied health notes reviewed: nursing - Labs CBC & Chem 7: 05/03/23 04:30 05/03/23 04:30 Labs: Abnormal Lab Results - Last 24 Hours (Table) 05/02/23 05/02/23 05/02/23 Range/Units 08:07 09:03 10:04 WBC (3.8-10.6) k/uL RBC (4.30-5.90) m/uL Hgb (13.0-17.5) gm/dL Hct (39.0-53.0) % Plt Count (150-450) k/uL Neutrophils # (1.3-7.7) k/uL Lymphocytes # (1.0-4.8) k/uL Sodium (137-145) mmol/L Glucose (74-99) mg/dL POC Glucose (mg/dL) 151 H 140 H 121 H (70-110) mg/dL Calcium (8.4-10.2) mg/dL Total Protein (6.3-8.2) g/dL Albumin (3.5-5.0) g/dL Crossmatch 05/02/23 05/02/23 05/02/23 Range/Units 12:09 13:05 14:17 WBC (3.8-10.6) k/uL RBC (4.30-5.90) m/uL Hgb (13.0-17.5) gm/dL Hct (39.0-53.0) % Plt Count (150-450) k/uL Neutrophils # (1.3-7.7) k/uL Lymphocytes # (1.0-4.8) k/uL Sodium (137-145) mmol/L Glucose (74-99) mg/dL POC Glucose (mg/dL) 155 H 211 H 192 H (70-110) mg/dL Calcium (8.4-10.2) mg/dL Total Protein (6.3-8.2) g/dL Albumin (3.5-5.0) g/dL Crossmatch 05/02/23 05/02/23 05/02/23 Range/Units 15:07 16:30 17:07 WBC (3.8-10.6) k/uL RBC (4.30-5.90) m/uL Hgb (13.0-17.5) gm/dL Hct (39.0-53.0) % Plt Count (150-450) k/uL Neutrophils # (1.3-7.7) k/uL Lymphocytes # (1.0-4.8) k/uL Sodium (137-145) mmol/L Glucose (74-99) mg/dL POC Glucose (mg/dL) 169 H 137 H 182 H (70-110) mg/dL Calcium (8.4-10.2) mg/dL Total Protein (6.3-8.2) g/dL Albumin (3.5-5.0) g/dL Crossmatch 05/02/23 05/02/23 05/02/23 Range/Units 18:03 19:08 20:59 WBC (3.8-10.6) k/uL RBC (4.30-5.90) m/uL Hgb (13.0-17.5) gm/dL Hct (39.0-53.0) % Plt Count (150-450) k/uL Neutrophils # (1.3-7.7) k/uL Lymphocytes # (1.0-4.8) k/uL Sodium (137-145) mmol/L Glucose (74-99) mg/dL POC Glucose (mg/dL) 174 H 146 H 159 H (70-110) mg/dL Calcium (8.4-10.2) mg/dL Total Protein (6.3-8.2) g/dL Albumin (3.5-5.0) g/dL Crossmatch 05/03/23 05/03/23 05/03/23 Range/Units 03:02 04:30 04:30 WBC 14.0 H (3.8-10.6) k/uL RBC 2.20 L (4.30-5.90) m/uL Hgb 6.6 L* (13.0-17.5) gm/dL Hct 19.8 L* (39.0-53.0) % Plt Count 106 L (150-450) k/uL Neutrophils # 12.2 H (1.3-7.7) k/uL Lymphocytes # 0.8 L (1.0-4.8) k/uL Sodium 133 L (137-145) mmol/L Glucose 158 H (74-99) mg/dL POC Glucose (mg/dL) 179 H (70-110) mg/dL Calcium 7.8 L (8.4-10.2) mg/dL Total Protein 5.1 L (6.3-8.2) g/dL Albumin 3.0 L (3.5-5.0) g/dL Crossmatch 05/03/23 05/03/23 Range/Units 05:16 06:40 WBC (3.8-10.6) k/uL RBC (4.30-5.90) m/uL Hgb (13.0-17.5) gm/dL Hct (39.0-53.0) % Plt Count (150-450) k/uL Neutrophils # (1.3-7.7) k/uL Lymphocytes # (1.0-4.8) k/uL Sodium (137-145) mmol/L Glucose (74-99) mg/dL POC Glucose (mg/dL) 197 H (70-110) mg/dL Calcium (8.4-10.2) mg/dL Total Protein (6.3-8.2) g/dL Albumin (3.5-5.0) g/dL Crossmatch See Detail - Imaging and Cardiology Chest x-ray: report reviewed, image reviewed Assessment and Plan Assessment: Triple-vessel coronary artery disease, status post 5 vessel CABG History of recent CVA without residual effect PFO status post closure in January 2023 Hyperlipidemia, Daily EtOH use Never smoker Postoperative acute blood loss anemia and thrombocytopenia, expected Hypotension Plan: Continue to maximize medical therapy with aspirin, statin, plavix, beta emma. Will increase beta emma therapy when able Wean oxygen as tolerated. Encourage incentive spirometry 10x every hour while awake. Bronchodilators per pulmonology Increase activity, ambulate as tolerated. PT/OT/cardiac rehab consulted Will monitor daily labs and CXRs. Electrolyte replacement per protocol. Transfuse 1 unit PRBCs today GI/DVT prophylaxis Pain control with current medication regimen Insulin managment per internal medicine, patient is not diabetic, preoperative HgA1c 6% Discontinue swan, connect cordis to continuous CVP monitoring Will discontinue mediastinal chest tube, continue pleural chest tubes for another 24 hours, monitor output Discontinue hutton catheter, may bladder scan and straight cath for > 300 mL residual Strict accurate intake and output Daily weights More recommendations to follow depending on patient's progress
[2023-05-03] MEDS: IPRATROPIUM-ALBUTEROL 3 ML NEB INHALATION SCH ×4 (09:09→20:04)
[2023-05-03] MEDS: METOPROLOL TARTRATE 12.5 MG TAB PO SCH (09:15)
[2023-05-03] MEDS: CLOPIDOGREL 75 MG TAB PO SCH (09:15)
[2023-05-03] MEDS: ASPIRIN 325 MG TAB PO SCH (09:15)
--- NOTE | 2023-05-03 09:59 | P.PN ---
Subjective Progress Note Date: 05/03/23 Principal diagnosis: Status post five-vessel bypass grafting. I am seeing this patient in new consultation today 05/02/2023 in the intensive care unit status post operative day #1 for an elective coronary artery bypass grafting 5 with a OSPINA to the diagonal branch and sequentially to the left anterior descending artery, radial artery from aorta to the ramus intermedius, saphenous vein graft from aorta sequential to the posterior descending artery and posteriolateral artery. Patient also had a left atrial appendage ligation. Patient is a 57-year-old white male with past medical history significant for CVA and patent PFO which was closed with Amplatzer Occluder in January,, coronary artery disease, hyperlipidemia. He is a never smoker. He did have a pulmonary function test preoperatively, which had poor patient effort. Based on the patient's best spirometry, he was at no increased operative risk. Postoperatively, the patient was transferred to the intensive care unit intubated and on mechanical ventilator. On my evaluation, the patient was on pressure support of 5 and CPAP of 5 with an FiO2 of 50%. He is awake and alert and able to follow commands. Follow-up ABGs after 30 minutes on these settings show a PaO2 157, pCO2 of 37, pH of 7.4. Weaning parameters were all adequate with a positive cuff leak, RSBI 58, respiratory rate of 23, tidal volume 441, MV 9.5, and NIF -20, VC 5.79L. The patient was then extubated uneventfully to 4 L nasal cannula. He is comfortable without any respiratory distress. He appears neurologically intact without any focal deficits. Blood pressure and cardiac output/index are marginal with a blood pressure 80s over 40s and the last CO/CI of 4.6 and 2.2 respectively. PA pressures are 31/9, indicating some volume deficit. Patient has reportedly artery received 750 ML's of 5% albumin. He also received 2 L of crystalloid intraoperatively. Estimated blood loss was 1.8 L. Chest tube output has a total of 300 ML's of sanguinous drainage total from the mediastinal chest tube and 800 ML's of serosanguineous output from the right and left pleural chest tubes total. He has not required any blood product. Urine output is in order of 20 ML's per hour. Lactated Ringer's is infusing at 50 ML's per hour. He is requiring vasopressor support in the form of norepinephrine at 0.13 mcg/kg/m or approximately 13 mics per minute, vasopressin at physiological dose, and milrinone at 0.2 mcg/kg/m. Patient's nitroglycerin is currently on hold for hypotension. Patient does have a epicardial pacemaker and a backup of 60 bpm and settings of DDD. Intrinsic heart rhythm is normal sinus and heart rate is currently 96 bpm. Most recent CBC shows a WBC count of 18, hemoglobin 9.4, hematocrit 27.6, platelets 176. Most recent BMP shows a sodium 139, potassium 4.4, chloride 108, serum CO2 25, BUN 13, creatinine 0.74, glucose 98. LFTs are not elevated. Insulin is infusing at 4.5 units per hour per protocol. Patient will be monitored in intensive care unit. Progress note dated 05/03/2023. 57-year-old male postop day #2, status post 5 vessel bypass grafting. He seen today in room 253. He is on 3 L of oxygen. He is getting lactated Ringer's at 50 mL an hour. His hemoglobins morning was 6.6. He'll be receiving 1 unit of packed red blood cells. Labs today include a white count of 14, hemoglobin 6.6, hematocrit 19.8, and a platelet count of 106,000. Sodium 133, potassium 4.5, chlorides 104, CO2 24, anion gap 5, BUN 15, and a creatinine of 0.86. Albumin is 3.0. Chest x-ray shows a stable postoperative chest x-ray with bilateral consolidation and pleural effusions. Clinically, the patient's doing very well, without any major complaints, other than pain at the surgical site. Objective - Vital Signs Vital signs: Vital Signs Temp 98.4 F 05/03/23 09:27 Pulse 99 05/03/23 09:27 Resp 18 05/03/23 09:27 BP 122/58 05/03/23 09:27 Pulse Ox 95 05/03/23 09:27 FiO2 50 05/01/23 22:15 Intake & Output 05/02/23 05/03/23 05/03/23 18:59 06:59 18:59 Intake Total 1264.607 707.372 390 Output Total 775 740 40 Balance 489.607 -32.628 350 Weight 95.6 kg 97.4 kg Intake: IV 720 690 50 Lactated Ringers 1,000 ml 600 600 50 @ 20 mls/hr IV .Q24H [facility] Rx#:[id number] cardiac output ns 120 90 Intake, IV Titration 244.607 17.372 Amount Insulin Regular 100 unit 49.667 17.372 In Sodium Chloride 0.9% 100 ml @ Per Protocol IV .Q0M [facility] Rx#:[id number] Milrinone-D5w Pmx 20 mg 15.388 In Dextrose/Water 1 100ml .bag @ 0.2 MCG/KG/MIN 5. 862 mls/hr IV .Q17H4M [facility] Rx#:[id number] Norepinephrine 4 mg In 46.901 Sodium Chloride 0.9% 250 ml @ 0.02 MCG/KG/MIN 7. 445 mls/hr IV .Q24H [facility] Rx#:[id number] Vasopressin 60 unit In 132.651 Sodium Chloride 0.9% 150 ml @ 0.04 UNITS/MIN 6.12 mls/hr IV .Q24H [facility] Rx#: [id number] Oral 300 Blood Product 0 290 Rc Pheresis 2 As3 Unit 0 290 [id number] Other 50 Rc Pheresis 2 As3 Unit 50 [id number] Output: Chest Tube Drainage [address] 120 60 0 Rt pleural Lt pleural CT 310 200 20 Urine 345 480 20 Other: Voiding Method Indwelling Catheter Indwelling Catheter ABP, PAP, CO, CI - Last Documented Arterial Blood Pressure 107/54 Pulmonary Artery Pressure 34/13 Cardiac Output 8 Cardiac Index 3.9 - Exam No acute distress, oriented 3. Currently on 3 L nasal oxygen. No acute respiratory distress. HEENT examination is grossly unremarkable. Mucous membranes are moist. No oral lesions. Neck supple. Full range of motion. No adenopathy thyromegaly or neck vein distention. Cardiovascular examination reveals regular rhythm rate. S1-S2 normal. No S3 or S4. No discernible murmur noted. Heart rate 100 bpm. Lungs reveal scattered bilateral rhonchi. No wheezes or crackles. Breath sounds equal. Saturations are 95% on 3 L. Abdomen soft bowel sounds are heard. No masses or tenderness. Extremities are intact. No cyanosis clubbing or edema. Skin is without rash or lesion. Neurologic examination is brief but nonfocal. - Labs CBC & Chem 7: 05/03/23 04:30 05/03/23 04:30 Labs: Abnormal Lab Results - Last 24 Hours (Table) 05/02/23 05/02/23 05/02/23 Range/Units 10:04 12:09 13:05 WBC (3.8-10.6) k/uL RBC (4.30-5.90) m/uL Hgb (13.0-17.5) gm/dL Hct (39.0-53.0) % Plt Count (150-450) k/uL Neutrophils # (1.3-7.7) k/uL Lymphocytes # (1.0-4.8) k/uL Sodium (137-145) mmol/L Glucose (74-99) mg/dL POC Glucose (mg/dL) 121 H 155 H 211 H (70-110) mg/dL Calcium (8.4-10.2) mg/dL Total Protein (6.3-8.2) g/dL Albumin (3.5-5.0) g/dL Crossmatch 05/02/23 05/02/23 05/02/23 Range/Units 14:17 15:07 16:30 WBC (3.8-10.6) k/uL RBC (4.30-5.90) m/uL Hgb (13.0-17.5) gm/dL Hct (39.0-53.0) % Plt Count (150-450) k/uL Neutrophils # (1.3-7.7) k/uL Lymphocytes # (1.0-4.8) k/uL Sodium (137-145) mmol/L Glucose (74-99) mg/dL POC Glucose (mg/dL) 192 H 169 H 137 H (70-110) mg/dL Calcium (8.4-10.2) mg/dL Total Protein (6.3-8.2) g/dL Albumin (3.5-5.0) g/dL Crossmatch 05/02/23 05/02/23 05/02/23 Range/Units 17:07 18:03 19:08 WBC (3.8-10.6) k/uL RBC (4.30-5.90) m/uL Hgb (13.0-17.5) gm/dL Hct (39.0-53.0) % Plt Count (150-450) k/uL Neutrophils # (1.3-7.7) k/uL Lymphocytes # (1.0-4.8) k/uL Sodium (137-145) mmol/L Glucose (74-99) mg/dL POC Glucose (mg/dL) 182 H 174 H 146 H (70-110) mg/dL Calcium (8.4-10.2) mg/dL Total Protein (6.3-8.2) g/dL Albumin (3.5-5.0) g/dL Crossmatch 05/02/23 05/03/23 05/03/23 Range/Units 20:59 03:02 04:30 WBC 14.0 H (3.8-10.6) k/uL RBC 2.20 L (4.30-5.90) m/uL Hgb 6.6 L* (13.0-17.5) gm/dL Hct 19.8 L* (39.0-53.0) % Plt Count 106 L (150-450) k/uL Neutrophils # 12.2 H (1.3-7.7) k/uL Lymphocytes # 0.8 L (1.0-4.8) k/uL Sodium (137-145) mmol/L Glucose (74-99) mg/dL POC Glucose (mg/dL) 159 H 179 H (70-110) mg/dL Calcium (8.4-10.2) mg/dL Total Protein (6.3-8.2) g/dL Albumin (3.5-5.0) g/dL Crossmatch 05/03/23 05/03/23 05/03/23 Range/Units 04:30 05:16 06:40 WBC (3.8-10.6) k/uL RBC (4.30-5.90) m/uL Hgb (13.0-17.5) gm/dL Hct (39.0-53.0) % Plt Count (150-450) k/uL Neutrophils # (1.3-7.7) k/uL Lymphocytes # (1.0-4.8) k/uL Sodium 133 L (137-145) mmol/L Glucose 158 H (74-99) mg/dL POC Glucose (mg/dL) 197 H (70-110) mg/dL Calcium 7.8 L (8.4-10.2) mg/dL Total Protein 5.1 L (6.3-8.2) g/dL Albumin 3.0 L (3.5-5.0) g/dL Crossmatch See Detail Assessment and Plan Assessment: Post operative day #2 for an elective coronary artery bypass grafting 5 with a OSPINA to the diagonal branch and sequentially to the left anterior descending artery, radial artery from aorta to the ramus intermedius, saphenous vein graft from aorta sequential to the posterior descending artery and posteriolateral artery. Patient also had a left atrial appendage ligation. Acute hypoxemic respiratory failure, was successfully extubated from the mechanical ventilator. Hypotension, requiring vasopressor support in the form of norepinephrine and vasopressin infusions, resolved. Acute blood loss anemia, expected outcome surgery. Leukocytosis, secondary to above. Coronary artery disease. History of CVA and patent [place]or[place] ovale status post closure with Amplatzer Occluder in January,. Hyperlipidemia. Plan: Plan dated 05/03/2023. The patient will get a unit of packed red blood cells today for hemoglobin of 6.6. The patient remains on 3 L of oxygen, and saturations are in the mid 90s. The patient is postop day #2, status post five-vessel bypass grafting. Labs, x- rays, and medications are all reviewed. The patient's prognosis is guarded. We will continue to follow the patient and make recommendations along the way. Time with Patient: Less than 30
--- NOTE | 2023-05-03 11:24 | P.PN ---
Subjective Progress Note Date: 05/03/23 Subjective: Patient seen and examined at bedside. No acute events overnight. He is on 3 L nasal cannula. Continues to have chest tubes in place. Also has a Crystal catheter in place. Pertinent positives and negatives as discussed above, a complete review of systems was performed and all other systems are negative. Vitals Signs Reviewed. General: nontoxic, no distress, appears at stated age Derm: warm, dry, dressing clean, dry, intact Head: atraumatic, normocephalic, symmetric Eyes: EOMI, no lid lag, anicteric sclera Mouth: no lip lesion, mucus membranes moist Cardiovascular: S1S2 reg, tachycardic, no murmur Lungs: CTA bilateral, no rhonchi, no rales , no accessory muscle use, supplemental oxygen Abdominal: soft, nontender to palpation, no guarding, no appreciable organom egaly Ext: no gross muscle atrophy, no edema, no contractures Neuro: CN II-XI grossly intact, no focal neuro deficits Psych: Alert, oriented, appropriate affect Data Reviewed Today: Pertinent Labs: WBC 14, hemoglobin 6.6, platelet 106, sodium 133, creatinine 0.86, blood glucose range between 158-179 Imaging: Chest x-ray independently interpreted, shows poor inspiratory effort, bilateral pleural effusions, pulmonary vascular congestion, similar to yesterday Assessment and Plan: CAD status post CABG and left atrial appendage ligation Postoperative hypotension, expected outcome, resolved Postoperative acute blood loss anemia, expected outcome, status post 1 unit PRBCs Acute hypoxic respiratory failure status post extubation Dyslipidemia History of TIA Sinus tachycardia Prediabetes, A1c 6.0 -Cardiothoracic surgery note reviewed, discontinue mediastinal chest tube, discontinue Crystal catheter -Pulmonology note reviewed, continue supportive care -Continue aspirin, Plavix, atorvastatin -Being transfused 1 unit of PRBCs, continue monitor CBC -On oral amiodarone -Oral intake improving, patient started on sliding scale insulin -Continue to monitor sugars -DVT prophylaxis and pain management per surgery Thank you for allowing us to participate in the care of this pleasant patient. Do not hesitate to contact us with questions. Someone can be reached from the [facility] hospitalist group all hours of the day at [phone] or via perfect serve. Objective - Vital Signs Vital signs: Vital Signs Temp 98.4 F 05/03/23 09:27 Pulse 100 05/03/23 10:00 Resp 22 05/03/23 10:00 BP 122/58 05/03/23 09:27 Pulse Ox 95 05/03/23 10:00 FiO2 50 05/01/23 22:15 Intake & Output 05/02/23 05/03/23 05/03/23 18:59 06:59 18:59 Intake Total 1264.607 707.372 750 Output Total 775 740 200 Balance 489.607 -32.628 550 Weight 95.6 kg 97.4 kg Intake: IV 720 690 150 Lactated Ringers 1,000 ml 600 600 150 @ 20 mls/hr IV .Q24H ANITA Rx#:[id number] cardiac output ns 120 90 Intake, IV Titration 244.607 17.372 20 Amount Insulin Regular 100 unit 49.667 17.372 In Sodium Chloride 0.9% 100 ml @ Per Protocol IV .Q0M ANITA Rx#:[id number] Lactated Ringers 1,000 ml 20 @ 20 mls/hr IV .Q24H ANITA Rx#:[id number] Milrinone-D5w Pmx 20 mg 15.388 In Dextrose/Water 1 100ml .bag @ 0.2 MCG/KG/MIN 5. 862 mls/hr IV .Q17H4M ANITA Rx#:[id number] Norepinephrine 4 mg In 46.901 Sodium Chloride 0.9% 250 ml @ 0.02 MCG/KG/MIN 7. 445 mls/hr IV .Q24H ANITA Rx#:[id number] Vasopressin 60 unit In 132.651 Sodium Chloride 0.9% 150 ml @ 0.04 UNITS/MIN 6.12 mls/hr IV .Q24H ANITA Rx#: [id number] Oral 300 240 Blood Product 0 290 Rc Pheresis 2 As3 Unit 0 290 [id number] Other 50 Rc Pheresis 2 As3 Unit 50 [id number] Output: Chest Tube Drainage 430 260 50 Lt Pleural [address] 120 60 0 Rt Pleural 0 Rt pleural Lt pleural CT 310 200 20 Urine 345 480 150 Other: Voiding Method Indwelling Catheter Indwelling Catheter Indwelling Catheter ABP, PAP, CO, CI - Last Documented Arterial Blood Pressure 108/50 Pulmonary Artery Pressure 30/10 Cardiac Output 8 Cardiac Index 3.9 - Labs CBC & Chem 7: 05/03/23 04:30 05/03/23 04:30 Labs: Abnormal Lab Results - Last 24 Hours (Table) 05/02/23 05/02/23 05/02/23 Range/Units 12:09 13:05 14:17 WBC (3.8-10.6) k/uL RBC (4.30-5.90) m/uL Hgb (13.0-17.5) gm/dL Hct (39.0-53.0) % Plt Count (150-450) k/uL Neutrophils # (1.3-7.7) k/uL Lymphocytes # (1.0-4.8) k/uL Sodium (137-145) mmol/L Glucose (74-99) mg/dL POC Glucose (mg/dL) 155 H 211 H 192 H (70-110) mg/dL Calcium (8.4-10.2) mg/dL Total Protein (6.3-8.2) g/dL Albumin (3.5-5.0) g/dL Crossmatch 05/02/23 05/02/23 05/02/23 Range/Units 15:07 16:30 17:07 WBC (3.8-10.6) k/uL RBC (4.30-5.90) m/uL Hgb (13.0-17.5) gm/dL Hct (39.0-53.0) % Plt Count (150-450) k/uL Neutrophils # (1.3-7.7) k/uL Lymphocytes # (1.0-4.8) k/uL Sodium (137-145) mmol/L Glucose (74-99) mg/dL POC Glucose (mg/dL) 169 H 137 H 182 H (70-110) mg/dL Calcium (8.4-10.2) mg/dL Total Protein (6.3-8.2) g/dL Albumin (3.5-5.0) g/dL Crossmatch 05/02/23 05/02/23 05/02/23 Range/Units 18:03 19:08 20:59 WBC (3.8-10.6) k/uL RBC (4.30-5.90) m/uL Hgb (13.0-17.5) gm/dL Hct (39.0-53.0) % Plt Count (150-450) k/uL Neutrophils # (1.3-7.7) k/uL Lymphocytes # (1.0-4.8) k/uL Sodium (137-145) mmol/L Glucose (74-99) mg/dL POC Glucose (mg/dL) 174 H 146 H 159 H (70-110) mg/dL Calcium (8.4-10.2) mg/dL Total Protein (6.3-8.2) g/dL Albumin (3.5-5.0) g/dL Crossmatch 05/03/23 05/03/23 05/03/23 Range/Units 03:02 04:30 04:30 WBC 14.0 H (3.8-10.6) k/uL RBC 2.20 L (4.30-5.90) m/uL Hgb 6.6 L* (13.0-17.5) gm/dL Hct 19.8 L* (39.0-53.0) % Plt Count 106 L (150-450) k/uL Neutrophils # 12.2 H (1.3-7.7) k/uL Lymphocytes # 0.8 L (1.0-4.8) k/uL Sodium 133 L (137-145) mmol/L Glucose 158 H (74-99) mg/dL POC Glucose (mg/dL) 179 H (70-110) mg/dL Calcium 7.8 L (8.4-10.2) mg/dL Total Protein 5.1 L (6.3-8.2) g/dL Albumin 3.0 L (3.5-5.0) g/dL Crossmatch 05/03/23 05/03/23 Range/Units 05:16 06:40 WBC (3.8-10.6) k/uL RBC (4.30-5.90) m/uL Hgb (13.0-17.5) gm/dL Hct (39.0-53.0) % Plt Count (150-450) k/uL Neutrophils # (1.3-7.7) k/uL Lymphocytes # (1.0-4.8) k/uL Sodium (137-145) mmol/L Glucose (74-99) mg/dL POC Glucose (mg/dL) 197 H (70-110) mg/dL Calcium (8.4-10.2) mg/dL Total Protein (6.3-8.2) g/dL Albumin (3.5-5.0) g/dL Crossmatch See Detail
[2023-05-03 11:25] LABS: Glucose,Whole Blood 195 mg/dL (70-110)
[2023-05-03 12:43] LABS: HCT 23.4 % (39.0-53.0); HGB 7.6 gm/dL (13.0-17.5); MCH 28.7 pg (25.0-35.0); MCHC 32.7 g/dL (31.0-37.0); MCV 87.7 fL (80.0-100.0); Mean Platelet Volume 9.4; Platelet Count 122 k/uL (150-450); RBC 2.67 m/uL (4.30-5.90); RDW 15.6 % (11.5-15.5); WBC 17.9 k/uL (3.8-10.6)
[2023-05-03 16:06] LABS: Glucose,Whole Blood 186 mg/dL (70-110)
[2023-05-03] MEDS: LACTATED RINGERS 1,000 ML IV SCH (16:36)
--- NOTE | 2023-05-03 19:16 | PN ---
PROGRESS NOTE SUBJECTIVE: Mr. Grace is paced status post bypass surgery. He is off all drips. He has decent urine output. Maintaining sinus rhythm at 96 beats per minute. OBJECTIVE: VITAL SIGNS: Blood pressure 112/70, pulse rate 94 per minute. HEART: S1 and S2 heard normally. Short systolic murmur. LUNGS: Reveal improved air entry. ABDOMEN: Soft. Rest of physical exam is unchanged. PLAN: To continue current medical regimen and continue incentive spirometry and pulmonary toilet. The patient is making good progress. MMODL / IJN: [id number] /
[2023-05-03 20:33] LABS: Glucose,Whole Blood 187 mg/dL (70-110)
[2023-05-03] MEDS: SENNOSIDES-DOCUSATE SODIUM 1 EACH TAB PO SCH (21:17)
[2023-05-03] MEDS: ATORVASTATIN 80 MG TAB PO SCH (21:17)
[2023-05-03] MEDS: METOPROLOL TARTRATE 25 MG TAB PO SCH (21:17)
[2023-05-03] MEDS: HYDROcodone/APAP 10-325MG 1 EACH TAB PO PRN (21:51)
[2023-05-04] MEDS: AMIODARONE 200 MG TAB PO SCH ×2 (00:13→11:57)
[2023-05-04] MEDS: HEPARIN SODIUM,PORCINE/PF 5,000 UNIT/0.5 ML SYRINGE SQ SCH ×3 (00:14→16:28)
[2023-05-04 04:35] LABS: Basophils % (A) 0 %; Eosinophils % (A) 0 %; HCT 21.8 % (39.0-53.0); HGB 7.3 gm/dL (13.0-17.5); Lymphocytes # (A) 0.9 k/uL (1.0-4.8); Lymphocytes % (A) 6 %; MCH 29.4 pg (25.0-35.0); MCHC 33.5 g/dL (31.0-37.0); MCV 87.8 fL (80.0-100.0); Mean Platelet Volume 8.8; Monocytes # (A) 0.9 k/uL (0-1.0); Monocytes % (A) 7 %; Neutrophils # (A) 11.5 k/uL (1.3-7.7); Neutrophils % (A) 86 %; Platelet Count 115 k/uL (150-450); RBC 2.49 m/uL (4.30-5.90); RDW 15.7 % (11.5-15.5); WBC 13.4 k/uL (3.8-10.6)
[2023-05-04 04:45] LABS: ALT 24 U/L (4-49); AST 43 U/L (17-59); African American GFR (CKD) >90 (>60 ml/min/1.73 sqM); Albumin 2.9 g/dL (3.5-5.0); Alkaline Phosphatase 66 U/L (38-126); Anion Gap 4 mmol/L; Blood Urea Nitrogen 13 mg/dL (9-20); Calcium 7.7 mg/dL (8.4-10.2); Carbon Dioxide 28 mmol/L (22-30); Chloride 103 mmol/L (98-107); Glucose 131 mg/dL (74-99); Magnesium 2.1 mg/dL (1.6-2.3); Non-African American GFR(CKD) >90 (>60 ml/min/1.73 sqM); Potassium 4.3 mmol/L (3.5-5.1); Sodium 135 mmol/L (137-145); Total Bilirubin 0.9 mg/dL (0.2-1.3); Total Protein 5.1 g/dL (6.3-8.2)
[2023-05-04] MEDS: LACTATED RINGERS 1,000 ML IV SCH (04:55)
[2023-05-04 06:44] LABS: Glucose,Whole Blood 161 mg/dL (70-110)
[2023-05-04] MEDS: FERROUS SULFATE 325 MG TAB PO SCH ×2 (06:52→16:28)
[2023-05-04] MEDS: ASCORBIC ACID 500 MG TAB PO SCH ×2 (06:52→16:28)
[2023-05-04] MEDS: INSULIN ASPART (NovoLOG) 100 UNIT/ML VIAL SQ SCH ×4 (06:52→20:39)
[2023-05-04] MEDS: PANTOPRAZOLE 40 MG TABLET PO SCH (06:53)
--- NOTE | 2023-05-04 06:56 | P.PN ---
Subjective Progress Note Date: 05/04/23 Principal diagnosis: Status post CABG The patient is a pleasant 57-year-old gentleman with CAD as well as hypertension and dyslipidemia who is status post coronary artery bypass grafting. May [id number] This is postoperative patient day #3. He seems to be stable doing well from a cardiac vascular standpoint overview. He remains hemodynamically stable with marginally low blood pressure and currently he is on metoprolol only with a heart rate in the 80s. He might benefit from some out and mean. Kidney function remains stable and urine output continues to be within normal limits. He has been maintaining normal sinus mechanism. He is on dual antiplatelet therapy along with high intensity statin along with beta emma. The examination is remarkable for regular rhythm with a systolic murmur at the right upper sternal border was clear breathing sounds bilaterally and no lower extremities edema noted Assessment CAD and status post CABG Hypertension Dyslipidemia History of PFO status post percutaneous closure Plan Continue the current medical regimen Continue dual antiplatelet therapy along with high intensity statin Follow-up with the patient Objective - Vital Signs Vital signs: Vital Signs Temp 97.7 F 05/04/23 04:00 Pulse 86 05/04/23 06:00 Resp 21 05/04/23 06:00 BP 100/62 05/04/23 06:00 Pulse Ox 97 05/04/23 06:00 FiO2 50 05/01/23 22:15 Intake & Output 05/03/23 05/03/23 05/04/23 06:59 18:59 06:59 Intake Total 151.065 4014 273 Output Total 740 720 642 Balance -32.628 480 -369 Weight 97.4 kg 97.1 kg Intake: IV 690 150 253 CVP 33 Lactated Ringers 1,000 ml 600 150 220 @ 20 mls/hr IV .Q24H ANITA Rx#:[id number] cardiac output ns 90 Intake, IV Titration 17.372 180 20 Amount Insulin Regular 100 unit 17.372 In Sodium Chloride 0.9% 100 ml @ Per Protocol IV .Q0M ANITA Rx#:[id number] Lactated Ringers 1,000 ml 180 20 @ 20 mls/hr IV .Q24H ANITA Rx#:[id number] Oral 530 Blood Product 0 290 Rc Pheresis 2 As3 Unit 0 290 [id number] Other 50 Rc Pheresis 2 As3 Unit 50 [id number] Output: Chest Tube Drainage 260 195 102 Lt Pleural [address] 60 0 Rt Pleural 50 30 Rt pleural Lt pleural CT 200 20 Urine 480 525 540 Other: Voiding Method Indwelling Catheter Bedside Commode Urinal # Voids 1 # Bowel Movements 1 ABP, PAP, CO, CI - Last Documented Arterial Blood Pressure 100/58 Pulmonary Artery Pressure 30/10 Cardiac Output 8 Cardiac Index 3.9 - Labs CBC & Chem 7: 05/04/23 03:59 05/04/23 03:59 Labs: Abnormal Lab Results - Last 24 Hours (Table) 05/03/23 05/03/23 05/03/23 Range/Units 05:16 11:23 12:20 WBC 17.9 H (3.8-10.6) k/uL RBC 2.67 L (4.30-5.90) m/uL Hgb 7.6 L (13.0-17.5) gm/dL Hct 23.4 L (39.0-53.0) % RDW 15.6 H (11.5-15.5) % Plt Count 122 L (150-450) k/uL Neutrophils # (1.3-7.7) k/uL Lymphocytes # (1.0-4.8) k/uL Sodium (137-145) mmol/L Glucose (74-99) mg/dL POC Glucose (mg/dL) 195 H (70-110) mg/dL Calcium (8.4-10.2) mg/dL Total Protein (6.3-8.2) g/dL Albumin (3.5-5.0) g/dL Crossmatch See Detail 05/03/23 05/03/23 05/04/23 Range/Units 16:05 20:32 03:59 WBC (3.8-10.6) k/uL RBC (4.30-5.90) m/uL Hgb (13.0-17.5) gm/dL Hct (39.0-53.0) % RDW (11.5-15.5) % Plt Count (150-450) k/uL Neutrophils # (1.3-7.7) k/uL Lymphocytes # (1.0-4.8) k/uL Sodium 135 L (137-145) mmol/L Glucose 131 H (74-99) mg/dL POC Glucose (mg/dL) 186 H 187 H (70-110) mg/dL Calcium 7.7 L (8.4-10.2) mg/dL Total Protein 5.1 L (6.3-8.2) g/dL Albumin 2.9 L (3.5-5.0) g/dL Crossmatch 05/04/23 05/04/23 Range/Units 03:59 06:42 WBC 13.4 H (3.8-10.6) k/uL RBC 2.49 L (4.30-5.90) m/uL Hgb 7.3 L (13.0-17.5) gm/dL Hct 21.8 L (39.0-53.0) % RDW 15.7 H (11.5-15.5) % Plt Count 115 L (150-450) k/uL Neutrophils # 11.5 H (1.3-7.7) k/uL Lymphocytes # 0.9 L (1.0-4.8) k/uL Sodium (137-145) mmol/L Glucose (74-99) mg/dL POC Glucose (mg/dL) 161 H (70-110) mg/dL Calcium (8.4-10.2) mg/dL Total Protein (6.3-8.2) g/dL Albumin (3.5-5.0) g/dL Crossmatch
[2023-05-04] MEDS ORDERED: SENNOSIDES-DOCUSATE SODIUM 1 EACH TAB PO PRN (07:04)
--- NOTE | 2023-05-04 08:01 | P.PN ---
Subjective Progress Note Date: 05/04/23 Patient is a 57-year-old male with a medical history of coronary artery disease, dyslipidemia, and prior TIA who presented for five-vessel coronary artery bypass grafting. Patient tolerated the procedure well and was subsequently admitted to the ICU. We were asked to consult for anemia. Patient seen and examined at bedside. Pain is better today. Breathing easier. We discussed prediabetes and need to closely monitor glucose given post-op state. Vital signs reviewed General: nontoxic, no distress, appears at stated age Cardiovascular: S1S2 reg, no murmur, positive posterior tibial pulse bilateral, Lungs: Decreased bs bilateral, no rhonchi, no rales , no accessory muscle use, left sided chest tube in place Abdominal: soft, nontender to palpation, no guarding, no appreciable organomegaly Ext: no gross muscle atrophy, no edema b/l lower extremities, no contractures Neuro: CN II-XI grossly intact, no focal neuro deficits Psych: Alert, oriented, appropriate affect Assessment/Plan: 57-year-old male status post 5 vessel coronary artery bypass grafting and left atrial appendage ligation Acute blood loss anemia and thrombocytopenia, anticipated outcome of procedure, status post 1 unit pRBC -Follow CBC -No indication for further transfusion at this time - continue with ferrous sulfate 325 mg BID X 30 days Prediabetes with A1c 6 Obesity with BMI 33.5 - will discuss with CM to arrange for glucometer, should not need medications with A1C of 6, but given post-op status should monitor BS at home. Will need close follow up with Anastasia Nolan on discharge. Acute hypoxic respiratory failure - wean O2 as able - aggressive pulmonary hygiene Dyslipidemia - statin Chronic/resolved: History of recent TIA Sinus tachycardia Acute hypoxic respiratory failure Postoperative hypotension Imaging: Chest x-ray from 05/04 reviewed by myself which shows left-sided pleural effusion, increased pulmonary vascular marking, chest tube in good position on the left sternotomy wires Data Review: Vital signs reviewed in T-max in the last 24 hours is 99.9 Pulse 85, respirations 18, blood pressure 99/61, O2 sat 97% on 3 L nasal cannula Laboratory analysis reviewed and remarkable for white blood cell count 13.4 (down from 17.9), platelets 1:15 (down from 122), hemoglobin 7.3 (stable from 7.6), sodium 135, calcium 7.7, albumin 2.9 Blood sugars have been 161, 187, and 186 DVT prophylaxis: Heparin Thank you for allowing us to participate in the care of this pleasant patient. Do not hesitate to contact us with questions. Someone can be reached from the [facility] hospitalist group all hours of the day at [phone] or via perfect serve. This dictation was prepared using [employer] voice recognition software. Though every attempt is made to correct errors during dictation some may still exist. Objective - Vital Signs Vital signs: Vital Signs Temp 97.7 F 05/04/23 04:00 Pulse 87 05/04/23 07:00 Resp 17 05/04/23 07:00 BP 99/61 05/04/23 07:00 Pulse Ox 98 05/04/23 07:00 FiO2 50 05/01/23 22:15 Intake & Output 05/03/23 05/04/23 05/04/23 18:59 06:59 18:59 Intake Total 1200 273 23 Output Total 720 642 68 Balance 480 -369 -45 Weight 97.1 kg Intake: IV 150 253 23 CVP 33 3 Lactated Ringers 1,000 ml 150 220 20 @ 20 mls/hr IV .Q24H ANITA Rx#:[id number] Intake, IV Titration 180 20 Amount Lactated Ringers 1,000 ml 180 20 @ 20 mls/hr IV .Q24H ANITA Rx#:[id number] Oral 530 Blood Product 290 Rc Pheresis 2 As3 Unit 290 [id number] Other 50 Rc Pheresis 2 As3 Unit 50 [id number] Output: Chest Tube Drainage 195 102 68 Lt Pleural [address] 0 Rt Pleural 50 30 50 Rt pleural Lt pleural CT 20 Urine 525 540 Other: Voiding Method Bedside Commode Urinal # Voids 1 1 # Bowel Movements 1 1 ABP, PAP, CO, CI - Last Documented Arterial Blood Pressure 100/58 Pulmonary Artery Pressure 30/10 Cardiac Output 8 Cardiac Index 3.9 - Labs CBC & Chem 7: 05/04/23 03:59 05/04/23 03:59 Labs: Abnormal Lab Results - Last 24 Hours (Table) 05/03/23 05/03/23 05/03/23 Range/Units 05:16 11:23 12:20 WBC 17.9 H (3.8-10.6) k/uL RBC 2.67 L (4.30-5.90) m/uL Hgb 7.6 L (13.0-17.5) gm/dL Hct 23.4 L (39.0-53.0) % RDW 15.6 H (11.5-15.5) % Plt Count 122 L (150-450) k/uL Neutrophils # (1.3-7.7) k/uL Lymphocytes # (1.0-4.8) k/uL Sodium (137-145) mmol/L Glucose (74-99) mg/dL POC Glucose (mg/dL) 195 H (70-110) mg/dL Calcium (8.4-10.2) mg/dL Total Protein (6.3-8.2) g/dL Albumin (3.5-5.0) g/dL Crossmatch See Detail 05/03/23 05/03/23 05/04/23 Range/Units 16:05 20:32 03:59 WBC (3.8-10.6) k/uL RBC (4.30-5.90) m/uL Hgb (13.0-17.5) gm/dL Hct (39.0-53.0) % RDW (11.5-15.5) % Plt Count (150-450) k/uL Neutrophils # (1.3-7.7) k/uL Lymphocytes # (1.0-4.8) k/uL Sodium 135 L (137-145) mmol/L Glucose 131 H (74-99) mg/dL POC Glucose (mg/dL) 186 H 187 H (70-110) mg/dL Calcium 7.7 L (8.4-10.2) mg/dL Total Protein 5.1 L (6.3-8.2) g/dL Albumin 2.9 L (3.5-5.0) g/dL Crossmatch 05/04/23 05/04/23 Range/Units 03:59 06:42 WBC 13.4 H (3.8-10.6) k/uL RBC 2.49 L (4.30-5.90) m/uL Hgb 7.3 L (13.0-17.5) gm/dL Hct 21.8 L (39.0-53.0) % RDW 15.7 H (11.5-15.5) % Plt Count 115 L (150-450) k/uL Neutrophils # 11.5 H (1.3-7.7) k/uL Lymphocytes # 0.9 L (1.0-4.8) k/uL Sodium (137-145) mmol/L Glucose (74-99) mg/dL POC Glucose (mg/dL) 161 H (70-110) mg/dL Calcium (8.4-10.2) mg/dL Total Protein (6.3-8.2) g/dL Albumin (3.5-5.0) g/dL Crossmatch
--- NOTE | 2023-05-04 08:11 | P.PN ---
Subjective Progress Note Date: 05/04/23 Principal diagnosis: Triple-vessel coronary artery disease. History of recent CVA without residual effect, PFO status post closure in January 2023, hyperlipidemia, daily EtOH use, n ever smoker POD #3 coronary artery bypass grafting 5, left internal mammary artery sequential to the first diagonal branch then left anterior descending artery, left radial artery from the aorta to the ramus intermedius, reverse saphenous vein graft from the aorta sequentially to the posterior descending artery and posterior lateral branch of the right coronary artery, endoscopic left radial and left greater saphenous vein harvest, left atrial appendage ligation with a 35 mm AtriClip, intraoperative transesophageal echocardiogram performed by anesthesia, graft flow measurements using the [employer] Postoperative acute blood loss anemia and thrombocytopenia, expected given hemodilution and cardiopulmonary bypass pump Hypotension, currently off pressors The patient was seen and examined this morning sitting up in a recliner in no acute distress eating breakfast. States post surgical pain is slightly better controlled, appears comfortable, denies shortness of breath. Currently in sinus rhythm with heart rate in the high 80s to low 90s, blood pressure stable. Hemoglobin 6.6 yesterday, received 1 unit packed red blood cells, 7.3 this morning. Urine output stable this time. Chest x-ray, lab work reviewed. Patient to ambulate short distances history with assistance which he tolerated well. Right internal jugular Cordis, left/right pleural chest tubes all remain. No other new concerns. Objective - Vital Signs Vital signs: Vital Signs Temp 97.7 F 05/04/23 04:00 Pulse 87 05/04/23 07:00 Resp 17 05/04/23 07:00 BP 99/61 05/04/23 07:00 Pulse Ox 98 05/04/23 07:00 FiO2 50 05/01/23 22:15 Intake & Output 05/03/23 05/04/23 05/04/23 18:59 06:59 18:59 Intake Total 1200 273 23 Output Total 720 642 68 Balance 480 -369 -45 Weight 97.1 kg Intake: IV 150 253 23 CVP 33 3 Lactated Ringers 1,000 ml 150 220 20 @ 20 mls/hr IV .Q24H ANITA Rx#:[id number] Intake, IV Titration 180 20 Amount Lactated Ringers 1,000 ml 180 20 @ 20 mls/hr IV .Q24H ANITA Rx#:[id number] Oral 530 Blood Product 290 Rc Pheresis 2 As3 Unit 290 [id number] Other 50 Rc Pheresis 2 As3 Unit 50 [id number] Output: Chest Tube Drainage 195 102 68 Lt Pleural [address] 0 Rt Pleural 50 30 50 Rt pleural Lt pleural CT 20 Urine 525 540 Other: Voiding Method Bedside Commode Urinal # Voids 1 1 # Bowel Movements 1 1 ABP, PAP, CO, CI - Last Documented Arterial Blood Pressure 100/58 Pulmonary Artery Pressure 30/10 Cardiac Output 8 Cardiac Index 3.9 - Exam CONSTITUTIONAL: Appears comfortable, cooperative, no acute distress RESPIRATORY: Lungs sounds diminished bilaterally. Respirations even, nonlabored. Currently on 2 L nasal cannula with oxygen saturation 94%. Able to achieve 500-750 mL on incentive spirometry. Weak cough. CARDIOVASCULAR: S1, S2 present. Regular rate and rhythm, sinus rhythm on telemetry. Sternum stable. Palpable peripheral pulses bilaterally. No edema present. No calf pain or tenderness noted. Heart hugger in place with patient demonstrating appropriate use. Antiembolism stockings, SCDs present. GASTROINTESTINAL: Abdomen soft, nontender, nondistended. Active bowel sounds present 4 quadrants. Tolerating diet. Positive bowel movement GENITOURINARY: Crystal discontinued yesterday, continues to void, output 1065 mL in the last 24 hours INTEGUMENTARY: Skin is warm and dry with evidence of good perfusion. Anterior chest incision well approximated and covered with dry intact dressing. Left radial artery harvest site as well as left lower extremity EVH site well approximated without redness NEUROLOGIC: Cranial nerves II through XII intact MUSKULOSKELETAL: Able to move all extremities, strength equal bilaterally PSYCHIATRIC: Alert and oriented to person place and time, appropriate affect, intact judgment and insight INVASIVE LINES AND TUBES: Left/right pleural chest tubes present and connected to wall suction, no air leaks present. Right pleural chest tube with 50 mL serosanguineous drainage overnight, 150 mL in the last 24 hours. Left pleural chest tube with 68 mL serosanguineous drainage overnight, 180 mL in the last 24 hours. A/V epicardial pacemaker wires present, grounded. Right internal jugular cordis present. Last CVP 11. - Allied health notes Allied health notes reviewed: nursing - Labs CBC & Chem 7: 05/04/23 03:59 05/04/23 03:59 Labs: Abnormal Lab Results - Last 24 Hours (Table) 05/03/23 05/03/23 05/03/23 Range/Units 05:16 11:23 12:20 WBC 17.9 H (3.8-10.6) k/uL RBC 2.67 L (4.30-5.90) m/uL Hgb 7.6 L (13.0-17.5) gm/dL Hct 23.4 L (39.0-53.0) % RDW 15.6 H (11.5-15.5) % Plt Count 122 L (150-450) k/uL Neutrophils # (1.3-7.7) k/uL Lymphocytes # (1.0-4.8) k/uL Sodium (137-145) mmol/L Glucose (74-99) mg/dL POC Glucose (mg/dL) 195 H (70-110) mg/dL Calcium (8.4-10.2) mg/dL Total Protein (6.3-8.2) g/dL Albumin (3.5-5.0) g/dL Crossmatch See Detail 05/03/23 05/03/23 05/04/23 Range/Units 16:05 20:32 03:59 WBC (3.8-10.6) k/uL RBC (4.30-5.90) m/uL Hgb (13.0-17.5) gm/dL Hct (39.0-53.0) % RDW (11.5-15.5) % Plt Count (150-450) k/uL Neutrophils # (1.3-7.7) k/uL Lymphocytes # (1.0-4.8) k/uL Sodium 135 L (137-145) mmol/L Glucose 131 H (74-99) mg/dL POC Glucose (mg/dL) 186 H 187 H (70-110) mg/dL Calcium 7.7 L (8.4-10.2) mg/dL Total Protein 5.1 L (6.3-8.2) g/dL Albumin 2.9 L (3.5-5.0) g/dL Crossmatch 05/04/23 05/04/23 Range/Units 03:59 06:42 WBC 13.4 H (3.8-10.6) k/uL RBC 2.49 L (4.30-5.90) m/uL Hgb 7.3 L (13.0-17.5) gm/dL Hct 21.8 L (39.0-53.0) % RDW 15.7 H (11.5-15.5) % Plt Count 115 L (150-450) k/uL Neutrophils # 11.5 H (1.3-7.7) k/uL Lymphocytes # 0.9 L (1.0-4.8) k/uL Sodium (137-145) mmol/L Glucose (74-99) mg/dL POC Glucose (mg/dL) 161 H (70-110) mg/dL Calcium (8.4-10.2) mg/dL Total Protein (6.3-8.2) g/dL Albumin (3.5-5.0) g/dL Crossmatch - Imaging and Cardiology Chest x-ray: image reviewed Assessment and Plan Assessment: Triple-vessel coronary artery disease, status post 5 vessel CABG History of recent CVA without residual effect PFO status post closure in January 2023 Hyperlipidemia, Daily EtOH use Never smoker Postoperative acute blood loss anemia and thrombocytopenia, expected Hypotension Plan: Continue to maximize medical therapy with aspirin, statin, plavix, beta emma. Will increase beta emma therapy when able Wean oxygen as tolerated. Encourage incentive spirometry 10x every hour while awake. Bronchodilators per pulmonology Increase activity, ambulate as tolerated. PT/OT/cardiac rehab consulted Will monitor daily labs and CXRs. Electrolyte replacement per protocol. No transfusion today GI/DVT prophylaxis Pain control with current medication regimen Insulin managment per internal medicine, patient is not diabetic, preoperative HgA1c 6% Discontinue cordis Will discontinue right pleural chest tube, may discontinue left pleural chest tubes later today Will discontinue epicardial pacemaker wires, patient to remain on bedrest for 1 hour post-wire removal Strict accurate intake and output Daily weights Will place transfer orders for [address] [place] [address] cardiac stepdown unit, may transfer when bed available Discharge planning in progress, anticipate discharge to home with home care over the weekend More recommendations to follow depending on patient's progress
[2023-05-04] MEDS: IPRATROPIUM-ALBUTEROL 3 ML NEB INHALATION SCH ×4 (08:21→21:17)
--- NOTE | 2023-05-04 08:24 | XR ---
EXAMINATION TYPE: XR chest 1V portable DATE OF EXAM: 05/04/2023 COMPARISON: 05/03/2023 HISTORY: Postop TECHNIQUE: Single frontal view of the chest is obtained. FINDINGS: There is postoperative change with mediastinal drain, [place] catheter has been removed and chest tubes stable in position. Bilateral consolidation and small effusion. Tiny less than 5%. Ep icardial leads noted. Atrophic degenerative changes of the spine. IMPRESSION: Stable postsurgical changes of bilateral consolidation and small effusion. No sizable pn eumothorax.
[2023-05-04] MEDS: CLOPIDOGREL 75 MG TAB PO SCH (09:37)
[2023-05-04] MEDS: ASPIRIN 325 MG TAB PO SCH (09:37)
[2023-05-04] MEDS: METOPROLOL TARTRATE 25 MG TAB PO SCH ×2 (09:38→20:41)
[2023-05-04] MEDS: HYDROcodone/APAP 5-325MG 1 EACH TAB PO PRN ×2 (09:41→20:41)
--- NOTE | 2023-05-04 10:05 | P.PN ---
Subjective Progress Note Date: 05/04/23 Principal diagnosis: Status post five-vessel bypass grafting. I am seeing this patient in new consultation today 05/02/2023 in the intensive care unit status post operative day #1 for an elective coronary artery bypass grafting 5 with a OSPINA to the diagonal branch and sequentially to the left anterior descending artery, radial artery from aorta to the ramus intermedius, saphenous vein graft from aorta sequential to the posterior descending artery and posteriolateral artery. Patient also had a left atrial appendage ligation. Patient is a 57-year-old white male with past medical history significant for CVA and patent PFO which was closed with Amplatzer Occluder in January,, coronary artery disease, hyperlipidemia. He is a never smoker. He did have a pulmonary function test preoperatively, which had poor patient effort. Based on the patient's best spirometry, he was at no increased operative risk. Postoperatively, the patient was transferred to the intensive care unit intubated and on mechanical ventilator. On my evaluation, the patient was on pressure support of 5 and CPAP of 5 with an FiO2 of 50%. He is awake and alert and able to follow commands. Follow-up ABGs after 30 minutes on these settings show a PaO2 157, pCO2 of 37, pH of 7.4. Weaning parameters were all adequate with a positive cuff leak, RSBI 58, respiratory rate of 23, tidal volume 441, MV 9.5, and NIF -20, VC 5.79L. The patient was then extubated uneventfully to 4 L nasal cannula. He is comfortable without any respiratory distress. He appears neurologically intact without any focal deficits. Blood pressure and cardiac output/index are marginal with a blood pressure 80s over 40s and the last CO/CI of 4.6 and 2.2 respectively. PA pressures are 31/9, indicating some volume deficit. Patient has reportedly artery received 750 ML's of 5% albumin. He also received 2 L of crystalloid intraoperatively. Estimated blood loss was 1.8 L. Chest tube output has a total of 300 ML's of sanguinous drainage total from the mediastinal chest tube and 800 ML's of serosanguineous output from the right and left pleural chest tubes total. He has not required any blood product. Urine output is in order of 20 ML's per hour. Lactated Ringer's is infusing at 50 ML's per hour. He is requiring vasopressor support in the form of norepinephrine at 0.13 mcg/kg/m or approximately 13 mics per minute, vasopressin at physiological dose, and milrinone at 0.2 mcg/kg/m. Patient's nitroglycerin is currently on hold for hypotension. Patient does have a epicardial pacemaker and a backup of 60 bpm and settings of DDD. Intrinsic heart rhythm is normal sinus and heart rate is currently 96 bpm. Most recent CBC shows a WBC count of 18, hemoglobin 9.4, hematocrit 27.6, platelets 176. Most recent BMP shows a sodium 139, potassium 4.4, chloride 108, serum CO2 25, BUN 13, creatinine 0.74, glucose 98. LFTs are not elevated. Insulin is infusing at 4.5 units per hour per protocol. Patient will be monitored in intensive care unit. Progress note dated 05/03/2023. 57-year-old male postop day #2, status post 5 vessel bypass grafting. He seen today in room 253. He is on 3 L of oxygen. He is getting lactated Ringer's at 50 mL an hour. His hemoglobins morning was 6.6. He'll be receiving 1 unit of packed red blood cells. Labs today include a white count of 14, hemoglobin 6.6, hematocrit 19.8, and a platelet count of 106,000. Sodium 133, potassium 4.5, chlorides 104, CO2 24, anion gap 5, BUN 15, and a creatinine of 0.86. Albumin is 3.0. Chest x-ray shows a stable postoperative chest x-ray with bilateral consolidation and pleural effusions. Clinically, the patient's doing very well, without any major complaints, other than pain at the surgical site. Progress note dated 05/04/2023. 57-year-old male, being seen in room 253. The patient is postop day #3, status post five-vessel bypass grafting. Currently, the patient's doing relatively well. He is on 3 L of oxygen. He is getting lactated Ringer's at 20 mL an hour. The patient has no complaints. He is doing reasonably well on his incentive spirometer. White count 13.4, hemoglobin 7.3, hematocrit 21.8, and a platelet count 115,000. Sodium 135, potassium 4.3, chlorides 103, CO2 28, BUN 13, creatinine 0.84. Albumin is 2.9. Chest x-ray shows some bibasilar atelectasis and small effusions. Objective - Vital Signs Vital signs: Vital Signs Temp 97.7 F 05/04/23 04:00 Pulse 96 05/04/23 08:33 Resp 17 05/04/23 07:00 BP 99/61 05/04/23 07:00 Pulse Ox 98 05/04/23 07:00 FiO2 50 05/01/23 22:15 Intake & Output 05/03/23 05/04/23 05/04/23 18:59 06:59 18:59 Intake Total 1200 273 23 Output Total 720 642 68 Balance 480 -369 -45 Weight 97.1 kg Intake: IV 150 253 23 CVP 33 3 Lactated Ringers 1,000 ml 150 220 20 @ 20 mls/hr IV .Q24H [facility] Rx#:[id number] Intake, IV Titration 180 20 Amount Lactated Ringers 1,000 ml 180 20 @ 20 mls/hr IV .Q24H [facility] Rx#:[id number] Oral 530 Blood Product 290 Rc Pheresis 2 As3 Unit 290 [id number] Other 50 Rc Pheresis 2 As3 Unit 50 [id number] Output: Chest Tube Drainage 195 102 68 Lt Pleural [address] 0 Rt Pleural 50 30 50 Rt pleural Lt pleural CT 20 Urine 525 540 Other: Voiding Method Bedside Commode Urinal # Voids 1 1 # Bowel Movements 1 1 ABP, PAP, CO, CI - Last Documented Arterial Blood Pressure 100/58 Pulmonary Artery Pressure 30/10 Cardiac Output 8 Cardiac Index 3.9 - Exam No acute distress, oriented 3. Currently on 3 L nasal oxygen. No acute respiratory distress. HEENT examination is grossly unremarkable. Mucous membranes are moist. No oral lesions. Neck supple. Full range of motion. No adenopathy thyromegaly or neck vein distention. Cardiovascular examination reveals regular rhythm rate. S1-S2 normal. No S3 or S4. No discernible murmur noted. Heart rate 92 bpm. Lungs reveal scattered bilateral rhonchi. No wheezes or crackles. Breath sounds equal. Saturations are 98 % on 3 L. Abdomen soft bowel sounds are heard. No masses or tenderness. Extremities are intact. No cyanosis clubbing or edema. Skin is without rash or lesion. Neurologic examination is brief but nonfocal. - Labs CBC & Chem 7: 05/04/23 03:59 05/04/23 03:59 Labs: Abnormal Lab Results - Last 24 Hours (Table) 05/03/23 05/03/23 05/03/23 Range/Units 11:23 12:20 16:05 WBC 17.9 H (3.8-10.6) k/uL RBC 2.67 L (4.30-5.90) m/uL Hgb 7.6 L (13.0-17.5) gm/dL Hct 23.4 L (39.0-53.0) % RDW 15.6 H (11.5-15.5) % Plt Count 122 L (150-450) k/uL Neutrophils # (1.3-7.7) k/uL Lymphocytes # (1.0-4.8) k/uL Sodium (137-145) mmol/L Glucose (74-99) mg/dL POC Glucose (mg/dL) 195 H 186 H (70-110) mg/dL Calcium (8.4-10.2) mg/dL Total Protein (6.3-8.2) g/dL Albumin (3.5-5.0) g/dL 05/03/23 05/04/23 05/04/23 Range/Units 20:32 03:59 03:59 WBC 13.4 H (3.8-10.6) k/uL RBC 2.49 L (4.30-5.90) m/uL Hgb 7.3 L (13.0-17.5) gm/dL Hct 21.8 L (39.0-53.0) % RDW 15.7 H (11.5-15.5) % Plt Count 115 L (150-450) k/uL Neutrophils # 11.5 H (1.3-7.7) k/uL Lymphocytes # 0.9 L (1.0-4.8) k/uL Sodium 135 L (137-145) mmol/L Glucose 131 H (74-99) mg/dL POC Glucose (mg/dL) 187 H (70-110) mg/dL Calcium 7.7 L (8.4-10.2) mg/dL Total Protein 5.1 L (6.3-8.2) g/dL Albumin 2.9 L (3.5-5.0) g/dL 06/16/23 Range/Units 06:42 WBC (3.8-10.6) k/uL RBC (4.30-5.90) m/uL Hgb (13.0-17.5) gm/dL Hct (39.0-53.0) % RDW (11.5-15.5) % Plt Count (150-450) k/uL Neutrophils # (1.3-7.7) k/uL Lymphocytes # (1.0-4.8) k/uL Sodium (137-145) mmol/L Glucose (74-99) mg/dL POC Glucose (mg/dL) 161 H (70-110) mg/dL Calcium (8.4-10.2) mg/dL Total Protein (6.3-8.2) g/dL Albumin (3.5-5.0) g/dL Assessment and Plan Assessment: Post operative day #3 for an elective coronary artery bypass grafting 5 with a OSPINA to the diagonal branch and sequentially to the left anterior descending artery, radial artery from aorta to the ramus intermedius, saphenous vein graft from aorta sequential to the posterior descending artery and posteriolateral artery. Patient also had a left atrial appendage ligation. Acute hypoxemic respiratory failure, with successful extubation from the mechanical ventilator. Hypotension, requiring vasopressor support in the form of norepinephrine and vasopressin infusions, resolved. Acute blood loss anemia, expected outcome surgery. Leukocytosis, secondary to above. Coronary artery disease. History of CVA and patent [place] status post closure with Amplatzer Occluder in January,. Hyperlipidemia. Plan: Plan dated 05/03/2023. The patient will get a unit of packed red blood cells today for hemoglobin of 6.6. The patient remains on 3 L of oxygen, and saturations are in the mid 90s. The patient is postop day #2, status post five-vessel bypass grafting. Labs, x- rays, and medications are all reviewed. The patient's prognosis is guarded. We will continue to follow the patient and make recommendations along the way. Plan dated 05/04/2023. The patient received 1 unit of blood yesterday for hemoglobin of 6.6. Clinically, the patient's doing well. He remains on 3 L of oxygen. Saturations are 98%. He is getting lactated Ringer's at 20 mL an hour. Today is postop day #3. Possible transfer out of the intensive care unit, either today or tomorrow. Possible discharge from the hospital over the weekend or on Sunday. We will continue to follow make recommendations along the way. Labs, x-rays, and medications are all reviewed. Time with Patient: Less than 30
[2023-05-04 11:22] LABS: Glucose,Whole Blood 157 mg/dL (70-110)
[2023-05-04 16:29] LABS: Glucose,Whole Blood 138 mg/dL (70-110)
[2023-05-04 20:19] LABS: Glucose,Whole Blood 150 mg/dL (70-110)
[2023-05-04] MEDS: ATORVASTATIN 80 MG TAB PO SCH (20:41)
[2023-05-04 21:18] VITALS: RESP 18
[2023-05-05] MEDS: HEPARIN SODIUM,PORCINE/PF 5,000 UNIT/0.5 ML SYRINGE SQ SCH ×2 (00:13→09:05)
[2023-05-05] MEDS: AMIODARONE 200 MG TAB PO SCH (00:13)
[2023-05-05 05:11] LABS: Anisocytosis Slight; HCT 24.3 % (39.0-53.0); HGB 7.9 gm/dL (13.0-17.5); MCH 28.6 pg (25.0-35.0); MCHC 32.7 g/dL (31.0-37.0); MCV 87.5 fL (80.0-100.0); Mean Platelet Volume 8.7; Platelet Count 209 k/uL (150-450); RBC 2.77 m/uL (4.30-5.90); WBC 12.6 k/uL (3.8-10.6)
[2023-05-05 05:43] LABS: African American GFR (CKD) >90 (>60 ml/min/1.73 sqM); Anion Gap 7 mmol/L; Blood Urea Nitrogen 15 mg/dL (9-20); Calcium 8.1 mg/dL (8.4-10.2); Carbon Dioxide 26 mmol/L (22-30); Chloride 102 mmol/L (98-107); Glucose 123 mg/dL (74-99); Non-African American GFR(CKD) >90 (>60 ml/min/1.73 sqM); Sodium 135 mmol/L (137-145)
[2023-05-05 06:15] LABS: Glucose,Whole Blood 128 mg/dL (70-110)
[2023-05-05] MEDS: INSULIN ASPART (NovoLOG) 100 UNIT/ML VIAL SQ SCH (06:16)
[2023-05-05] MEDS: FERROUS SULFATE 325 MG TAB PO SCH (06:17)
[2023-05-05] MEDS: PANTOPRAZOLE 40 MG TABLET PO SCH (06:17)
[2023-05-05] MEDS: ASCORBIC ACID 500 MG TAB PO SCH (06:17)
--- NOTE | 2023-05-05 06:55 | XR ---
EXAMINATION TYPE: XR chest 2V DATE OF EXAM: 05/05/2023 6:36 AM COMPARISON: Chest radiographs from 05/04/2023 TECHNIQUE: XR chest 2V Frontal and lateral views of the chest. CLINICAL INDICATION:Male, 57 years old with history of post cardiac surgery; FINDINGS: Lungs/Pleura: Bibasilar atelectasis. No evidence for pneumothorax, pleural effusion or focal consolid ation. Pulmonary vascularity: Unremarkable. Heart/mediastinum: Cardiomediastinal silhouette is unremarkable. Left atrial appendage occlusion jaki ce is present. Loop recorder is present. Musculoskeletal: No acute osseous pathology. Midline sternotomy wires are noted. Other findings: None Lines/Tubes: Interval removal of left thoracotomy tube. IMPRESSION: Overall stable appearance of the lungs with basilar atelectasis. Removal of left thoracotomy tube. No evidence of pneumothorax.
--- NOTE | 2023-05-05 07:16 | P.PN ---
Subjective Progress Note Date: 05/05/23 Principal diagnosis: Triple-vessel coronary artery disease. History of recent CVA without residual effect, PFO status post closure in January 2023, hyperlipidemia, daily EtOH use, n ever smoker POD #4 coronary artery bypass grafting 5, left internal mammary artery sequential to the first diagonal branch then left anterior descending artery, left radial artery from the aorta to the ramus intermedius, reverse saphenous vein graft from the aorta sequentially to the posterior descending artery and posterior lateral branch of the right coronary artery, endoscopic left radial and left greater saphenous vein harvest, left atrial appendage ligation with a 35 mm AtriClip, intraoperative transesophageal echocardiogram performed by anesthesia, graft flow measurements using the Medistim Postoperative acute blood loss anemia and thrombocytopenia, expected given hemodilution and cardiopulmonary bypass pump Hypotension The patient was seen and examined this morning sitting up in a recliner in no acute distress on the cardiac stepdown unit. States post surgical pain is better controlled, appears comfortable, denies shortness of breath. Currently in sinus rhythm, hemodynamically stable. Urine output stable. Chest x-ray, lab work reviewed. Patient has ambulated in the hallway without difficulty. States he feels ready to go home. No other new concerns. Objective - Vital Signs Vital signs: Vital Signs Temp 98.1 F 05/05/23 04:00 Pulse 87 05/05/23 04:00 Resp 18 05/05/23 04:00 BP 107/70 05/05/23 04:00 Pulse Ox 93 L 05/05/23 04:00 FiO2 50 05/01/23 22:15 Intake & Output 05/04/23 05/05/23 05/05/23 18:59 06:59 18:59 Intake Total 649 10 Output Total 529 1450 Balance 120 -1440 Weight 95.8 kg Intake: IV 69 10 CVP 9 Invasive Line 3 10 Lactated Ringers 1,000 ml 60 @ 20 mls/hr IV .Q24H [facility] Rx#:[id number] Oral 580 Output: Chest Tube Drainage 104 Lt Pleural 54 Rt Pleural 50 Urine 425 1450 Other: Voiding Method Urinal Urinal # Voids 1 1 # Bowel Movements 1 1 ABP, PAP, CO, CI - Last Documented Arterial Blood Pressure 100/58 Pulmonary Artery Pressure 30/10 Cardiac Output 8 Cardiac Index 3.9 - Exam CONSTITUTIONAL: Appears comfortable, cooperative, no acute distress RESPIRATORY: Lungs sounds diminished bilaterally. Respirations even, nonlabored. Currently on room air with oxygen saturation 93%. Able to achieve 1500 mL on incentive spirometry. Strong cough. CARDIOVASCULAR: S1, S2 present. Regular rate and rhythm, sinus rhythm on telemetry. Sternum stable. Palpable peripheral pulses bilaterally. No edema present. No calf pain or tenderness noted. Heart hugger in place with patient demonstrating appropriate use. Antiembolism stockings, SCDs present. GASTROINTESTINAL: Abdomen soft, nontender, nondistended. Active bowel sounds present 4 quadrants. Tolerating diet. Positive bowel movement GENITOURINARY: Continues to void, output 1875 mL in the last 24 hours INTEGUMENTARY: Skin is warm and dry with evidence of good perfusion. Anterior chest incision well approximated and covered with dry intact dressing. Left radial artery harvest site as well as left lower extremity EVH site well approximated without redness NEUROLOGIC: Cranial nerves II through XII intact MUSKULOSKELETAL: Able to move all extremities, strength equal bilaterally PSYCHIATRIC: Alert and oriented to person place and time, appropriate affect, intact judgment and insight INVASIVE LINES AND TUBES: A/V epicardial pacemaker wires present, grounded - Allied health notes Allied health notes reviewed: nursing - Labs CBC & Chem 7: 05/05/23 04:34 05/05/23 04:34 Labs: Abnormal Lab Results - Last 24 Hours (Table) 05/04/23 05/04/23 05/04/23 Range/Units 11:21 16:28 20:18 WBC (3.8-10.6) k/uL RBC (4.30-5.90) m/uL Hgb (13.0-17.5) gm/dL Hct (39.0-53.0) % RDW (11.5-15.5) % Sodium (137-145) mmol/L Glucose (74-99) mg/dL POC Glucose (mg/dL) 157 H 138 H 150 H (70-110) mg/dL Calcium (8.4-10.2) mg/dL 05/05/23 05/05/23 05/05/23 Range/Units 04:34 04:34 06:14 WBC 12.6 H (3.8-10.6) k/uL RBC 2.77 L (4.30-5.90) m/uL Hgb 7.9 L (13.0-17.5) gm/dL Hct 24.3 L (39.0-53.0) % RDW 16.0 H (11.5-15.5) % Sodium 135 L (137-145) mmol/L Glucose 123 H (74-99) mg/dL POC Glucose (mg/dL) 128 H (70-110) mg/dL Calcium 8.1 L (8.4-10.2) mg/dL - Imaging and Cardiology Chest x-ray: report reviewed, image reviewed Assessment and Plan Assessment: Triple-vessel coronary artery disease, status post 5 vessel CABG History of recent CVA without residual effect PFO status post closure in January 2023 Hyperlipidemia, Daily EtOH use Never smoker Postoperative acute blood loss anemia and thrombocytopenia, expected Hypotension Plan: Continue to maximize medical therapy with aspirin, statin, plavix, beta emma Encourage incentive spirometry 10x every hour while awake. Bronchodilators per pulmonology Increase activity, ambulate as tolerated. PT/OT/cardiac rehab following GI/DVT prophylaxis Pain control with current medication regimen Insulin managment per internal medicine, patient is not diabetic, preoperative HgA1c 6% Will discontinue epicardial pacemaker wires, patient to remain on bedrest for 1 hour post-wire removal Strict accurate intake and output Daily weights Patient to shower this morning Discharge planning in progress, anticipate discharge to home with home care today More recommendations to follow depending on patient's progress
--- NOTE | 2023-05-05 08:06 | P.PN ---
Subjective Progress Note Date: 05/05/23 Principal diagnosis: Status post CABG The patient is a pleasant 57-year-old gentleman with CAD as well as hypertension and dyslipidemia who is status post coronary artery bypass grafting. May 042022 This is postoperative patient day #3. He seems to be stable doing well from a cardiac vascular standpoint overview. He remains hemodynamically stable with marginally low blood pressure and currently he is on metoprolol only with a heart rate in the 80s. He might benefit from some out and mean. Kidney function remains stable and urine output continues to be within normal limits. He has been maintaining normal sinus mechanism. He is on dual antiplatelet therapy along with high intensity statin along with beta emma. The examination is remarkable for regular rhythm with a systolic murmur at the right upper sternal border was clear breathing sounds bilaterally and no lower extremities edema noted May 052022 The patient was seen and evaluated this morning. He is stable and asymptomatic from a cardiovascular standpoint of view. The patient is potentially going to be discharged home later on today. Assessment CAD and status post CABG Hypertension Dyslipidemia History of PFO status post percutaneous closure Plan Continue the current medical regimen Continue dual antiplatelet therapy along with high intensity statin Follow-up with the patient Objective - Vital Signs Vital signs: Vital Signs Temp 98.1 F 05/05/23 04:00 Pulse 87 05/05/23 04:00 Resp 18 05/05/23 04:00 BP 107/70 05/05/23 04:00 Pulse Ox 93 L 05/05/23 04:00 FiO2 50 05/01/23 22:15 Intake & Output 05/04/23 05/05/23 05/05/23 18:59 06:59 18:59 Intake Total 649 10 Output Total 529 1450 Balance 120 -1440 Weight 95.8 kg Intake: IV 69 10 CVP 9 Invasive Line 3 10 Lactated Ringers 1,000 ml 60 @ 20 mls/hr IV .Q24H [facility] Rx#:[id number] Oral 580 Output: Chest Tube Drainage 104 Lt Pleural 54 Rt Pleural 50 Urine 425 1450 Other: Voiding Method Urinal Urinal # Voids 1 1 # Bowel Movements 1 1 ABP, PAP, CO, CI - Last Documented Arterial Blood Pressure 100/58 Pulmonary Artery Pressure 30/10 Cardiac Output 8 Cardiac Index 3.9 - Labs CBC & Chem 7: 05/05/23 04:34 05/05/23 04:34 Labs: Abnormal Lab Results - Last 24 Hours (Table) 05/04/23 05/04/23 05/04/23 Range/Units 11:21 16:28 20:18 WBC (3.8-10.6) k/uL RBC (4.30-5.90) m/uL Hgb (13.0-17.5) gm/dL Hct (39.0-53.0) % RDW (11.5-15.5) % Sodium (137-145) mmol/L Glucose (74-99) mg/dL POC Glucose (mg/dL) 157 H 138 H 150 H (70-110) mg/dL Calcium (8.4-10.2) mg/dL 05/05/23 05/05/23 05/05/23 Range/Units 04:34 04:34 06:14 WBC 12.6 H (3.8-10.6) k/uL RBC 2.77 L (4.30-5.90) m/uL Hgb 7.9 L (13.0-17.5) gm/dL Hct 24.3 L (39.0-53.0) % RDW 16.0 H (11.5-15.5) % Sodium 135 L (137-145) mmol/L Glucose 123 H (74-99) mg/dL POC Glucose (mg/dL) 128 H (70-110) mg/dL Calcium 8.1 L (8.4-10.2) mg/dL
[2023-05-05] MEDS: IPRATROPIUM-ALBUTEROL 3 ML NEB INHALATION SCH (08:40)
[2023-05-05] MEDS: CLOPIDOGREL 75 MG TAB PO SCH (09:05)
[2023-05-05] MEDS: METOPROLOL TARTRATE 25 MG TAB PO SCH (09:05)
[2023-05-05] MEDS: ASPIRIN 325 MG TAB PO SCH (09:05)
[2023-05-05 10:20] VITALS: BP 100/65; PULSE 96; TEMP 98.3
--- NOTE | 2023-05-05 11:09 | P.PN ---
Subjective Progress Note Date: 05/05/23 Principal diagnosis: Status post five-vessel bypass grafting. I am seeing this patient in new consultation today 05/02/2023 in the intensive care unit status post operative day #1 for an elective coronary artery bypass grafting 5 with a OSPINA to the diagonal branch and sequentially to the left anterior descending artery, radial artery from aorta to the ramus intermedius, saphenous vein graft from aorta sequential to the posterior descending artery and posteriolateral artery. Patient also had a left atrial appendage ligation. Patient is a 57-year-old white male with past medical history significant for CVA and patent PFO which was closed with Amplatzer Occluder in January,, coronary artery disease, hyperlipidemia. He is a never smoker. He did have a pulmonary function test preoperatively, which had poor patient effort. Based on the patient's best spirometry, he was at no increased operative risk. Postoperatively, the patient was transferred to the intensive care unit intubated and on mechanical ventilator. On my evaluation, the patient was on pressure support of 5 and CPAP of 5 with an FiO2 of 50%. He is awake and alert and able to follow commands. Follow-up ABGs after 30 minutes on these settings show a PaO2 157, pCO2 of 37, pH of 7.4. Weaning parameters were all adequate with a positive cuff leak, RSBI 58, respiratory rate of 23, tidal volume 441, MV 9.5, and NIF -20, VC 5.79L. The patient was then extubated uneventfully to 4 L nasal cannula. He is comfortable without any respiratory distress. He appears neurologically intact without any focal deficits. Blood pressure and cardiac output/index are marginal with a blood pressure 80s over 40s and the last CO/CI of 4.6 and 2.2 respectively. PA pressures are 31/9, indicating some volume deficit. Patient has reportedly artery received 750 ML's of 5% albumin. He also received 2 L of crystalloid intraoperatively. Estimated blood loss was 1.8 L. Chest tube output has a total of 300 ML's of sanguinous drainage total from the mediastinal chest tube and 800 ML's of serosanguineous output from the right and left pleural chest tubes total. He has not required any blood product. Urine output is in order of 20 ML's per hour. Lactated Ringer's is infusing at 50 ML's per hour. He is requiring vasopressor support in the form of norepinephrine at 0.13 mcg/kg/m or approximately 13 mics per minute, vasopressin at physiological dose, and milrinone at 0.2 mcg/kg/m. Patient's nitroglycerin is currently on hold for hypotension. Patient does have a epicardial pacemaker and a backup of 60 bpm and settings of DDD. Intrinsic heart rhythm is normal sinus and heart rate is currently 96 bpm. Most recent CBC shows a WBC count of 18, hemoglobin 9.4, hematocrit 27.6, platelets 176. Most recent BMP shows a sodium 139, potassium 4.4, chloride 108, serum CO2 25, BUN 13, creatinine 0.74, glucose 98. LFTs are not elevated. Insulin is infusing at 4.5 units per hour per protocol. Patient will be monitored in intensive care unit. Progress note dated 05/03/2023. 57-year-old male postop day #2, status post 5 vessel bypass grafting. He seen today in room 253. He is on 3 L of oxygen. He is getting lactated Ringer's at 50 mL an hour. His hemoglobins morning was 6.6. He'll be receiving 1 unit of packed red blood cells. Labs today include a white count of 14, hemoglobin 6.6, hematocrit 19.8, and a platelet count of 106,000. Sodium 133, potassium 4.5, chlorides 104, CO2 24, anion gap 5, BUN 15, and a creatinine of 0.86. Albumin is 3.0. Chest x-ray shows a stable postoperative chest x-ray with bilateral consolidation and pleural effusions. Clinically, the patient's doing very well, without any major complaints, other than pain at the surgical site. Progress note dated 05/04/2023. 57-year-old male, being seen in room 253. The patient is postop day #3, status post five-vessel bypass grafting. Currently, the patient's doing relatively well. He is on 3 L of oxygen. He is getting lactated Ringer's at 20 mL an hour. The patient has no complaints. He is doing reasonably well on his incentive spirometer. White count 13.4, hemoglobin 7.3, hematocrit 21.8, and a platelet count 115,000. Sodium 135, potassium 4.3, chlorides 103, CO2 28, BUN 13, creatinine 0.84. Albumin is 2.9. Chest x-ray shows some bibasilar atelectasis and small effusions. Progress note dated 05/05/2023. 57-year-old male seen today in room 380. The patient is postop day #4, status post five-vessel bypass grafting. The patient's currently on room air. Not receiving any IV fluids. The patient is likely to be discharged home later today. White count 12.6, heme him some 0.9, hematocrit 24.3, and platelet count 209,000. Sodium 135, potassium 4, chlorides 102, CO2 26, BUN 15, creatinine 0.82. Calcium is 8.1. Chest x-ray shows postoperative changes, and some bibasilar atelectasis. Objective - Vital Signs Vital signs: Vital Signs Temp 98.3 F 05/05/23 08:00 Pulse 90 05/05/23 08:49 Resp 18 05/05/23 08:00 BP 100/65 05/05/23 08:00 Pulse Ox 96 05/05/23 08:43 FiO2 50 05/01/23 22:15 Intake & Output 05/04/23 05/05/23 05/05/23 18:59 06:59 18:59 Intake Total 649 10 180 Output Total 529 1450 550 Balance 120 -1440 -370 Weight 95.8 kg Intake: IV 69 10 CVP 9 Invasive Line 3 10 Lactated Ringers 1,000 ml 60 @ 20 mls/hr IV .Q24H [facility] Rx#:[id number] Oral 580 180 Output: Chest Tube Drainage 104 Lt Pleural 54 Rt Pleural 50 Urine 425 1450 550 Other: Voiding Method Urinal Urinal Urinal # Voids 1 1 # Bowel Movements 1 1 ABP, PAP, CO, CI - Last Documented Arterial Blood Pressure 100/58 Pulmonary Artery Pressure 30/10 Cardiac Output 8 Cardiac Index 3.9 - Exam No acute distress, oriented 3. Currently on room air. No respiratory distress. No conversational dyspnea. HEENT examination is grossly unremarkable. Mucous membranes are moist. No oral lesions. Neck supple. Full range of motion. No adenopathy thyromegaly or neck vein distention. Cardiovascular examination reveals regular rhythm rate. S1-S2 normal. No S3 or S4. No discernible murmur noted. Heart rate 90 bpm. Lungs reveal mild scattered bilateral rhonchi. No wheezes or crackles. Breath sounds equal. Room air saturation is 96%. Abdomen soft bowel sounds are heard. No masses or tenderness. Extremities are intact. No cyanosis clubbing or edema. Skin is without rash or lesion. Neurologic examination is brief but nonfocal. - Labs CBC & Chem 7: 05/05/23 04:34 05/05/23 04:34 Labs: Abnormal Lab Results - Last 24 Hours (Table) 05/04/23 05/04/23 05/04/23 Range/Units 11:21 16:28 20:18 WBC (3.8-10.6) k/uL RBC (4.30-5.90) m/uL Hgb (13.0-17.5) gm/dL Hct (39.0-53.0) % RDW (11.5-15.5) % Sodium (137-145) mmol/L Glucose (74-99) mg/dL POC Glucose (mg/dL) 157 H 138 H 150 H (70-110) mg/dL Calcium (8.4-10.2) mg/dL 05/05/23 05/05/23 05/05/23 Range/Units 04:34 04:34 06:14 WBC 12.6 H (3.8-10.6) k/uL RBC 2.77 L (4.30-5.90) m/uL Hgb 7.9 L (13.0-17.5) gm/dL Hct 24.3 L (39.0-53.0) % RDW 16.0 H (11.5-15.5) % Sodium 135 L (137-145) mmol/L Glucose 123 H (74-99) mg/dL POC Glucose (mg/dL) 128 H (70-110) mg/dL Calcium 8.1 L (8.4-10.2) mg/dL Assessment and Plan Assessment: Post operative day #4 for an elective coronary artery bypass grafting 5 with a OSPINA to the diagonal branch and sequentially to the left anterior descending artery, radial artery from aorta to the ramus intermedius, saphenous vein graft from aorta sequential to the posterior descending artery and posteriolateral artery. Patient also had a left atrial appendage ligation. Acute hypoxemic respiratory failure, with successful extubation from the mechani liset ventilator. Hypotension, requiring vasopressor support in the form of norepinephrine and vasopressin infusions, resolved. Acute blood loss anemia, expected outcome surgery. Leukocytosis, secondary to above. Coronary artery disease. History of CVA and patent dorantes ovale status post closure with Amplatzer Occluder in January,. Hyperlipidemia. Plan: Plan dated 05/03/2023. The patient will get a unit of packed red blood cells today for hemoglobin of 6.6. The patient remains on 3 L of oxygen, and saturations are in the mid 90s. The patient is postop day #2, status post five-vessel bypass grafting. Labs, x- rays, and medications are all reviewed. The patient's prognosis is guarded. We will continue to follow the patient and make recommendations along the way. Plan dated 05/04/2023. The patient received 1 unit of blood yesterday for hemoglobin of 6.6. Clin ically, the patient's doing well. He remains on 3 L of oxygen. Saturations are 98%. He is getting lactated Ringer's at 20 mL an hour. Today is postop day #3. Possible transfer out of the intensive care unit, either today or tomorrow. Possible discharge from the hospital over the weekend or on Sunday. We will continue to follow make recommendations along the way. Labs, x-rays, and medications are all reviewed. Plan dated 05/05/2023. The patient's doing well. He seen today in room 380. The plan is to discharge him home today. He is on room air. Is not receiving any IV fluids. Today's postop day #4. Labs, x-rays, medications are reviewed. His chest x-ray show some postsurgical changes, and some mild bibasilar atelectasis. The patient will see me in the office, and follow-up. No additional recommendations are made. Time with Patient: Less than 30
--- NOTE | 2023-05-05 11:13 | P.DS ---
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 Triple-vessel coronary artery disease 2. History of recent CVA without residual effect 3. PFO status post closure in January 2023 4. Hyperlipidemia, treated, cholesterol 191, LDL 101, triglycerides 252 5. EtOH use 6. Never smoker, preoperative FEV1 89% of predicted 7. Postoperative acute blood loss anemia and thrombocytopenia, expected 8. Hypotension PRINCIPAL PROCEDURE: 1. Coronary artery bypass grafting 5, left internal mammary artery sequential to the first diagonal branch then left anterior descending artery, left radial artery from the aorta to the ramus intermedius, reverse saphenous vein graft from the aorta sequentially to the posterior descending artery and posterior lateral branch of the right coronary artery 2. Endoscopic left radial and left greater saphenous vein harvest 3. Left atrial appendage ligation with a 35 mm AtriClip 4. Intraoperative transesophageal echocardiogram performed by anesthesia 5. Graft flow measurements using the [employer] system HISTORY OF PRESENT ILLNESS: This is a 57-year-old gentleman who follows outpatient with nurse practitioner Anastasia Nolan for primary care and Dr. Tate for cardiology. He recently had a stroke and workup revealed patent foramen ovale. He underwent PFO closure with Amplatzer occluder in January 2023. Subsequently he underwent stress testing as required by the [facility] for his job, and the stress test was abnormal. He was recommended to undergo heart catheterization which demonstrated mid RCA stenosis 70%, PLV branch of the RCA 60%, [employer] of the left circumflex, ostial ramus 80-90%, and proximal LAD with 80- 90% with ostial second diagonal at 60%. The patient was referred to Dr. Barr from cardiothoracic surgery. He was recommended to undergo coronary artery bypass grafting. The usual perioperative course was discussed in detail with the patient and his family, all risks and benefits were explained, all questions were answered, and consent was obtained to proceed with surgery. The patient was scheduled for elective surgery at the earliest possible date. HOSPITAL COURSE: The patient was brought to the hospital on 05/01/23, taken to the preoperative area, prepared in the usual fashion, and subsequently taken to the operating room where Dr. Barr performed 5 vessel CABG. Upon completion of surgery the patient was transferred to the cardiovascular intensive care unit where he was recovered and monitored hemodynamically. He was extubated, all lines, tubes, and drips were discontinued when appropriate, and he was transferred to 3 S cardiac stepdown unit for further monitoring and rehabi litation. His oxygen was titrated down, he continued to work with physical and occupational therapy, he was tolerating oral diet, his pain was controlled, and he was ready to be discharged to home with [facility] care on postoperative day #4. He received written and verbal instruction regarding his medications, activity restrictions, signs and symptoms requiring physician notification, and follow-up appointments. Patient Condition at Discharge: Stable Plan - Discharge Summary Discharge Rx Participant: No New Discharge Prescriptions: No Action Clopidogrel [Plavix] 75 mg PO HS Atorvastatin [Lipitor] 80 mg PO HS Discharge Medication List Atorvastatin [Lipitor] 80 mg PO HS 01/11/23 [History] Clopidogrel [Plavix] 75 mg PO HS 01/11/23 [History] Follow up Appointment(s)/Referral(s): Janet Adrian NPC [Nurse Practitioner] - 05/11/23 12:00 pm (You will be seen in the surgeon's office behind the hospital in [facility], [address] Office phone number is . Please feel free to come earlier in the week if you feel it's necessary, we are available everyday) Rehab [facility] REARDON,Cardiac [NON-STAFF] - 4 Weeks (You will receive a phone call in approximately 4-6 weeks for evaluation for cardiac rehab) [facility], [facility] [REFERRING] - 05/15/23 10:30 am Alfredo Tate MD [STAFF PHYSICIAN] - 05/17/23 3:30 pm (At the [place] office) Kali Weber DO [Doctor of Osteopathic Medicine] - 06/08/23 1:15 pm (Office will call with earlier appointment if they have a cancellation) [facility], [NON-STAFF] - 1-2 Days (To see patient day after discharge, then 2-3 times per week for 4 weeks) Azar Barr MD [STAFF PHYSICIAN] - 06/06/23 2:00 pm Activity/Diet/Wound Care/Special Instructions: DISCHARGE INSTRUCTIONS: 1. No driving for 4 weeks, or until physician gives their ok. 2. The patient should sleep in their own bed, no medical bed needed. 3. Stairs are not an issue. If the bedroom is upstairs, it is advised that the patient go up at night and down in the morning for the first week. Go slowly, using handrail and take 1 step at a time. 4. WILBER hose are to be worn for 30 days post surgery or until physician discontinues. 5. Heart hugger is to be worn 100% of the time until physician discontinues.(except when showering) 6. No lifting, pushing, or pulling more than 10 pounds for 12 weeks. The physician will advise of any restriction changes. 7. The patient is expected to continue the prescribed walking program. 8. Continue pain control per as needed orders. 9. Continue with incentive spirometry and splinting/heart hugger until otherwise directed by the physician. 10. Must shower daily using liquid antibacterial soap 11. Routine sternal incision care. No powders, lotions, ointments on incisions. No dressings are necessary on incisions unless they are draining. Dermabond tape is to remain on sternal incision until surgeon follow-up. 12. Please call surgeon/LABOR CONTRACTOR for temp greater than 101 F or purulent drainage from incisions. 13. You should weigh yourself daily, record and bring log with you to follow up appointments. 14. All prescriptions given by surgeon for 30 days. Refills need to be filled t hrough facilities painter/primary care physician. 15. A Red armband has been placed on the patient. It should be worn for 30 days post discharge from surgery and will be removed by the cardiac surgeons. If an ER visit is necessary, please make sure the number on the Red armband is called before going to ER. 16. You have been referred to and are expected to begin Cardiac Rehab in approximately 4-6 weeks. HOME HEALTH SERVICES TO PROVIDE: RN SKILLED HOME CARE SERVICES FOR POST-OP SURGICAL PATIENTS WITH THE FOLLOWING: Coronary Artery Bypass Surgery (CABG), Mitral Valve Replacement /Repair ( MVR), Aortic Valve Replacement/Repair (AVR) RN TO CONTINUE EDUCATION FROM ``ROAD TO A HEALTH HEART PATIENT EDUCATION MANUAL (GIVEN TO PATIENT IN THE HOSPITAL) MEDICATION RECONCILIATION WITH EDUCATION NEEDED ON FIRST HOME VISIT EMPHASIZE IMPORTANCE OF WEARING BREAST SUPPORT/HEART HUGGER ENCOURAGE USE OF INCENTIVE SPIROMETER 10 X EVERY HOUR WHILE AWAKE ENCOURAGE UTILIZATION OF LOWER EXTREMITY COMPRESSION STOCKINGS/WILBER HOSE and ELEVATE LEGS ABOVE LEVEL OF HEART WHILE AT REST. ENCOURAGE AMBULATION 3-5x/day INCREASING TOLERATES, WHILE AVOIDING EXTREMES IN TEMPERATURE FREQUENCY: RN TO OPEN THE PATIENT WITHIN 24 HOURS OF DISCHARGE FROM THE HOSPITAL WITH TELEHEALTH INSTALLED AT [facility], RN TO VISIT 2-3 X A WEEK FOR 4 WEEKS ESTABLISHED BY PATIENT NEEDS. LABORATORY: CBC, CMP TO BE DRAWN ON THE THIRD DAY HOME, (RAN STAT) FAX RESULTS TO [phone]. TELEHEALTH PARAMETERS: WEIGHT: NOTIFY MD OF WEIGHT GAIN OF 2 LBS IN 24 HOURS OR 5 LBS IN ONE WEEK HR: NOTIFY MD OF HR <55 BPM OR HR>100 BPM BP: NOTIFY MD IF BP <90/55 OR BP>140/100 O2 SAT: NOTIFY MD IF PO2<93% ON ROOM AIR SEND TELEHEALTH REPORT TO STERILE PROCESSING TECH AND CARDIOVASCULAR SURGEON THE FIRST WEEK OF CARE AND THEN BI-WEEKLY. PLEASE ADDITIONALLY COMMUNICATE ANY ABNORMALS AND NEW FINDINGS TO THE SURGEONS OFFICE. Discharge Disposition: HOME WITH HOME HEALTH SERVICES
[2023-05-05] MEDS ORDERED: AMIODARONE 200 MG TAB PO SCH (12:00)
--- NOTE | 2023-05-05 15:42 | P.PN ---
Subjective Progress Note Date: 05/05/23 (delayed charting seen at 11am) Patient is a 57-year-old male with a medical history of coronary artery disease, dyslipidemia, and prior TIA who presented for five-vessel coronary artery bypass grafting. Patient tolerated the procedure well and was subsequently admitted to the ICU. We were asked to consult for anemia. Patient seen and examined at bedside with family present. He is in the process of getting ready for discharge. He has no complaints currently and is excited to go home. Vital signs reviewed General: nontoxic, no distress, appears at stated age Derm: midline chest incision covered with dressing no soak through Neuro: CN II-XI grossly intact, no focal neuro deficits Psych: Alert, oriented, appropriate affect Assessment/Plan: 57-year-old male status post 5 vessel coronary artery bypass grafting and left atrial appendage ligation Prediabetes with A1c 6 Obesity with BMI 33.5 -Patient was able to tell back that he should be checking his blood sugars once daily before eating or drinking anything and take a log to Anastasia Nolan his primary care provider Acute blood loss anemia and , anticipated outcome of procedure, status post 1 unit pRBC -Follow CBC -No indication for further transfusion at this time - continue with ferrous sulfate 325 mg BID X 30 days Acute hypoxic respiratory failure - wean O2 as able - aggressive pulmonary hygiene Dyslipidemia - statin Chronic/resolved: thrombocytopenia History of recent TIA Sinus tachycardia Acute hypoxic respiratory failure Postoperative hypotension Data Review: Vital signs reviewed temperature 98.3, pulse 96, respirations 18, blood pressure 100/65, O2 sat 96% on room air Labs reviewed remarkable for white blood cell count 12.6, hemoglobin 7.9. These are relatively unchanged from yesterday. DVT prophylaxis: Heparin Thank you for allowing us to participate in the care of this pleasant patient. Do not hesitate to contact us with questions. Someone can be reached from the [facility] hospitalist group all hours of the day at [phone] or via [employer]. This dictation was prepared using [employer] voice recognition software. Though every attempt is made to correct errors during dictation some may still exist. Objective - Vital Signs Vital signs: Vital Signs Temp 98.3 F 05/05/23 08:00 Pulse 90 05/05/23 08:49 Resp 18 05/05/23 08:00 BP 100/65 05/05/23 08:00 Pulse Ox 96 05/05/23 08:43 FiO2 50 05/01/23 22:15 Intake & Output 05/04/23 05/05/23 05/05/23 18:59 06:59 18:59 Intake Total 649 10 180 Output Total 529 1450 550 Balance 120 -1440 -370 Weight 95.8 kg Intake: IV 69 10 CVP 9 Invasive Line 3 10 Lactated Ringers 1,000 ml 60 @ 20 mls/hr IV .Q24H [facility] Rx#:[id number] Oral 580 180 Output: Chest Tube Drainage 104 Lt Pleural 54 Rt Pleural 50 Urine 425 1450 550 Other: Voiding Method Urinal Urinal Urinal # Voids 1 1 # Bowel Movements 1 1 ABP, PAP, CO, CI - Last Documented Arterial Blood Pressure 100/58 Pulmonary Artery Pressure 30/10 Cardiac Output 8 Cardiac Index 3.9 - Labs CBC & Chem 7: 05/05/23 04:34 05/05/23 04:34 Labs: Abnormal Lab Results - Last 24 Hours (Table) 05/04/23 05/04/23 05/05/23 Range/Units 16:28 20:18 04:34 WBC 12.6 H (3.8-10.6) k/uL RBC 2.77 L (4.30-5.90) m/uL Hgb 7.9 L (13.0-17.5) gm/dL Hct 24.3 L (39.0-53.0) % RDW 16.0 H (11.5-15.5) % Sodium (137-145) mmol/L Glucose (74-99) mg/dL POC Glucose (mg/dL) 138 H 150 H (70-110) mg/dL Calcium (8.4-10.2) mg/dL 05/05/23 05/05/23 Range/Units 04:34 06:14 WBC (3.8-10.6) k/uL RBC (4.30-5.90) m/uL Hgb (13.0-17.5) gm/dL Hct (39.0-53.0) % RDW (11.5-15.5) % Sodium 135 L (137-145) mmol/L Glucose 123 H (74-99) mg/dL POC Glucose (mg/dL) 128 H (70-110) mg/dL Calcium 8.1 L (8.4-10.2) mg/dL
== END 2023-05-05 11:30 | disposition home health service (06) | DRG 235 ==
LOC: 2ORMAIN 05:39 → 2SICU 14:10 → 3SCARD 05-04 18:55
PROVIDERS: ADMIT Thoracic Surgery (Cardiothoracic Vascular Surgery); ATTEND Thoracic Surgery (Cardiothoracic Vascular Surgery)
PROC: 3E043XZ Introduction of Vasopressor into Central Vein, Percutaneous Approach (ICD-10-PCS; principal; 2023-05-01 08:00)
PROC: 02100AW Bypass Coronary Artery, One Artery from Aorta with Autologous Arterial Tissue, Open Approach (ICD-10-PCS; principal; 2023-05-01 08:00)
PROC: 02110Z9 Bypass Coronary Artery, Two Arteries from Left Internal Mammary, Open Approach (ICD-10-PCS; principal; 2023-05-01 08:00)
PROC: 02L70CK Occlusion of Left Atrial Appendage with Extraluminal Device, Open Approach (ICD-10-PCS; principal; 2023-05-01 08:00)
PROC: 03BC4ZZ Excision of Left Radial Artery, Percutaneous Endoscopic Approach (ICD-10-PCS; principal; 2023-05-01 08:00)
PROC: 5A1221Z Performance of Cardiac Output, Continuous (ICD-10-PCS; principal; 2023-05-01 08:00)
PROC: 06BQ4ZZ Excision of Left Saphenous Vein, Percutaneous Endoscopic Approach (ICD-10-PCS; principal; 2023-05-01 08:00)
PROC: 4A0305C Measurement of Arterial Flow, Coronary, Open Approach (ICD-10-PCS; principal; 2023-05-01 08:00)
PROC: 021109W Bypass Coronary Artery, Two Arteries from Aorta with Autologous Venous Tissue, Open Approach (ICD-10-PCS; principal; 2023-05-01 08:00)
PROC: B24BZZ4 Ultrasonography of Heart with Aorta, Transesophageal (ICD-10-PCS; 2023-05-01 08:00)
PROC: 30233N1 Transfusion of Nonautologous Red Blood Cells into Peripheral Vein, Percutaneous Approach (ICD-10-PCS; 2023-05-03)
DX: I25.10 Atherosclerotic heart disease of native coronary artery without angina pectoris (principal); J96.01 Acute respiratory failure with hypoxia; D62 Acute posthemorrhagic anemia; J98.11 Atelectasis; J90 Pleural effusion, not elsewhere classified; D69.6 Thrombocytopenia, unspecified; I95.9 Hypotension, unspecified; Z28.310 Unvaccinated for COVID-19; I25.82 Chronic total occlusion of coronary artery; I11.9 Hypertensive heart disease without heart failure; D72.829 Elevated white blood cell count, unspecified; E78.5 Hyperlipidemia, unspecified; I83.90 Asymptomatic varicose veins of unspecified lower extremity; R73.03 Prediabetes; E66.9 Obesity, unspecified; Z68.33 Body mass index [BMI] 33.0-33.9, adult; Z79.02 Long term (current) use of antithrombotics/antiplatelets; Z79.899 Other long term (current) drug therapy; Z86.73 Personal history of transient ischemic attack (TIA), and cerebral infarction without residual deficits; Z87.74 Personal history of (corrected) congenital malformations of heart and circulatory system; Z71.3 Dietary counseling and surveillance
CPT/HCPCS: 71045; 71046; 80048; 80053; 82330; 82805; 83735; 85025; 85027; 85384; 85520; 85610; 85730; 86850; 86891; 86900; 86901; 86920; 94002; 94640; 94760